=== PATIENT | male | born 1945 | race Caucasian/White ===

== ENCOUNTER 2021-03-03 09:26 | Emergency (ER) | payer OTHER, SELFPAY ==
--- NOTE | 2021-03-03 09:48 | ED_ITS ---
HPI - Extremity Problem General: Chief complaint: Extremity Problem,Nontraumatic Stated complaint: LUMP ON FINGER/L. HAND/SENT FROM [place] Time Seen by Provider: 03/03/21 09:32 History of Present Illness: HPI Narrative: 75-year-old male comes in complaining of a lump on his left third finger developed over the last couple of weeks. He cannot recall any particular trauma. No history of previous surgery or injury to that finger. He has not had any fever sweats or chills no drainage the area is mildly tender. They called and talked to the [place] doctor and he was referred here. MD Complaint: extremity swelling (Left third finger) Onset (ago): week(s) (2) Location: left and upper extremity Radiation: none Relieving factors: nothing Exacerbating factors: nothing Associated symptoms: Deny arthralgias, chest pain, fever(s), myalgias, rash or short of breath Review of Systems Const: Denies: fever(s) Card: Denies: chest pain Resp: Denies: dyspnea, productive cough or non-productive cough GI: Denies: abdominal pain, nausea, vomiting, hematemesis, coffee ground emesis, diarrhea, constipation, bloating, hematochezia or melena : Denies: flank pain, dysuria, urinary frequency or urinary urgency Skin/Breast: Denies: rash Physical Exam Const: COMMON NORMALS: no acute distress GENERAL APPEARANCE: cooperative and comfortable ORIENTATION/CONSCIOUSNESS: Yes awake, Yes oriented to person, Yes oriented to place and Yes oriented to time HENMT: COMMON NORMALS: normocephalic, atraumatic and hearing grossly normal bilaterally HEAD & SCALP: normocephalic and atraumatic Neck/C-Spine: COMMON NORMALS: no JVD Resp: COMMON NORMALS: normal respiratory effort, No retractions, No use of accessory muscles and clear to auscultation bilaterally AUSCULTATION: clear to auscultation bilaterally Cardio: COMMON NORMALS: no JVD, regular rate, regular rhythm and No murmurs present (Cardio) RATE: regular rate RHYTHM: regular rhythm GI: COMMON NORMALS: Soft to palpation and No hepatosplenomegaly present AUSCULTATION: Yes normoactive bowel sounds PALPATION: Yes Soft to palpation, No Tenderness to palpation present (GI), No Guarding due to palpation present (GI) and Yes No hepatosplenomegaly present Extremity: COMMON NORMALS: capillary refill normal, no clubbing, cyanosis or edema, no calf tenderness and no pedal edema NARRATIVE EXTREMITY EXAM: Proximal to the DIP on the left third finger there is a semifluctuant mass that is nontender to palpation. There is no overlying erythema redness or induration. Suspect ganglion cyst based on exam Neuro: SENSORIUM/ORIENTATION: Yes oriented to person, Yes oriented to place and Yes oriented to time Skin: COMMON NORMALS: no rashes or lesions noted GENERAL SKIN EXAM: no rashes or lesions noted Course Vital Signs: Vital signs: Vital Signs Temperature 98.2 F 03/03/21 09:50 Pulse Rate 55 L 03/03/21 09:50 Respiratory Rate 18 03/03/21 10:35 Blood Pressure 117/70 03/03/21 09:50 Pulse Oximetry 98 03/03/21 09:50 MDM - Extremity (Nontraumatic) MDM Narrative: Medical decision making narrative: Reviewed findings the patient recommend he follow-up with Ortho will have case management make arrangements. Discharge Plan Discharge Patient Disposition: Home Clinical Impression: Ganglion cyst of finger of left hand Condition: Stable Discharge Orders: Discharge ED (Routine); Ordered 03/03/21 Ordered By: Zenon Henao Referrals: [facility] [Primary Care Provider] - Patient Instructions: Opioid Safety Activity Restrictions/Additional Instructions: Case management will make arrangements for you to see orthopedics. Coding Level of Care Code ED Warehouse Delivery Driver for Soham Fwjesica Exam Comprehensive
[2021-03-03 09:50] VITALS: BP 117/70; PULSE 55; RESP 18; TEMP 36.8; O2SAT 98; BMI 39.4
[2021-03-03 09:53] VITALS: RESP 18
--- NOTE | 2021-03-03 10:06 | XR_ITS ---
WS: [id number] 3 views of the left fourth finger, 03/03/2021 Clinical Data: lump on 4th finger Comparison: None. Findings: No fractures or dislocations are seen. There is a soft tissue deformity on the dorsal aspect of the m iddle phalanx of the left fourth finger.No bone destruction or erosion is seen. There are no calcific ations associated with this soft tissue mass. XR/XR finger LT min 2V [id number] Impression: Soft tissue mass of the dorsal aspect of middle phalanx of the left fourth fing er.
[2021-03-03 10:35] VITALS: RESP 18
--- NOTE | 2021-03-03 12:03 | DCPLANNER ---
Addendum entered by Colette Alvarenga 03/03/21 12:12: woods manager sent patients information to the Dana with [facility] for the authorization process could be started. Original Note: woods manager had message to schedule a follow up appointment for patient with ortho for a ganglion cyst on left third finger. woods manager called the ortho clinic, spoke with Parisa, gave clinic patients information. woods manager was told that patients information would be printed and reviewed. Clinic will call patient with appointment information.
--- NOTE | 2021-03-15 09:54 | DCPLANNER ---
Addendum entered by Colette Alvarenga 03/30/21 14:46: manager parking spoke with Odalis at [facility], clinic has not been able to reach patient to schedule follow up appointment. Original Note: manager parking called the [facility] clinic to confirm that a follow up appointment had been scheduled for patient. manager parking spoke with Odalis, was told that patient is waiting on the [facility]. manager parking emailed patients information to Dana with [facility] so that the authorization could be started.
== END 2021-03-03 10:36 | disposition home or self-care (01) ==
PROVIDERS: Emergency Provider Family Medicine
DX: M67.442 Ganglion, left hand (principal)
CPT/HCPCS: 73140; 99282

== ENCOUNTER 2024-03-24 10:57 | Inpatient (IN) | payer OTHER, MEDICARE, SELFPAY ==
[2024-03-24] VITALS (34 sets, daily range): BP systolic 101–144; BP diastolic 50–82; PULSE 59–109; RESP 14–41; TEMP 36.4–37.2; O2SAT 91–100
--- NOTE | 2024-03-24 11:05 | XRR_ITS ---
PROCEDURE INFORMATION: Exam: XR Chest Exam date and time: 03/24/2024 11:09 AM Age: 78 years old Clinical indication: Shortness of breath TECHNIQUE: Imaging protocol: Radiologic exam of the chest. Views: 1 view. COMPARISON: CT chest w con* [id number] 07/14/2019 11:19 AM FINDINGS: Lungs: Dense reticular and airspace opacities are seen at the [id number]-left mid and lower lung zones, with possible right basilar and perihilar consolidates. Pleural spaces: Unremarkable. No pleural effusion. No pneumothorax. Heart/Mediastinum: Unremarkable. No cardiomegaly. Bones/joints: No suspicious osseous findings Other findings: Possible small right effusion XR/XR chest 1V portable [id number] IMPRESSION: Findings worrisome for multifocal pneumonia. Possible small right effusion. See above.
--- NOTE | 2024-03-24 11:07 | ED_ITS ---
HPI - SOB/Dyspnea 2 General: Chief Complaint: Shortness of Breath/Dyspnea Stated Complaint: sob Time Seen by Provider: 03/24/24 10:59 History of Present Illness: HPI Narrative: 78-year-old man with history of hyperten deborah, hypothyroidism, hyper lipidemia, who presents the emergency room with shortness of breath by ambulance. He says he has been feeling bad for couple weeks now at least. He says its become much worse over the last few days. He says he feels congestion in his chest like there might be fluid in his chest. No lower extremity swelling. He has some inspiratory chest pain that is diffuse. He is hypoxemic on presentation. EMS reports that when they picked him up he was in the 70s on room air. He has no known lung disease and has not required any oxygen at home. No altered mental status. No focal motor deficits. Review of Systems 2 Narrative: Constitutional symptoms: Negative except as documented in HPI. Skin symptoms: Negative except as documented in HPI. Eye symptoms: Negative except as documented in HPI. ENMT symptoms: Negative except as documented in HPI. Respiratory symptoms: Negative except as documented in HPI. Cardiovascular symptoms: Negative except as documented in HPI. Gastrointestinal symptoms: Negative except as documented in HPI. Genitourinary symptoms: Negative except as documented in HPI. Musculoskeletal symptoms: Negative except as documented in HPI. Neurologic symptoms: Negative except as documented in HPI. Psychiatric symptoms: Negative except as documented in HPI. Endocrine symptoms: Negative except as documented in HPI. FOR[facility]LY [facility] ED 2 PFS: Medical History (Updated 03/24/24 @ 16:05 by Akira Samuel MD) GERD (gastroesophageal reflux disease) Dyslipidemia Supracondylar fracture of left femur Hypertension Smoker Type 2 diabetes mellitus Surgical History (Updated 03/24/24 @ 16:05 by Akira Samuel MD) S/P ORIF (open reduction internal fixation) fracture Hx of tonsillectomy Physical Exam 2 Narrative: EXAM NARRATIVE: General: Alert, no acute distress. Skin: Warm, dry. Head: Normocephalic, atraumatic. Neck: Supple, trachea midline. Eye: Extraocular movements are intact. Ears, nose, mouth and throat: mucosa moist. Cardiovascular: Regular, Normal peripheral perfusion. Respiratory: Coarse lung sounds, no real wheeze, mild increased work of breathing with exertion but he seems more comfortable on oxygen, breath sounds are equal, Symmetrical chest wall expansion. Gastrointestinal: Soft, Nontender, Non distended, Normal bowel sounds. Musculoskeletal: Normal ROM, no deformity. Neurological: Alert and oriented, No focal neurological deficit observed. Psychiatric: Cooperative, appropriate mood & affect. Course 2 Vital Signs: Vital signs: Vital Signs Temperature 98.9 F 03/24/24 11:03 Pulse Rate 77 03/24/24 16:01 Respiratory Rate 18 03/24/24 15:01 Blood Pressure 123/63 03/24/24 16:00 Pulse Oximetry 100 03/24/24 16:01 Oxygen Delivery Me thod BiPAP 03/24/24 16:00 Oxygen Flow Rate 12 03/24/24 15:01 Fraction of Inspir ed Oxygen 40 03/24/24 16:01 MDM - SOB/Dyspnea Medical Decision Making Differential diagnosis for patient with shortness of breath includes but is not limited to and based on the above HPI, review of systems and physical exam: Pneumonia. Bronchitis. Asthma or COPD with acute exacerbation. Acute coronary syndrome / OR. Pulmonary embolism. Anxiety. Congestive heart failure. Viral infections including influenza and Covid-19. Atrial fibrillation. Anxiety. Pleural effusion. Pneumothorax. Workup: Lab work, chest X-ray and EKG ordered to evaluate, rule in and rule out above pathologies Lab Review: Laboratory results were reviewed and interpreted by myself the emergency room physician. EKG: Time 1109 rate 91. Normal sinus rhythm, No ST-T changes, no ectopy, normal ND & QRS intervals, This was reviewed and interpreted by myself the ER physician at 1115 Repeat EKG: Time 1248 rate 71 normal sinus rhythm, No ST-T changes, no ectopy, normal ND & QRS intervals, This was reviewed and interpreted by myself the ER physician at 1250 no significant changes from previous other than some slight slowing of his right Repeat EKG: Time 1535 rate 91 normal sinus rhythm, No ST-T changes, no ectopy, normal ND & QRS intervals, This was reviewed and interpreted by myself the ER physician at 1540 no changes from previous other than rate is back up in the 90s. Chest x-ray: Diffuse infiltrate which is likely a multifocal pneumonia. CT scan was ordered to further evaluate. This was reviewed and interpreted by myself the ER physician. CTA of the chest with PE protocol: Diffuse infiltrate consistent with a bilateral pneumonia. No PE. This was reviewed and interpreted by myself the emergency room physician. I also reviewed the radiology report. Prolonged emergency room stay: There was problem with lab and BUN was not reported until the 3-hour josh which delayed CTA of the chest. CTA of the chest was reported around 1510. At that point I called the hospitalist. I was attempting to get a CT scan done to determine for sure whether this was an infection versus heart failure before I started fluids and antibiotics. However the patient had a episode with desaturation so I went ahead and ordered antibiotics. Initially had some concern for heart failure and so CTA was done which confirmed that he had pneumonia not heart failure and so fluids were given at that time. I ordered fluids at 1545. I reviewed the patient's medical record. Reexamination: Patient is currently stable on a BiPAP he is tolerating it. He has had increased oxygen requirement so I placed him on a BiPAP. No altered mental status. No focal motor deficits. Consultation: I have consulted Dr. Hoff with the hospitalist service who is admitting. Assessment and plan: Pneumonia Hypoxemia Respiratory failure Sepsis -2 L normal saline bolus. Fluid volumes based on ideal body weight. There was some delay on administering fluids as I was concerned that the patient might have heart failure on his x-ray rather than pneumonia. -Broad-spectrum antibiotics were administered. Linezolid and meropenem were given. -Sepsis quality measures. -Lactic acid with a reflex was ordered. -Blood cultures were ordered. -Patient initially was requiring 3 to 4 L and as his day progressed he has had increased oxygen requirements. I placed him on a BiPAP and his sats are now up in the upper 90s. -Also gave a couple of breathing treatments and some Solu-Medrol when patient became more dyspneic. The seem to help some as well -I discussed the patient with the hospitalist on-call who is admitting the patient. - Discussed findings and plan with patient. Answered any questions. - All laboratory values were reviewed and interpreted personally by myself, the ER physician - All imaging was reviewed and interpreted personally by myself, the ER physician. - Evaluation and treatment of this problem were appropriate in the emergency setting -I spent a total of >35 minutes of critical care time managing the patient, independent of any other practitioner. -The time involved in the performance of separately reportable procedures was not counted towards critical care time. Lab Data 05/27/24 12:04 03/24/24 12:04 Labs/Radiology: Radiology Impressions Chest CTA 03/24/24 12:06 IMPRESSION: 1. No pulmonary embolism 2. Dense diffuse bilateral pneumonic infiltrates as above. Associated mild mediastinal adenopathy and pronounced bilateral hilar adenopathy.. Previously seen subpleural 9 mm RLL nodule is unchanged. 3. Chronic findings as above Chest X-Ray 03/24/24 14:37 IMPRESSION: No interval change in cardiopulmonary status. Laboratory Results WBC 12.39 10^3/uL (3.29-11.43) H 03/24/24 12:04 RBC 4.33 10^6/uL (3.85-5.65) 03/24/24 12:04 Hgb 12.00 g/dL (11.27-16.99) 03/24/24 12:04 Hct 36.2 % (37-53) L 03/24/24 12:04 MCV 83.6 fl (82-101) 03/24/24 12:04 MCH 27.7 pg (27-33) 03/24/24 12:04 MCHC 33.1 g/dL (30-55) 03/24/24 12:04 RDW 13.8 % (12.1-15.1) 03/24/24 12:04 Plt Count 319 10^3/cmm (157-399) 03/24/24 12:04 MPV 8.6 fL (7.4-10.4) 03/24/24 12:04 Neut % (Auto) 81.6 % 03/24/24 12:04 Lymph % (Auto) 10.9 % 03/24/24 12:04 Ellis % (Auto) 6.5 % 03/24/24 12:04 Eos % (Auto) 0.2 % 03/24/24 12:04 Baso % (Auto) 0.4 % 03/24/24 12:04 Neut # (Auto) 10.12 10^3/uL (1.8-7.7) H 03/24/24 12:04 Lymph # (Auto) 1.4 10^3/uL (0.8-4.8) 03/24/24 12:04 Ellis # (Auto) 0.8 10^3/uL (0.2-0.9) 03/24/24 12:04 Eos # (Auto) 0.0 10^3/uL (0.0-0.8) 03/24/24 12:04 Baso # (Auto) 0.1 10^3/uL (0.0-0.1) 03/24/24 12:04 Nucleated RBC % (auto) 0 % 03/24/24 12:04 Nucleated RBCs # 0.0 /100WBC 03/24/24 12:04 Specimen Type Arterial 03/24/24 14:53 Sample Site Radial, right 03/24/24 14:53 ABG pH 7.40 (7.35-7.45) 03/24/24 14:53 ABG pCO2 33.7 mmHg (35-45) L 03/24/24 14:53 ABG pO2 134.0 mmHg (80.0-100.0) H 03/24/24 14:53 ABG HCO3 20.8 mmol/L (22-26) L 03/24/24 14:53 ABG O2 Saturation 99.7 03/24/24 14:53 ABG Base Excess -3.4 mmol/L (-2.0-2.0) L 03/24/24 14:53 Ozzie Test Pos 03/24/24 14:53 A-a O2 Gradient Not Reportable 03/24/24 14:53 Hematocrit 34.6 % (42-52) L 03/24/24 14:53 Hgb O2 Saturation 97.5 % (95-100) 03/24/24 14:53 Carboxyhemoglobin 1.8 %THgb (0.4-20.1) 03/24/24 14:53 Methemoglobin 0.4 % (0.4-1.5) 03/24/24 14:53 Total Hemoglobin 11.3 g/dL (14-18) L 03/24/24 14:53 Sodium 135.0 mmol/L (131-143) 03/24/24 14:53 Potassium 3.7 mmol/L (3.5-5.0) 03/24/24 14:53 Glucose 109.0 mg/dL (70-115) 03/24/24 14:53 Ionized Calcium 1.2 mmol/L (1.1-1.4) 03/24/24 14:53 O2 Delivery Device Nrb 03/24/24 14:53 O2 Liters/Min 12.0 % 03/24/24 14:53 Chemistry Laboratory Technician ID Marlin 03/24/24 14:53 Sodium 137 mmol/L (136-145) 03/24/24 12:04 Potassium 4.1 mmol/L (3.5-5.1) 03/24/24 12:04 Chloride 103 mmol/L (98-107) 03/24/24 12:04 Carbon Dioxide 19 mmol/L (22-29) L 03/24/24 12:04 Anion Gap 19.1 (5-19) H 03/24/24 12:04 BUN 17 mg/dL (8-23) 03/24/24 12:04 Creatinine 0.9 mg/dL (0.7-1.2) 03/24/24 12:04 GFR Calculation Not Reportable 03/24/24 12:04 Glucose 120 mg/dL (65-115) H 03/24/24 12:04 Calculated Osmolality 287 mOsm/kg (285-295) 03/24/24 12:04 Lactic Acid 1.3 mmol/L (0.5-2.2) 03/24/24 12:04 Calcium 8.5 mg/dL (8.5-10.5) 03/24/24 12:04 Total Bilirubin 0.2 mg/dL (0.15-1.2) 03/24/24 12:04 AST 5 U/L (0-40) 03/24/24 12:04 ALT < 5 U/L (0-41) 03/24/24 12:04 Alkaline Phosphatase 106 U/L (40-130) 03/24/24 12:04 Troponin T Baseline 48 ng/L (0-15) H 03/24/24 12:04 Troponin T 120 Minute 46.65 ng/L (0-15) H 03/24/24 14:09 Delta Troponin T -1.35 ABS# (0-10) L 03/24/24 14:09 C-Reactive Protein 3.0 mg/L (0.0-4.9) 03/24/24 12:04 NT-Pro-B Natriuret Pep 597 pg/mL (0-450) H 03/24/24 12:04 Total Protein 7.2 g/dL (6.6-8.7) 03/24/24 12:04 Albumin 3.6 g/dL (3.5-5.2) 03/24/24 12:04 Globulin 3.6 g/dL (1.3-4.6) 03/24/24 12:04 All radiology interpretation(s) finalized by discharge Discharge Plan Discharge Patient Disposition: Admitted As Inpatient Clinical Impression: Community acquired pneumonia, Acute hypoxemic respiratory failure, Sepsis Condition: Stable Coding Level of Care Code ED Ammonia Still Operator for Soham Burnett
--- NOTE | 2024-03-24 11:09 | ECG_ITS ---
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 Measurements Intervals [place] Rate: 91 P: 48 WI: 207 QRS: -47 QRSD: 126 T: 83 QT: 395 QTc: 486 Interpretive Statements SINUS RHYTHM LEFT ANTERIOR FASCICULAR BLOCK [QRS AXIS <= -45, QR IN I, RS IN II] NONSPECIFIC ST & T-WAVE ABNORMALITY Compared to ECG 12/03/2017 12:45:44 Left anterior fascicular block now present T-wave abnormality now present Left-axis deviation no longer present Intraventricular conduction delay no longer present Electronically Signed On 03-24-2024 17:29:17 CDT by Donna Fletcher M.D. [id number]
[2024-03-24 11:21] LABS: ABG PCO2 31.1 mmHg (35-45); ABG PH Result 7.44 (7.35-7.45); Alveolar-Arterial Oxygen Gradi 5.5 mmHg (5-10); Arterial Blood Gas Hematocrit 35.7 % (42-52); Base Excess ABG -2.6 mmol/L (-2.0-2.0); Blood Gas Allen Test Pos; Blood Gas Operator Identificat WALCI; Blood Gas Sample Site Radial, left; Blood Gas Sample Type Arterial; Carboxyhemoglobin 2.1 %THgb (0.4-20.1); HCO3 ABG 20.8 mmol/L (22-26); HGB O2 Sat 92.3 % (95-100); Ionized Calcium Level - ABG 1.2 mmol/L (1.1-1.4); Methemoglobin 0.4 % (0.4-1.5); Oxygen Device NC; Oxygen Saturation ABG 94.7; PO2 ABG 67.6 mmHg (80.0-100.0); Potassium Level - ABG 3.7 mmol/L (3.5-5.0); Total Hemoglobin 11.6 g/dL (14-18)
--- NOTE | 2024-03-24 12:06 | CTR_ITS ---
PROCEDURE INFORMATION: Exam: CTA Chest With Contrast Exam date and time: 03/24/2024 2:48 PM Age: 78 years old Clinical indication: Dyspnea and hyperventilation; Additional info: Hypoxemia, tachycardia TECHNIQUE: Imaging protocol: Computed tomographic angiography of the chest with contrast. Exam focused on the arteries. 3D rendering (Not supervised by radiologist): MIP and/or 3D reconstructed images were created by the technologist. Radiation optimization: All CT scans at this facility use at least one of these dose optimization techniques: automated exposure control; mA and/or kV adjustment per patient size (includes targeted exams where dose is matched to clinical indication); or iterative reconstruction. Contrast material: OMNI 350; Contrast volume: 345.79 ml; Contrast route: INTRAVENOUS (IV); COMPARISON: CR (CHEST, ) 03/24/2024 11:09 AM RADIATION DOSE METRICS: Total DLP (mGy-cm): 345.79 FINDINGS: Pulmonary arteries: No pulmonary embolism. Pulmonary artery trunk is upper limits of normal; this can be seen in the setting of pulmonary hypertension. Aorta: Ascending thoracic aorta is upper limits of normal in size measuring 39 mm diameter Lungs: Dense diffuse airspace opacity seen throughout the entire right lung (with some sparing at the right apex) and involving the LLL, and to a lesser extent involving the HANG, with associated air bronchograms. Diffuse bronchiectasis now seen. Previously seen subpleural 9 mm RLL nodule is unchanged. Pleural spaces: Unremarkable. No pneumothorax. No pleural effusion. Heart: Trace pericardial effusion. Mild cardiomegaly Heart RV/LV ratio: RV/LV ratio equals 0.9, within normal limits. No findings of right heart strain. Coronary arteries: Coronary artery atheromatous calcifications Lymph nodes: Innumerable borderline enlarged to mildly enlarged mediastinal nodes. Prominent bilateral hilar low-density adenopathy, measuring maximally 21 mm short axis. Shotty supraclavicular nodes. Bones/joints: No suspicious osseous findings. Severe bilateral sternoclavicular DJD. Prominent thoracic kyphosis and thoracic DISH. Soft tissues: Unremarkable. CT/CT angio chest PE protcl [id number] IMPRESSION: 1. No pulmonary embolism 2. Dense diffuse bilateral pneumonic infiltrates as above. Associated mild mediastinal adenopathy and pronounced bilateral hilar adenopathy.. Previously seen subpleural 9 mm RLL nodule is unchanged. 3. Chronic findings as above
[2024-03-24 12:18] LABS: Basophils # 0.1 10^3/uL (0.0-0.1); Basophils % 0.4 %; Eosinophils % 0.2 %; Hematocrit 36.2 % (37-53); Lymphocytes # 1.4 10^3/uL (0.8-4.8); Lymphocytes % 10.9 %; Mean Corpuscular HGB Conc 33.1 g/dL (30-55); Mean Corpuscular Hemoglobin 27.7 pg (27-33); Mean Corpuscular Volume 83.6 fl (82-101); Mean Platelet Volume 8.6 fL (7.4-10.4); Monocytes # 0.8 10^3/uL (0.2-0.9); Monocytes % 6.5 %; Neutrophils # 10.12 10^3/uL (1.8-7.7); Neutrophils % 81.6 %; Nucleated Red Blood Cells % 0 %; Platelet Count 319 10^3/cmm (157-399); Red Blood Count 4.33 10^6/uL (3.85-5.65); Red Cell Distribution Width 13.8 % (12.1-15.1); White Blood Count 12.39 10^3/uL (3.29-11.43)
[2024-03-24 12:33] LABS: Troponin(5th) Baseline 48 ng/L (0-15)
[2024-03-24 12:35] LABS: Lactic Sepsis W/Reflex 1.3 mmol/L (0.5-2.2)
[2024-03-24 12:47] LABS: Alanine Aminotransferase < 5 U/L (0-41); Aspartate Amino Transferase 5 U/L (0-40); Total Bilirubin 0.2 mg/dL (0.15-1.2)
--- NOTE | 2024-03-24 12:48 | ECG_ITS ---
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 Measurements Intervals [place] Rate: 71 P: 75 MS: 193 QRS: -36 QRSD: 125 T: 56 QT: 427 QTc: 465 Interpretive Statements SINUS RHYTHM WITH OCCASIONAL SUPRAVENTRICULAR PREMATURE COMPLEXES LEFT AXIS DEVIATION [QRS AXIS < -30] MODERATE INTRAVENTRICULAR CONDUCTION DELAY [105+ ms QRS DURATION, 80+ ms Q/S IN V1/V2, NO Q AND 60+ ms R IN I/aVL/V5/V6] Compared to ECG 03/24/2024 11:09:39 Left-axis deviation now present Intraventricular conduction delay now present Left anterior fascicular block no longer present T-wave abnormality no longer present Electronically Signed On 03-24-2024 17:33:31 CDT by Donna Fletcher M.D. [email or web address].[employer]/store/[id number]
--- NOTE | 2024-03-24 13:05 | PC.PHAR ---
[facility] IS [facility]. [facility]. PT HAS PRESENTED A LIST WITH NAMES OF MEDICATIONS AND DOSAGE. HAD TO CALL TO GET STRENGTH OF EACH MEDICATION. PT HAS NOT HAD MEDICATIONS IN 2 DAYS. 03/24/24
[2024-03-24 14:02] LABS: Albumin Level 3.6 g/dL (3.5-5.2); Alkaline Phosphatase 106 U/L (40-130); Anion Gap 19.1 (5-19); Blood Urea Nitrogen 17 mg/dL (8-23); Calcium 8.5 mg/dL (8.5-10.5); Carbon Dioxide 19 mmol/L (22-29); Chloride 103 mmol/L (98-107); Creatinine Clr Calc Pharmacy 76.9809; Globulin 3.6 g/dL (1.3-4.6); Glucose 120 mg/dL (65-115); NT Pro B Type Natriuretic Pept 597 pg/mL (0-450); Osmolality Calculated 287 mOsm/kg (285-295); Potassium 4.1 mmol/L (3.5-5.1); Sodium 137 mmol/L (136-145); Total Protein 7.2 g/dL (6.6-8.7)
[2024-03-24 14:36] LABS: Troponin 5 2HR 46.65 ng/L (0-15)
--- NOTE | 2024-03-24 14:37 | XRR_ITS ---
PROCEDURE INFORMATION: Exam: XR Chest Exam date and time: 03/24/2024 2:51 PM Age: 78 years old Clinical indication: Shortness of breath TECHNIQUE: Imaging protocol: Radiologic exam of the chest. Views: 1 view. COMPARISON: CT angio chest PE protcl [id number] 03/24/2024 2:48 PM FINDINGS: Lungs: Unchanged appearance of dense diffuse bilateral lung opacities. Pleural spaces: Unremarkable. No pleural effusion. No pneumothorax. Heart/Mediastinum: Unremarkable. No cardiomegaly. Bones/joints: No suspicious osseous findings XR/XR chest 1V portable [id number] IMPRESSION: No interval change in cardiopulmonary status.
[2024-03-24 14:39] LABS: Troponin 5 2HR Delta -1.35 ABS# (0-10)
--- NOTE | 2024-03-24 14:39 | ECG_ITS ---
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 Measurements Intervals [place] Rate: 82 P: 64 KS: 194 QRS: -54 QRSD: 125 T: 68 QT: 395 QTc: 461 Interpretive Statements SINUS RHYTHM WITH SINUS ARRHYTHMIA LEFT ANTERIOR FASCICULAR BLOCK [QRS AXIS <= -45, QR IN I, RS IN II] Compared to ECG 03/24/2024 12:48:35 Left anterior fascicular block now present Left-axis deviation no longer present Intraventricular conduction delay no longer present Electronically Signed On 03-24-2024 17:33:41 CDT by Donna Fletcher M.D. [id number]
[2024-03-24] MEDS: methylPREDNISolone sod succ 125 mg/2 mL INJ IVP (14:42)
[2024-03-24] MEDS: iohexol 350 mg/mL 500 mL Btl (per mL) IV (14:50)
--- NOTE | 2024-03-24 14:53 | PC.NURSE ---
UPON ENTERING THE ROOM, PT OXYGEN SATING IN THE 80S ON 4L NASAL CANNULA. PT PLACED ON 15L NONREBREATHER TO ALLOW PT TO RECOVER. PT OXYGEN 100% ON THE NONREBREATHER. PT PLACED BACK ON NASAL CANNULA AT 6L, BUT OXYGEN CONTINUED TO SAT AROUND 85%. PT PLACED BACK ON NONREBREATHER AT 10L AND SATING IN THE UPPER 90S. DR MONTAGUE NOTIFED.
[2024-03-24] MEDS: albuterol 2.5 mg/3 mL Neb INHALATION (14:56)
[2024-03-24] MEDS: ipratropium-albuterol 3 mL Neb INHALATION ×2 (14:56→19:47)
[2024-03-24] MEDS: meropenem 500 MG in sodium chloride 0.9% (plus) 50 ML 100 MG IV (14:59)
[2024-03-24 15:04] LABS: ABG PCO2 33.7 mmHg (35-45); Arterial Blood Gas Hematocrit 34.6 % (42-52); Base Excess ABG -3.4 mmol/L (-2.0-2.0); Blood Gas Allen Test Pos; Blood Gas Operator Identificat WALCI; Blood Gas Sample Site Radial, right; Blood Gas Sample Type Arterial; Carboxyhemoglobin 1.8 %THgb (0.4-20.1); HCO3 ABG 20.8 mmol/L (22-26); HGB O2 Sat 97.5 % (95-100); Ionized Calcium Level - ABG 1.2 mmol/L (1.1-1.4); Methemoglobin 0.4 % (0.4-1.5); Oxygen Device NRB; Oxygen Saturation ABG 99.7; Potassium Level - ABG 3.7 mmol/L (3.5-5.0); Total Hemoglobin 11.3 g/dL (14-18)
[2024-03-24] MEDS: linezolid premix 600 MG/300 ML PREMIX 300 MG IV (15:27)
--- NOTE | 2024-03-24 16:11 | USCV_ITS ---
Remi Palm Age: 78 Gender: M : 1945 Exam Date: 03/24/2024 16:44 Ordering Phys: Akira Samuel MD Technologist: Exam Location: [facility] [place] Indication: resp failure BP: 148 / 78 HR: Rhythm: Sinus Technical Quality: Adequate MEASUREMENTS (Male / Female) Normal Values 2D ECHO LV Diastolic Diameter PLAX 4.3 cm 4.2 - 5.9 / 3.9 - 5.3 cm IVS Diastolic Thickness 1.1 cm 0.6 - 1.0 / 0.6 - 0.9 cm IVS Systolic Thickness 1.2 cm LVPW Diastolic Thickness 1.3 cm 0.6 - 1.0 / 0.6 - 0.9 cm LVPW Systolic Thickness 2.0 cm LVOT Diameter 2.0 cm LV Ejection Fraction 2D Teich 38.9 % LV Ejection Fraction MOD 2C 66.4 % LV Ejection Fraction 2C AL 68.1 % LA Diameter 3.7 cm RA Systolic Volume 4C AL 35.0 ml RA Systolic Volume 4C MOD 36.3 ml Aorta at Sinotubular Diameter 2.5 cm IVC Diameter 1.8 cm M-MODE LA Ao Ratio MM 1.2 AV Cusp Separation MM 2.2 cm DOPPLER AV Peak Velocity 103.7 cm/s LVOT Peak Velocity 124.0 cm/s AV Area Cont Eq vti 5.0 cm squared AV Area Cont Eq pk 3.8 cm squared MV Peak Velocity 139.0 cm/s MV Area PHT 5.6 cm squared Mitral E to A Ratio 0.8 TV Peak Velocity 373.0 cm/s TR Peak Velocity 399.0 cm/s TR Peak Gradient 63.7 mmHg TV Peak E Velocity 127.0 cm/s Right Atrial Pressure 3.0 mmHg Pulmonary Artery Systolic Pressu 66.7 mmHg PV Peak Velocity 95.0 cm/s FINDINGS Left Ventricle Left ventricle is normal size. LV systolic function is normal with EF of 55 to 60%. No regional wall motion abnormalities are seen. Grade 1 diastolic dysfunction Right Ventricle Normal in size and function Right Atrium Normal in size Left Atrium Normal in size Mitral Valve Structurally normal mitral valve. Trace mitral regurgitation. Aortic Valve Structurally normal aortic valve. No significant stenosis. Mild to moderate aortic regurgitation. Tricuspid Valve Mild to moderate tricuspid regurgitation. RVSP is more than 60 mmHg. This is consistent with severe tricuspid regurgitation. Pulmonic Valve Trace pulmonic regurgitation. Pericardium Normal Aorta Normal in size IVC Appears to be normal CONCLUSIONS LV systolic function is normal with EF of 55-60% Grade 1 diastolic dysfunction Trace mitral regurgitation Mild to moderate aortic regurgitation Mild to moderate tricuspid regurgitation Severe tricuspid regurgitation Trace pulmonic regurgitation No comparison studies are available. Isidro Platt MD (Electronically Signed) Final Date: 25 Mar 2024 17:04 S
--- NOTE | 2024-03-24 16:13 | P.HP_ITS ---
Providers/Chief Complaint 2 Primary Care Provider: [facility] Chief Complaint: sob History of Present Illness Remi Palm is a 78 year old male with past medical history of hypertension, hyperlipidemia, hypothyroidism who presents to the ER today because of difficulty in breathing which has been progressively getting worse over the last 3 weeks. Patient with cough and expectoration increasing over last 2 weeks. Also associated with runny nose and PND. Denies any sick contacts or recent travels. Decreased appetite for the last 2 days. In the ER on presentation was saturating in the low 80s on 4 L and was not able to maintain oxygenation on 12 L of nonrebreather hence placed on BiPAP. Currently off BiPAP patient is having respiratory distress with saturations falling down to low 80s. Review of Systems 2 General: Reports: 10 or more systems reviewed and unremarkable except in HPI and below Const: Denies: fever(s), chills, body aches, change in appetite, change in weight, malaise, night sweats, diaphoresis, change in sleep pattern, daytime sleepiness or snoring Eyes: Denies: change in vision, blurry vision, photophobia, eye discomfort or eye discharge ENMT: Denies: throat pain, enlarged tonsils, hoarseness, mouth pain, oral sores, dry mouth, tinnitus, nasal congestion or post nasal drip Card: Denies: chest pain, palpitations, irregular heart rhythm, edema, swelling of feet/ankles, lightheadedness, syncope, pre-syncope, dyspnea on exertion, orthopnea, leg pain with exertion or acrocyanosis Resp: Denies: dyspnea, productive cough, non-productive cough, wheezing, stridor, pain on inspiration, change in phlegm color, hemoptysis or chest congestion GI: Denies: abdominal pain, nausea, vomiting, hematemesis, coffee ground emesis, dysphagia, heartburn, diarrhea, constipation, bloating, GI cramping, change in bowel habits, pain on defecation, hematochezia or melena : Denies: flank pain, difficulty urinating, dysuria, urinary frequency, urinary urgency, urinary hesitancy, urinary dribbling, difficulty starting urination, change in urine stream, nocturia or hematuria Musc: Denies: neck pain, back pain, extremity pain, joint pain, joint swelling, joint redness, joint stiffness or limited range of motion Neuro: Denies: headache(s), numbness in extremities, weakness in extremities, sensory changes, lack of coordination, difficulty walking, frequent falls, dizziness, vertigo, confusion, Slurred speech present, difficulty communicating thoughts or seizure-like activity Psych: Denies: anxiety, depression, mood swings, panic attacks, hopelessness or irritability Endo: Denies: polyuria, polydipsia, tired all the time, cold intolerance, excessive sweating, flushing or heat intolerance Eliot/Lymph: Denies: easy bruising or easy bleeding All/Imm: Denies: tongue swelling, facial swelling or acute wheezing Medications/Allergies Home Medications Medication Instructions Recorded Confirmed Last Taken Type amitriptyline 10 mg tablet 20 mg PO BEDTIME 03/24/24 03/24/24 03/22/24 History amlodipine 10 mg tablet 10 mg PO DAILY 03/24/24 03/24/24 03/22/24 History aspirin 81 mg tablet,delayed 81 mg PO DAILY 03/24/24 03/24/24 03/22/24 History release bupropion HCl 200 mg tablet,12 hr 200 mg PO BID 03/24/24 03/24/24 03/22/24 History sustained-release citalopram 40 mg tablet 20 mg PO DAILY 03/24/24 03/24/24 03/22/24 History gabapentin 300 mg capsule 300 mg PO TID 03/24/24 03/24/24 03/22/24 History hydrocodone 5 mg-acetaminophen 325 1 tab PO BID PRN Pain (Scale Score 03/24/24 03/24/24 Unknown History mg tablet 1-3) ibuprofen 800 mg tablet 800 mg PO TID 03/24/24 03/24/24 03/22/24 History levothyroxine 200 mcg tablet 200 mcg PO QAM 03/24/24 03/24/24 03/22/24 History losartan 25 mg tablet 12.5 mg PO DAILY 03/24/24 03/24/24 03/22/24 History methocarbamol 750 mg tablet 750 mg PO TID 03/24/24 03/24/24 03/22/24 History omeprazole 20 mg tablet,delayed 20 mg PO BID 03/24/24 03/24/24 03/22/24 History release pravastatin 40 mg tablet 40 mg PO QPM 03/24/24 03/24/24 03/22/24 History pyridoxine (vitamin B6) 25 mg 25 mg PO DAILY 03/24/24 03/24/24 03/22/24 History tablet (Vitamin B-6) tamsulosin 0.4 mg capsule 0.4 mg PO DAILY 03/24/24 03/24/24 03/22/24 History Allergies Allergy/AdvReac Type Severity Reaction Status Date / Time doxycycline Allergy ALGY-Hives Verified 03/03/21 09:50 Penicillins Allergy ALGY-Hives Verified 03/03/21 09:50 Sulfa (Sulfonamide Allergy ALGY-Hives Verified 03/03/21 09:50 Antibiotics) PFSH Acute 2 PFSH: Medical History (Updated 03/24/24 @ 16:05 by Akira Samuel MD) GERD (gastroesophageal reflux disease) Dyslipidemia Supracondylar fracture of left femur Hypertension Smoker Type 2 diabetes mellitus Surgical History (Updated 03/24/24 @ 16:05 by Akira Samuel MD) S/P ORIF (open reduction internal fixation) fracture Hx of tonsillectomy Vitals/I&O/Wt Last Vital Signs Temp 98.9 F 03/24/24 11:03 Pulse 77 03/24/24 16:01 Resp 18 03/24/24 15:01 BP 123/63 03/24/24 16:00 Pulse Ox 100 03/24/24 16:01 O2 Del Method BiPAP 03/24/24 16:00 O2 Flow Rate 12 03/24/24 15:01 FiO2 40 03/24/24 16:01 03/24/24 03/24/24 03/24/24 06:59 14:59 22:59 Intake Total 50 / 50 Balance 50 / 50 Weight last 48 hrs Weight 88.451 kg Physical Exam 2 Narrative: General: No acute distress, AO x3, dehydrated, BiPAP HEENT: PERRLA, pupils bilaterally equal and reactive Chest: Bilateral normal Cerrobend sounds all over lung almaguer, bilateral crackles with occasional rhonchi both lung almaguer and midline lower zone CVS: S1-S2 regular, no murmurs, tachycardia, no gallops, no rubs Abdomen: Soft, nontender, no organomegaly, bowel sounds present Neuro: No focal deficits, no facial deformity, AO x3, power 5/5 in all limbs Quick SOFA Score: Respiratory Rate: 38 Blood Pressure: 123/63 [place] Coma Scale: 15 qSOFA Score: 1 If qSOFA score 2 or greater, continue: Blood Pressure Mean: 83 Bilirubin (mg/dl): 0.2 Platelets (x10?/ml): 319 Creatinine (mg/dl): 0.9 Evaluation: Current stage of sepsis: sepsis Sepsis stage criteria used: [facility] Sep-1 and Sepsis-3 Crystalloid fluids: 30 mL/kg crystalloid fluids ordered and initiated within 3 hours Blood cultures ordered: Yes Possible source: pulmonary Focused Exam: Vital signs: Temp Pulse Resp BP Pulse Ox O2 Del Method O2 Flow Rate 03/24/24 16:01 77 100 03/24/24 16:00 65 123/63 99 BiPAP 40 03/24/24 15:30 81 129/66 98 BiPAP 03/24/24 15:23 80 98 03/24/24 15:01 96 Non-Rebreather 12 03/24/24 15:01 80 18 100 Non-Rebreather 12 03/24/24 13:00 67 112/56 91 Nasal Cannula 4 03/24/24 12:00 80 111/50 93 Nasal Cannula 4 03/24/24 11:03 98.9 F 95 18 137/80 93 FiO2 03/24/24 16:01 40 03/24/24 16:00 03/24/24 15:30 03/24/24 15:23 40 03/24/24 15:01 03/24/24 15:01 03/24/24 13:00 03/24/24 12:00 03/24/24 11:03 Respiratory exam: Yes crackles, rhonchi and respiratory distress Date exam was performed: 03/24/24 Time exam was performed: 18:17 2 Sepsis Screen No Definite Risk 03/24/24 16:00 Respiratory Rate 38 breaths/min H (12 - 18) 03/24/24 17:35 Blood Pressure 123/63 mmHg 03/24/24 16:00 [place] Coma Scale Score 15 03/24/24 17:26 Quick SOFA Score 1 03/24/24 17:26 SOFA Score: 2 [place] Coma Scale Score 15 03/24/24 17:26 Blood Pressure Mean 83 mmHg 03/24/24 16:00 Total Bilirubin 0.2 mg/dL (0.15-1.2) 03/24/24 12:04 Platelet Count 319 10^3/cmm (157-399) 03/24/24 12:04 Creatinine 0.9 mg/dL (0.7-1.2) 03/24/24 12:04 SOFA Score 3 03/24/24 17:23 Data 03/24/24 12:04 03/24/24 12:04 Micro: Microbiology 03/24/24 12:08 Blood Culture - Preliminary Blood SPECIMEN COLLECTED 03/24/24 12:04 Blood Culture - Preliminary Blood SPECIMEN COLLECTED A&P Assessment and plan (1) Acute hypoxemic respiratory failure: Most likely in setting of bilateral pneumonia. Appreciate CTA done in the ER. No pulm embolism. Oxygen supplementation keeping saturation over 90%. Remain on BiPAP for now. NPO. Pulmicort twice daily, DuoNebs every 6 hour. Solu-Medrol 40 mg every 6 hourly for now. (2) Community acquired pneumonia: Check sputum culture, MRSA swab, respiratory viral panel, urine Legionella, bacterial antigen. As patient is in respiratory failure for now we will start on broad-spectrum antibiotics with IV vancomycin and meropenem. Patient is allergic to penicillin. If MRSA swab is negative will discontinue vancomycin. Azithromycin for atypical coverage. (3) Sepsis: SIRS: Tachycardic, leukocytosis Source: Pneumonia End organ damage: Acute respiratory failure Lactic acid within normal limits Patient did receive full 30 mL/kg BW. Start on normal saline 75 cc/h for that. Monitor blood pressures. Keep mean artery pressure 65 mmHg. (4) Type 2 diabetes mellitus: Check A1c. Start on insulin sliding scale low-dose protocol. (5) Hypertension: Goal blood pressure less than 140/90 mmHg. Takes losartan 12.5 mg daily at home. For now we will hold off. Restart as for goal blood pressures. Plan Continue chronic home medications. CODE STATUS: Discussed in detail with the patient. Full code N.p.o. for now. Protonix OPD prophylaxis Heparin 5000 every 12 hourly for DVT prophylaxis Admit to ICU. Attestations 2 Medical Necessity Statement*: Admission for more than 2 midnights for management of acute hypoxic respiratory failure in setting of bilateral pneumonia as patient is BiPAP dependent Diagnoses Acute hypoxemic respiratory failure J96.01 Community acquired pneumonia J18.9 Sepsis A41.9 Type 2 diabetes mellitus E11.9 Hypertension I10
[2024-03-24] MEDS: sodium chloride 0.9% 1,000 ML 999 ML IV ×2 (16:33)
[2024-03-24 16:42] LABS: Procalcitonin 0.13 ng/mL (0-0.5); Thyroid Stimulating Hormone 2.17 uIU/mL (0.27-4.20)
[2024-03-24 17:00] LABS: Iron 18 ug/dL (59-158); Percent Saturation 8.4 % (20-50); Total Iron Binding Capacity 213 mcg/dl; Unsaturated Iron Binding 195 ug/dL (112-347)
[2024-03-24] MEDS: atorvastatin 40 mg Tablet 20 MG PO (18:05)
[2024-03-24] MEDS: buPROPion SR (12 HR) 100 mg Tablet 200 MG PO (18:06)
[2024-03-24] MEDS: pantoprazole 40 mg SDV IVP (18:06)
[2024-03-24] MEDS: sodium chloride 0.9% 1,000 ML 75 ML IV (18:06)
[2024-03-24] MEDS: heparin 5,000 unit/mL INJ 1 mL 5000 UNIT SUBCUT (18:06)
[2024-03-24] MEDS: vancomycin 1,000 MG in sodium chloride 0.9% 250 ML 250 MG IV (18:07)
[2024-03-24 18:31] LABS: Vitamin B12 268 pg/mL (232-1245)
[2024-03-24] MEDS: budesonide 0.5 mg/2 mL Neb INHALATION (19:47)
[2024-03-24 19:55] LABS: Add Urine Culture? Yes; Add Urine Microscopic? YES; Bacteria Urine TRACE /hpf; Bilirubin Urine Neg (Negative); Blood Urine 2+ (Negative); Glucose Urine UA Trace (Normal); Ketones Urine 1+ (Negative); Leukocyte Esterase Urine 2+ (Negative); Mucus Urine TRACE /hpf; Nitrate Urine Negative (Negative); Protein Urine Trace (Negative); Squamous Epithelial Cell Urine 0-4 /hpf (0-5); Urine Appearance Cloudy (CLEAR); Urine Color Yellow (Yellow); Urobilinogen Urine Neg (Negative); WBC Urine 25-40 /hpf (0-5); pH Urine 6.5 (5-7)
[2024-03-24 20:02] LABS: Troponin 5 6HR 43.21 ng/L (0-15); Troponin 5 6HR Delta -4.79 ng/L (0-12)
[2024-03-24] MEDS: methylPREDNISolone sod succ 40 mg/mL INJ IVP (20:09)
[2024-03-24] MEDS: gabapentin 300 mg Capsule PO (20:09)
[2024-03-24 21:20] LABS: Adenovirus Not Detected (NOT DETECT); Chlamydia Pneumoniae Not Detected (NOT DETECT); Coronavirus 229E,HKU1,NL63,OC4 Not Detected (NOT DETECT); Human Metapneumovirus Not Detected (NOT DETECT); Human Rhinovirus/Enterovirus Not Detected (NOT DETECT); Influenza A Not Detected (NOT DETECT); Influenza A H1 Not Detected (NOT DETECT); Influenza A H1-2009 Not Detected (NOT DETECT); Influenza A H3 Not Detected (NOT DETECT); Influenza B Not Detected (NOT DETECT); Mycoplasma Pneumoniae Not Detected (NOT DETECT); Parainfluenza Virus Type 1 Not Detected (NOT DETECT); Parainfluenza Virus Type 2 Not Detected (NOT DETECT); Parainfluenza Virus Type 3 Not Detected (NOT DETECT); Parainfluenza Virus Type 4 Not Detected (NOT DETECT); Respiratory Syncytial Virus A Not Detected (NOT DETECT); Respiratory Syncytial Virus B Not Detected (NOT DETECT); SARS-COV-2 Not Detected (NOT DETECT)
[2024-03-24 21:27] LABS: Glucose Point of Care 187 mg/dL (70-110)
[2024-03-24] MEDS: meropenem 1,000 MG in sodium chloride 0.9% (plus) 50 ML 100 MG IV (21:36)
[2024-03-24] MEDS: insulin lispro 100 unit/1 mL SUBCUT (21:40)
[2024-03-25] VITALS (69 sets, daily range): BP systolic 93–137; BP diastolic 42–83; PULSE 58–94; RESP 4–51; TEMP 36.3–37.1; O2SAT 87–99
[2024-03-25] MEDS: ipratropium-albuterol 3 mL Neb INHALATION ×4 (02:43→20:12)
[2024-03-25] MEDS: methylPREDNISolone sod succ 40 mg/mL INJ IVP ×3 (03:05→17:33)
[2024-03-25 04:04] LABS: Basophils % 0.3 %; Hematocrit 35.3 % (37-53); Lymphocytes # 0.7 10^3/uL (0.8-4.8); Lymphocytes % 10.2 %; Mean Corpuscular HGB Conc 32.9 g/dL (30-55); Mean Corpuscular Hemoglobin 27.8 pg (27-33); Mean Corpuscular Volume 84.7 fl (82-101); Monocytes # 0.1 10^3/uL (0.2-0.9); Monocytes % 0.9 %; Neutrophils # 6.22 10^3/uL (1.8-7.7); Neutrophils % 88.2 %; Nucleated Red Blood Cells % 0 %; Platelet Count 301 10^3/cmm (157-399); Red Blood Count 4.17 10^6/uL (3.85-5.65); Red Cell Distribution Width 13.7 % (12.1-15.1); White Blood Count 7.05 10^3/uL (3.29-11.43)
[2024-03-25] MEDS: vancomycin 1,000 MG in sodium chloride 0.9% 250 ML 250 MG IV ×2 (04:19→17:18)
[2024-03-25 04:23] LABS: Estmated Average Glucose 120; Hemoglobin A1C 5.8 % (4.0-6.0)
[2024-03-25 04:27] LABS: Alanine Aminotransferase 17 U/L (0-41); Albumin Level 3.3 g/dL (3.5-5.2); Alkaline Phosphatase 91 U/L (40-130); Anion Gap 16.9 (5-19); Aspartate Amino Transferase 21 U/L (0-40); Blood Urea Nitrogen 17 mg/dL (8-23); Calcium 8.4 mg/dL (8.5-10.5); Carbon Dioxide 20 mmol/L (22-29); Chloride 103 mmol/L (98-107); Creatinine Clr Calc Pharmacy 83.6268; Globulin 4.3 g/dL (1.3-4.6); Glucose 138 mg/dL (65-115); Magnesium 1.8 mg/dL (1.7-2.3); Osmolality Calculated 286 mOsm/kg (285-295); Phosphorus 3.2 mg/dL (2.5-4.5); Potassium 3.9 mmol/L (3.5-5.1); Sodium 136 mmol/L (136-145); Total Bilirubin 0.4 mg/dL (0.15-1.2); Total Protein 7.6 g/dL (6.6-8.7)
[2024-03-25 04:30] LABS: Cholesterol 108 mg/dL (0-200); HDL Cholesterol 40 mg/dL (60-100); LDL Cholesterol Calculated 56 mg/dL (50-129); Procalcitonin 0.13 ng/mL (0-0.5); Triglycerides 59 mg/dL (0-150)
[2024-03-25 04:39] LABS: Folate Level 4.7 ng/mL (4.5-32.2)
[2024-03-25] MEDS: meropenem 1,000 MG in sodium chloride 0.9% (plus) 50 ML 100 MG IV ×3 (05:31→21:12)
[2024-03-25] MEDS: levothyroxine 200 mcg Tablet PO (05:32)
[2024-03-25] MEDS: sodium chloride 0.9% 1,000 ML 75 ML IV (05:35)
[2024-03-25] MEDS: heparin 5,000 unit/mL INJ 1 mL 5000 UNIT SUBCUT ×2 (05:36→17:18)
[2024-03-25] MEDS: budesonide 0.5 mg/2 mL Neb INHALATION ×2 (07:33→20:12)
[2024-03-25 08:32] LABS: Glucose Point of Care 157 mg/dL (70-110)
[2024-03-25] MEDS: buPROPion SR (12 HR) 100 mg Tablet 200 MG PO ×2 (08:43→17:19)
[2024-03-25] MEDS: citalopram 20 mg Tablet PO (08:43)
[2024-03-25] MEDS: amlodipine 10 mg Tablet PO (08:43)
[2024-03-25] MEDS: aspirin 81 mg EC Tablet PO (08:43)
[2024-03-25] MEDS: tamsulosin 0.4 mg Capsule 0.400000000000000022 MG PO (08:43)
[2024-03-25] MEDS: gabapentin 300 mg Capsule PO ×3 (08:43→20:11)
[2024-03-25] MEDS: insulin lispro 100 unit/1 mL SUBCUT ×3 (08:44→21:12)
[2024-03-25 12:50] LABS: Glucose Point of Care 131 mg/dL (70-110)
--- NOTE | 2024-03-25 14:32 | PC.NURSE ---
Report given to Tosha TSAI. All vital signs stable upon transfer. All questions and concerns addressed in hand off report
--- NOTE | 2024-03-25 14:36 | PM.PN ---
Subjective Subjective: No acute events overnight. Today morning patient seen sitting up in chair on 3 L of oxygen supplementation saturating more than 95%. Patient states he is feeling a lot better. Denies any nausea, ting, headache. Has remained hemodynamically stable and afebrile. Document urine output of around 1300 cc. Vitals/I&O/Wt Last Vital Signs Temp 98.6 F 03/25/24 12:15 Pulse 82 03/25/24 13:50 Resp 16 03/25/24 13:41 BP 119/59 03/25/24 13:30 Pulse Ox 98 03/25/24 13:41 O2 Del Method Nasal Cannula 03/25/24 13:41 O2 Flow Rate 4 03/25/24 13:41 FiO2 35 03/25/24 07:33 03/24/24 03/25/24 03/25/24 22:59 06:59 14:59 Intake Total 2770 / 2770 861.25 / 3631.25 900 / 900 Output Total 800 / 800 500 / 1300 Balance 1969 / 1969 361.25 / 2331.25 900 / 900 Weight last 48 hrs Weight 82.327 kg Weight 81.647 kg Weight 88.451 kg Physical Exam Narrative: General: No acute distress, AO x3, on nasal canula HEENT: PERRLA, pupils bilaterally equal and reactive Chest: Bilateral normal vesicular breath sounds all over lung almaguer, bilateral crackles with occasional rhonchi both lung almaguer and midline lower zone CVS: S1-S2 regular, no murmurs, tachycardia, no gallops, no rubs Abdomen: Soft, nontender, no organomegaly, bowel sounds present Neuro: No focal deficits, no facial deformity, AO x3, power 5/5 in all limbs Resp: EFFORT & INSPECTION: Yes respiratory distress AUSCULTATION: crackles and rhonchi Urinary Catheter Management: Obrien: Cath Placed During This Visit: yes Reason for Continuing Indwelling Catheter: Accurate Measurement of Urinary Output in Critically Ill Patients Urinary Catheter Date of Insertion: 03/24/24 Urinary Catheter Time of Insertion: 05:45 Data 03/25/24 03:03 03/25/24 03:03 Micro: Microbiology 03/24/24 12:08 Blood Culture - Preliminary Blood NEGATIVE TO DATE 03/24/24 12:04 Blood Culture - Preliminary Blood NEGATIVE TO DATE 03/24/24 19:20 Bacterial Antigens - Final Urine Kidney 03/24/24 19:20 Legionella Urinary Antigen - Final Unknown Source A&P Assessment and plan (1) Acute hypoxemic respiratory failure: Most likely in setting of bilateral pneumonia. Appreciate CTA negative for pulmonary embolism Oxygen supplementation keeping saturation over 90%. Wean BiPAP accordingly. Aggressive pulmonary toilet with I-S and Acapella. Pulmicort twice daily, DuoNebs every 6 hour. Wean Solu-Medrol 40 mg twice daily. (2) Community acquired pneumonia: Sputum culture pending, MRSA swab pending, Respiratory viral panel, urine Legionella, bacterial antigen negative. For now continue with IV vancomycin and meropenem. Patient is allergic to penicillin. If MRSA swab is negative will discontinue vancomycin. Azithromycin for atypical coverage. (3) Sepsis: Resolving. Present on admission. SIRS: Tachycardic, leukocytosis Source: Pneumonia End organ damage: Acute respiratory failure Lactic acid within normal limits Patient did receive full 30 mL/kg BW. Start on normal saline 75 cc/h for that. Monitor blood pressures. Keep mean artery pressure 65 mmHg. (4) Type 2 diabetes mellitus: Diabetes rule out. A1c 5.8. Insulin sliding scale as patient is on high-dose steroids. (5) Hypertension: Goal blood pressure less than 140/90 mmHg. Takes losartan 12.5 mg, amlodipine 10 mg daily at home. For now we will continue to hold off on losartan. Continue with home dose of amlodipine. Uptitrate as per goal blood pressures. Echocardiogram done. Results awaited. Plan Continue chronic home medications including levothyroxine, Celexa, atorvastatin, baby aspirin. CODE STATUS: Discussed in detail with the patient. Full code Started on clear liquid diet. If tolerating well will transition to regular diet by night. Protonix OPD prophylaxis Heparin 5000 every 12 hourly for DVT prophylaxis Physical therapy. [facility]. Attestations Medical Necessity Statement*: Requires further hospitalization management of respiratory failure in setting of bilateral community-acquired pneumonia Diagnoses Acute hypoxemic respiratory failure J96.01 Community acquired pneumonia J18.9 Sepsis A41.9 Type 2 diabetes mellitus E11.9 Hypertension I10
[2024-03-25] MEDS: azithromycin 250 mg Tablet 500 MG PO (16:00)
[2024-03-25 16:41] LABS: Glucose Point of Care 191 mg/dL (70-110)
[2024-03-25] MEDS: atorvastatin 40 mg Tablet 20 MG PO (17:19)
[2024-03-25] MEDS: pantoprazole 40 mg SDV IVP (17:33)
[2024-03-25 20:39] LABS: Glucose Point of Care 158 mg/dL (70-110)
[2024-03-25] MEDS: FUROsemide 10 mg/mL SDV 2mL 20 MG IVP (21:41)
[2024-03-26] VITALS (15 sets, daily range): BP systolic 107–117; BP diastolic 47–60; PULSE 60–91; RESP 16–30; TEMP 36.4–36.9; O2SAT 90–94
[2024-03-26] MEDS: ipratropium-albuterol 3 mL Neb INHALATION ×4 (03:01→20:54)
[2024-03-26 04:22] LABS: Basophils % 0.1 %; Hematocrit 32.1 % (37-53); Lymphocytes % 7.1 %; Mean Corpuscular Hemoglobin 27.6 pg (27-33); Mean Corpuscular Volume 83.6 fl (82-101); Mean Platelet Volume 8.6 fL (7.4-10.4); Monocytes # 0.3 10^3/uL (0.2-0.9); Monocytes % 2.3 %; Neutrophils # 13.27 10^3/uL (1.8-7.7); Nucleated Red Blood Cells % 0 %; Platelet Count 321 10^3/cmm (157-399); Red Blood Count 3.84 10^6/uL (3.85-5.65); Red Cell Distribution Width 13.7 % (12.1-15.1); White Blood Count 14.73 10^3/uL (3.29-11.43)
[2024-03-26 04:47] LABS: Alanine Aminotransferase 38 U/L (0-41); Albumin Level 2.9 g/dL (3.5-5.2); Alkaline Phosphatase 82 U/L (40-130); Anion Gap 14.1 (5-19); Aspartate Amino Transferase 52 U/L (0-40); Blood Urea Nitrogen 26 mg/dL (8-23); Calcium 8.6 mg/dL (8.5-10.5); Carbon Dioxide 21 mmol/L (22-29); Chloride 106 mmol/L (98-107); Creatinine Clr Calc Pharmacy 74.5994; Globulin 3.5 g/dL (1.3-4.6); Glucose 150 mg/dL (65-115); Osmolality Calculated 292 mOsm/kg (285-295); Potassium 4.1 mmol/L (3.5-5.1); Sodium 137 mmol/L (136-145); Total Bilirubin 0.3 mg/dL (0.15-1.2); Total Protein 6.4 g/dL (6.6-8.7); Vancomycin Trough 13.7 ug/mL (10-15)
[2024-03-26] MEDS: vancomycin 1,000 MG in sodium chloride 0.9% 250 ML 250 MG IV (05:31)
[2024-03-26] MEDS: meropenem 1,000 MG in sodium chloride 0.9% (plus) 50 ML 100 MG IV ×3 (05:31→21:22)
[2024-03-26] MEDS: levothyroxine 200 mcg Tablet PO (05:31)
[2024-03-26] MEDS: heparin 5,000 unit/mL INJ 1 mL 5000 UNIT SUBCUT ×2 (05:31→17:10)
[2024-03-26 07:05] LABS: Glucose Point of Care 146 mg/dL (70-110)
[2024-03-26] MEDS: budesonide 0.5 mg/2 mL Neb INHALATION ×2 (07:25→20:54)
--- NOTE | 2024-03-26 08:00 | XR_ITS ---
WS: [email or web address] Exam: XR chest 1V portable [id number] Date/Time of Exam: 03/26/2024 7:44 AM Reason For Exam: pna Comparison 03/24/2024. Infiltrates in the mid and lower lung zones noted bilaterally. Infiltrates on the RIGHT show some imp rovement but are unchanged on the LEFT. The lungs are fully inflated. No pleural effusions. Cardiac e nlargement unchanged. The mediastinum is normal in contour. Bony structures are intact. XR/XR chest 1V portable [id number] IMPRESSION: 1. Bilateral pulmonary infiltrates. Infiltrates on the RIGHT show some improvem ent but the chest is otherwise unchanged.
[2024-03-26] MEDS: citalopram 20 mg Tablet PO (08:12)
[2024-03-26] MEDS: methylPREDNISolone sod succ 40 mg/mL INJ IVP ×2 (08:12→17:10)
[2024-03-26] MEDS: gabapentin 300 mg Capsule PO ×3 (08:12→21:22)
[2024-03-26] MEDS: azithromycin 250 mg Tablet 500 MG PO (08:12)
[2024-03-26] MEDS: amlodipine 10 mg Tablet PO (08:13)
[2024-03-26] MEDS: buPROPion SR (12 HR) 100 mg Tablet 200 MG PO ×2 (08:13→17:13)
[2024-03-26] MEDS: tamsulosin 0.4 mg Capsule 0.400000000000000022 MG PO (08:13)
[2024-03-26] MEDS: insulin lispro 100 unit/1 mL SUBCUT ×4 (08:13→21:22)
[2024-03-26] MEDS: aspirin 81 mg EC Tablet PO (08:13)
--- NOTE | 2024-03-26 11:11 | XR_ITS ---
WS: [email or web address] Exam: XR femur LT min 2V* [id number] Date/Time of Exam: 03/26/2024 11:11 AM Reason For Exam: H/o fracture Compared to C-arm images dated 11/22/2017. There is a healed fracture of the lower femoral metadiaphysis with plate and screw fixation. No sign of hardware failure. No acute fracture is identified. XR/XR femur LT min 2V* [id number] IMPRESSION: 1. Healed fracture of the lower humerus with plate and screw fixation. No acute fracture or hardware complication noted.
--- NOTE | 2024-03-26 11:11 | XR_ITS ---
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 No acute fracture seen. There is effusion in the suprapatellar bursa . There are likely loose joint bodies. Spurring of the posterior patella. XR/XR knee RT 3V* [id number] IMPRESSION: 1. 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 2. No fracture.
[2024-03-26 12:02] LABS: Glucose Point of Care 195 mg/dL (70-110)
[2024-03-26 12:38] LABS: Methicillin-Resist S.aureu PCR NOT DETECTED (NOT DETECTED)
--- NOTE | 2024-03-26 13:13 | P.PN_ITS ---
Subjective 2 Subjective: No acute events overnight. Patient denies any nausea vomiting, headache. Desaturating on minimal ambulation down to mid 80s. Otherwise saturating 90 to 92% on 4 L of oxygen supplementation. Has remained hemodynamically stable. States he is feeling better. Vitals/I&O/Wt Last Vital Signs Temp 98.1 F 03/26/24 08:00 Pulse 60 03/26/24 08:00 Resp 16 03/26/24 08:00 BP 117/51 03/26/24 08:00 Pulse Ox 91 03/26/24 08:00 O2 Del Method Nasal Cannula 03/26/24 08:00 O2 Flow Rate 4 03/25/24 20:00 FiO2 35 03/26/24 07:29 03/25/24 03/26/24 03/26/24 22:59 06:59 14:59 Intake Total 1901.25 / 2801.25 540 / 3341.25 360 / 360 Output Total 1150 / 1150 1400 / 2550 Balance 751.25 / 1651.25 -860 / 791.25 360 / 360 Weight last 48 hrs Weight 81.647 kg Weight 82.327 kg Weight 81.647 kg Physical Exam 2 Narrative: General: No acute distress, AO x3, on nasal canula HEENT: PERRLA, pupils bilaterally equal and reactive Chest: Bilateral normal vesicular breath sounds all over lung almaguer, bilateral crackles with occasional rhonchi both lung almaguer and midline lower zone CVS: S1-S2 regular, no murmurs, tachycardia, no gallops, no rubs Abdomen: Soft, nontender, no organomegaly, bowel sounds present Neuro: No focal deficits, no facial deformity, AO x3, power 5/5 in all limbs Resp: EFFORT & INSPECTION: Yes respiratory distress AUSCULTATION: crackles and rhonchi Urinary Catheter Management: Obrien: Cath Placed During This Visit: yes Reason for Continuing Indwelling Catheter: Other Urinary Catheter Date of Insertion: 03/24/24 Urinary Catheter Time of Insertion: 05:45 Data 03/26/24 04:15 03/26/24 04:15 Micro: Microbiology 03/24/24 19:20 Urine Culture - Preliminary Urine,Clean Catch 03/24/24 12:08 Blood Culture - Preliminary Blood NEGATIVE TO DATE 03/24/24 12:04 Blood Culture - Preliminary Blood NEGATIVE TO DATE A&P Assessment and plan (1) Acute hypoxemic respiratory failure: Most likely in setting of bilateral pneumonia along with baseline severe pulmonary hypertension as per echocardiogram. Appreciate CTA negative for pulmonary embolism Oxygen supplementation keeping saturation over 90%. Patient between nasal cannula and BiPAP as needed. Out of bed to chair. Aggressive pulmonary toilet with I-S and Acapella. Pulmicort twice daily, DuoNebs every 6 hour. For now continue with Solu-Medrol 40 mg twice daily. Received 20 mg of IV Lasix yesterday. BUN slightly trending up today. Hold off any further IV fluids or Lasix today. (2) Community acquired pneumonia: Sputum culture pending, MRSA swab pending, Respiratory viral panel, urine Legionella, bacterial antigen negative. Continue with meropenem. Patient is allergic to penicillin. MRSA swab negative. Discontinue vancomycin. Continue azithromycin to finish a 3-day course. (3) Sepsis: Resolving. Present on admission. SIRS: Tachycardic, leukocytosis Source: Pneumonia End organ damage: Acute respiratory failure Lactic acid within normal limits Patient did receive full 30 mL/kg BW. Start on normal saline 75 cc/h for that. Monitor blood pressures. Keep mean artery pressure 65 mmHg. (4) Type 2 diabetes mellitus: Diabetes rule out. A1c 5.8. Insulin sliding scale as patient is on high-dose steroids. (5) Hypertension: Goal blood pressure less than 140/90 mmHg. Takes losartan 12.5 mg, amlodipine 10 mg daily at home. For now we will continue to hold off on losartan. Continue with home dose of amlodipine. Uptitrate as per goal blood pressures. Echocardiogram shows EF 55 to 60%, grade 1 diastolic dysfunction, moderate TR, RVSP of 60 mmHg with severe pulmonary hypertension, mild to moderate AI. (6) Severe pulmonary hypertension: Plan Continue chronic home medications including levothyroxine, Celexa, atorvastatin, baby aspirin. CODE STATUS: Discussed in detail with the patient. Full code Started on clear liquid diet. If tolerating well will transition to regular diet by night. Protonix OPD prophylaxis Heparin 5000 every 12 hourly for DVT prophylaxis Physical therapy. Out of bed to chair. Patient states he is usually bedbound as prescribed by an orthopedic surgeon on 7 years ago after femur fracture ORIF. He states he usually transitions from bed to chair and tries to be nonweightbearing. X-ray femur left leg, x-ray right knee. Encourage patient to be out of bed to chair and ambulate as with physical therapy. Patient is agreeable. Attestations 2 Medical Necessity Statement*: Requires further hospitalization for management of hypoxic respiratory failure in setting of bilateral pneumonia, severe pulmonary hypertension Diagnoses Acute hypoxemic respiratory failure J96.01 Community acquired pneumonia J18.9 Sepsis A41.9 Type 2 diabetes mellitus E11.9 Hypertension I10 Severe pulmonary hypertension I27.20
[2024-03-26] MEDS: pantoprazole 40 mg SDV IVP (17:10)
[2024-03-26] MEDS: atorvastatin 40 mg Tablet 20 MG PO (17:10)
[2024-03-26 17:15] LABS: Glucose Point of Care 192 mg/dL (70-110)
[2024-03-26 20:59] LABS: Glucose Point of Care 189 mg/dL (70-110)
[2024-03-27] VITALS (15 sets, daily range): BP systolic 112–125; BP diastolic 46–67; PULSE 64–95; RESP 16–22; TEMP 36.4–36.9; O2SAT 88–93
[2024-03-27] MEDS: ipratropium-albuterol 3 mL Neb INHALATION ×4 (01:48→20:30)
[2024-03-27] MEDS: meropenem 1,000 MG in sodium chloride 0.9% (plus) 50 ML 100 MG IV ×3 (05:29→21:59)
[2024-03-27] MEDS: heparin 5,000 unit/mL INJ 1 mL 5000 UNIT SUBCUT ×2 (05:29→17:23)
[2024-03-27] MEDS: levothyroxine 200 mcg Tablet PO (05:29)
[2024-03-27 05:46] LABS: Basophils % 0.1 %; Hematocrit 31.7 % (37-53); Lymphocytes # 0.9 10^3/uL (0.8-4.8); Lymphocytes % 7.6 %; Mean Corpuscular HGB Conc 33.4 g/dL (30-55); Mean Corpuscular Hemoglobin 27.5 pg (27-33); Mean Corpuscular Volume 82.3 fl (82-101); Mean Platelet Volume 8.9 fL (7.4-10.4); Monocytes # 0.4 10^3/uL (0.2-0.9); Monocytes % 2.8 %; Neutrophils % 88.9 %; Nucleated Red Blood Cells % 0 %; Platelet Count 334 10^3/cmm (157-399); Red Blood Count 3.85 10^6/uL (3.85-5.65); Red Cell Distribution Width 13.6 % (12.1-15.1); White Blood Count 12.38 10^3/uL (3.29-11.43)
[2024-03-27 06:09] LABS: Alanine Aminotransferase 49 U/L (0-41); Albumin Level 2.9 g/dL (3.5-5.2); Alkaline Phosphatase 81 U/L (40-130); Anion Gap 12.2 (5-19); Aspartate Amino Transferase 47 U/L (0-40); Blood Urea Nitrogen 32 mg/dL (8-23); Calcium 8.6 mg/dL (8.5-10.5); Carbon Dioxide 22 mmol/L (22-29); Chloride 104 mmol/L (98-107); Creatinine Clr Calc Pharmacy 75.8011; Globulin 3.4 g/dL (1.3-4.6); Glucose 162 mg/dL (65-115); Osmolality Calculated 288 mOsm/kg (285-295); Potassium 4.2 mmol/L (3.5-5.1); Sodium 134 mmol/L (136-145); Total Bilirubin 0.3 mg/dL (0.15-1.2); Total Protein 6.3 g/dL (6.6-8.7)
[2024-03-27 06:33] LABS: Glucose Point of Care 152 mg/dL (70-110)
[2024-03-27] MEDS: buPROPion SR (12 HR) 100 mg Tablet 200 MG PO ×2 (08:38→17:23)
[2024-03-27] MEDS: amlodipine 10 mg Tablet PO (08:39)
[2024-03-27] MEDS: aspirin 81 mg EC Tablet PO (08:39)
[2024-03-27] MEDS: citalopram 20 mg Tablet PO (08:39)
[2024-03-27] MEDS: tamsulosin 0.4 mg Capsule 0.400000000000000022 MG PO (08:39)
[2024-03-27] MEDS: methylPREDNISolone sod succ 40 mg/mL INJ IVP (08:39)
[2024-03-27] MEDS: gabapentin 300 mg Capsule PO ×3 (08:39→20:43)
[2024-03-27] MEDS: insulin lispro 100 unit/1 mL SUBCUT ×4 (08:40→21:59)
[2024-03-27] MEDS: azithromycin 250 mg Tablet 500 MG PO (08:48)
[2024-03-27] MEDS: budesonide 0.5 mg/2 mL Neb INHALATION ×2 (08:51→20:30)
[2024-03-27 11:18] LABS: Glucose Point of Care 156 mg/dL (70-110)
[2024-03-27] MEDS: FUROsemide 20 mg Tablet PO (12:25)
--- NOTE | 2024-03-27 14:14 | P.PN_ITS ---
Subjective 2 Subjective: No acute events overnight. Patient denies any nausea, vomiting, headache. Has remained on 4 to 5 days oxygen supplementation. Denies any nausea, ting, headache. States he is feeling better. Vitals/I&O/Wt Last Vital Signs Temp 97.8 F 03/27/24 12:29 Pulse 92 03/27/24 13:00 Resp 20 H 03/27/24 13:00 BP 125/46 03/27/24 12:29 Pulse Ox 88 L 03/27/24 13:00 O2 Del Method Nasal Cannula 03/27/24 13:00 O2 Flow Rate 4 03/27/24 13:00 FiO2 35 03/27/24 01:51 03/26/24 03/27/24 03/27/24 22:59 06:59 14:59 Intake Total 530 / 1420 290 / 1710 1360 / 1360 Output Total 300 / 825 200 / 1025 800 / 800 Balance 230 / 595 90 / 685 560 / 560 Weight last 48 hrs Weight 85.417 kg Weight 85.417 kg Weight 81.647 kg Physical Exam 2 Narrative: General: No acute distress, AO x3, on nasal canula HEENT: PERRLA, pupils bilaterally equal and reactive Chest: Bilateral normal vesicular breath sounds all over lung almaguer, bilateral crackles with occasional rhonchi both lung almaguer and midline lower zone CVS: S1-S2 regular, no murmurs, tachycardia, no gallops, no rubs Abdomen: Soft, nontender, no organomegaly, bowel sounds present Neuro: No focal deficits, no facial deformity, AO x3, power 5/5 in all limbs Resp: EFFORT & INSPECTION: Yes respiratory distress AUSCULTATION: crackles and rhonchi Urinary Catheter Management: Obrien: Cath Placed During This Visit: yes Reason for Continuing Indwelling Catheter: Accurate Measurement of Urinary Output in Critically Ill Patients Urinary Catheter Date of Insertion: 03/24/24 Urinary Catheter Time of Insertion: 05:45 Data 03/27/24 05:25 03/27/24 05:25 Micro: Microbiology 03/24/24 19:20 Urine Culture - Final Urine,Clean Catch A&P Assessment and plan (1) Acute hypoxemic respiratory failure: Most likely in setting of bilateral pneumonia along with baseline severe pulmonary hypertension as per echocardiogram. Appreciate CTA negative for pulmonary embolism Oxygen supplementation keeping saturation over 90%. Patient between nasal cannula and BiPAP as needed. Out of bed to chair. Aggressive pulmonary toilet with I-S and Acapella. Pulmicort twice daily, DuoNebs every 6 hour. For now continue with Solu-Medrol 40 mg twice daily. Received 20 mg of IV Lasix yesterday. BUN slightly trending up today. Hold off any further IV fluids or Lasix today. (2) Community acquired pneumonia: Sputum culture pending, MRSA swab pending, Respiratory viral panel, urine Legionella, bacterial antigen negative. Continue with meropenem. Patient is allergic to penicillin. MRSA swab negative. Discontinue vancomycin. Continue azithromycin to finish a 3-day course. (3) Sepsis: Resolving. Present on admission. SIRS: Tachycardic, leukocytosis Source: Pneumonia End organ damage: Acute respiratory failure Lactic acid within normal limits Patient did receive full 30 mL/kg BW. Start on normal saline 75 cc/h for that. Monitor blood pressures. Keep mean artery pressure 65 mmHg. (4) Type 2 diabetes mellitus: Diabetes rule out. A1c 5.8. Insulin sliding scale as patient is on high-dose steroids. (5) Hypertension: Goal blood pressure less than 140/90 mmHg. Takes losartan 12.5 mg, amlodipine 10 mg daily at home. For now we will continue to hold off on losartan. Continue with home dose of amlodipine. Uptitrate as per goal blood pressures. Echocardiogram shows EF 55 to 60%, grade 1 diastolic dysfunction, moderate TR, RVSP of 60 mmHg with severe pulmonary hypertension, mild to moderate AI. (6) Severe pulmonary hypertension: Plan Continue chronic home medications including levothyroxine, Celexa, atorvastatin, baby aspirin. CODE STATUS: Discussed in detail with the patient. Full code Started on clear liquid diet. If tolerating well will transition to regular diet by night. Protonix OPD prophylaxis Heparin 5000 every 12 hourly for DVT prophylaxis Physical therapy. Out of bed to chair. Patient states he is usually bedbound as prescribed by an orthopedic surgeon on 7 years ago after femur fracture ORIF. He states he usually transitions from bed to chair and tries to be nonweightbearing. X-ray femur left leg, x-ray right knee. Encourage patient to be out of bed to chair and ambulate as with physical therapy. Patient is agreeable. Plan for the day: Sputum culture still awaited. Continue with Pulmicort twice daily, DuoNeb every 6 hour. Wean Solu-Medrol to 20 mg twice daily. Continue with IV meropenem to finish a 7-day course. Last dose on 03/31. Continue with oral azithromycin to finish a course of antibiotics till 03/28. Repeat Lasix 20 mg one-time. Strict input charting. If needed will repeat Lasix in the next 24 hours. Oxygen supplementation keeping saturation over 88%. Patient still having episodes of desaturation on minimal ambulation. Continue with aggressive pulmonary toilet with I-S and Acapella. Out of bed to chair. Patient is agreeable. Patient states he has not walked for last 7 years. He is agreeable for physical therapy for now. He is agreeable to at least sit in the chair for as long as possible. Appreciate left femur and right knee x-rays. Attestations 2 Medical Necessity Statement*: Requires further hospitalization for management of respiratory failure in setting of bilateral pneumonia Diagnoses Acute hypoxemic respiratory failure J96.01 Community acquired pneumonia J18.9 Sepsis A41.9 Type 2 diabetes mellitus E11.9 Hypertension I10 Severe pulmonary hypertension I27.20
[2024-03-27 16:50] LABS: Glucose Point of Care 167 mg/dL (70-110)
[2024-03-27] MEDS: pantoprazole 40 mg SDV IVP (17:23)
[2024-03-27] MEDS: atorvastatin 40 mg Tablet 20 MG PO (17:24)
[2024-03-27] MEDS: methylPREDNISolone sod succ 40 mg/mL INJ 20 MG IVP (17:24)
[2024-03-27 20:57] LABS: Glucose Point of Care 246 mg/dL (70-110)
[2024-03-28] VITALS (16 sets, daily range): BP systolic 110–121; BP diastolic 47–71; PULSE 64–85; RESP 14–20; TEMP 36.4–37.2; O2SAT 89–96
[2024-03-28] MEDS: ipratropium-albuterol 3 mL Neb INHALATION ×4 (02:15→20:50)
[2024-03-28] MEDS: meropenem 1,000 MG in sodium chloride 0.9% (plus) 50 ML 100 MG IV ×3 (05:25→23:03)
[2024-03-28] MEDS: heparin 5,000 unit/mL INJ 1 mL 5000 UNIT SUBCUT ×2 (05:26→17:31)
[2024-03-28] MEDS: levothyroxine 200 mcg Tablet PO (05:26)
[2024-03-28 05:39] LABS: Basophils % 0.1 %; Hematocrit 36.1 % (37-53); Lymphocytes # 1.6 10^3/uL (0.8-4.8); Lymphocytes % 12.7 %; Mean Corpuscular HGB Conc 31.9 g/dL (30-55); Mean Platelet Volume 8.9 fL (7.4-10.4); Monocytes # 0.8 10^3/uL (0.2-0.9); Monocytes % 5.9 %; Neutrophils # 10.45 10^3/uL (1.8-7.7); Neutrophils % 80.7 %; Nucleated Red Blood Cells % 0 %; Platelet Count 305 10^3/cmm (157-399); Red Cell Distribution Width 13.6 % (12.1-15.1); White Blood Count 12.95 10^3/uL (3.29-11.43)
[2024-03-28 06:01] LABS: Alanine Aminotransferase 57 U/L (0-41); Albumin Level 2.8 g/dL (3.5-5.2); Alkaline Phosphatase 85 U/L (40-130); Anion Gap 13.3 (5-19); Aspartate Amino Transferase 48 U/L (0-40); Blood Urea Nitrogen 27 mg/dL (8-23); Calcium 8.6 mg/dL (8.5-10.5); Carbon Dioxide 24 mmol/L (22-29); Chloride 102 mmol/L (98-107); Creatinine Clr Calc Pharmacy 76.1693; Globulin 2.9 g/dL (1.3-4.6); Glucose 110 mg/dL (65-115); Osmolality Calculated 286 mOsm/kg (285-295); Potassium 4.3 mmol/L (3.5-5.1); Sodium 135 mmol/L (136-145); Total Bilirubin 0.4 mg/dL (0.15-1.2); Total Protein 5.7 g/dL (6.6-8.7)
[2024-03-28 06:10] LABS: Glucose Point of Care 117 mg/dL (70-110)
[2024-03-28] MEDS: budesonide 0.5 mg/2 mL Neb INHALATION ×2 (08:49→20:49)
--- NOTE | 2024-03-28 09:27 | PC.SOCIAL ---
IMM Update Pg. 2 of IMM updated and reviewed with patient, who verbalized understanding. Copy provided.
[2024-03-28] MEDS: methylPREDNISolone sod succ 40 mg/mL INJ 20 MG IVP ×2 (09:31→17:30)
[2024-03-28] MEDS: gabapentin 300 mg Capsule PO ×3 (09:31→20:41)
[2024-03-28] MEDS: azithromycin 250 mg Tablet 500 MG PO (09:31)
[2024-03-28] MEDS: buPROPion SR (12 HR) 100 mg Tablet 200 MG PO ×2 (09:31→17:31)
[2024-03-28] MEDS: aspirin 81 mg EC Tablet PO (09:31)
[2024-03-28] MEDS: tamsulosin 0.4 mg Capsule 0.400000000000000022 MG PO (09:32)
[2024-03-28] MEDS: citalopram 20 mg Tablet PO (09:32)
[2024-03-28] MEDS: amlodipine 10 mg Tablet PO (09:32)
--- NOTE | 2024-03-28 09:38 | PC.RESP ---
nursing called rt to let know pt had been coughing and desatted down into the 70's on 6L nc. pt was 83-84% when rt arrived. placed pt on oxymask at this time on 10L. spo2 increased to 88-89%. will continue to monitor pt and wean o2 as tolerated. pt is in no distress at this time
--- NOTE | 2024-03-28 10:26 | XR_ITS ---
WS: [id number] Exam: XR chest 1V portable [id number] Date/Time of Exam: 03/28/2024 10:45 AM Reason For Exam: Hypoxia Compared to the last exam 03/26/2024. Bilateral pulmonary infiltrates are unchanged. Mild cardiac enlargement unchanged. The lungs are full y inflated. No pleural effusions. The mediastinum is normal in contour. Bony structures are intact. XR/XR chest 1V portable [id number] IMPRESSION: 1. Bilateral pulmonary infiltrates showing no change.
[2024-03-28 10:55] LABS: NT Pro B Type Natriuretic Pept 1546 pg/mL (0-450)
[2024-03-28 11:21] LABS: Glucose Point of Care 132 mg/dL (70-110)
--- NOTE | 2024-03-28 14:31 | P.PN_ITS ---
Subjective 2 Subjective: No events overnight. Patient has remained hemodynamically stable and afebrile. Today morning patient had a coughing spell after which she desaturated down to 70s and he was put on 2 6 L of nasal cannula. Later he was transition over to high flow nasal cannula to decrease work of breathing. Otherwise patient states he is feeling better. Denies any nausea, vomiting, headache. Vitals/I&O/Wt Last Vital Signs Temp 97.6 F 03/28/24 12:00 Pulse 68 03/28/24 14:03 Resp 18 03/28/24 13:56 BP 118/60 03/28/24 12:00 Pulse Ox 96 03/28/24 14:03 O2 Del Method High Flow Nasal Cannula 03/28/24 13:56 O2 Flow Rate 9 03/28/24 14:03 FiO2 35 03/27/24 01:51 03/27/24 03/28/24 03/28/24 22:59 06:59 14:59 Intake Total 580 / 1940 770 / 2710 360 / 360 Output Total 1650 / 2450 2400 / 4850 1550 / 1550 Balance -1070 / -510 -1630 / -2140 -1190 / -1190 Weight last 48 hrs Weight 86.364 kg Weight 86.364 kg Weight 85.417 kg Weight 85.417 kg Physical Exam 2 Narrative: General: No acute distress, AO x3, on nasal canula HEENT: PERRLA, pupils bilaterally equal and reactive Chest: Bilateral normal vesicular breath sounds all over lung almaguer, bilateral crackles with occasional rhonchi both lung almaguer and midline lower zone CVS: S1-S2 regular, no murmurs, tachycardia, no gallops, no rubs Abdomen: Soft, nontender, no organomegaly, bowel sounds present Neuro: No focal deficits, no facial deformity, AO x3, power 5/5 in all limbs Resp: EFFORT & INSPECTION: Yes respiratory distress AUSCULTATION: crackles and rhonchi Urinary Catheter Management: Obrien: Cath Placed During This Visit: yes Reason for Continuing Indwelling Catheter: Other Urinary Catheter Date of Insertion: 03/24/24 Urinary Catheter Time of Insertion: 05:45 Data 03/28/24 05:10 03/28/24 05:10 Micro: Microbiology 03/24/24 19:20 Urine Culture - Final Urine,Clean Catch A&P Assessment and plan (1) Acute hypoxemic respiratory failure: Most likely in setting of bilateral pneumonia along with baseline severe pulmonary hypertension as per echocardiogram. Appreciate CTA negative for pulmonary embolism Oxygen supplementation keeping saturation over 90%. Switch over to high flow nasal cannula decreased to work of breathing. BiPAP nightly. Out of bed to chair. Aggressive pulmonary toilet with I-S and Acapella. Will plan to add chest vest twice daily. Pulmicort twice daily, DuoNebs every 6 hour. Solu-Medrol to be continued at 20 mg IV twice daily. Echocardiogram showing moderate to severe pulmonary hypertension. EF normal. Received oral Lasix yesterday. Around 5 L of urine output overall. Hold off on any further Lasix for now. Repeat chest x-ray, proBNP. Will plan for low-dose Lasix later in the day if urine output tapers down. Because of robust urine output we will plan to repeat BMP in afternoon. Continue with Obrien catheterization. (2) Community acquired pneumonia: Sputum culture pending, MRSA swab negative. Respiratory viral panel, urine Legionella, bacterial antigen negative. Continue with meropenem to finish a 7-day course on 03/31. Last day of azithromycin on 03/28. MRSA negative so vancomycin discontinued. (3) Sepsis: Resolving. Present on admission. SIRS: Tachycardic, leukocytosis Source: Pneumonia End organ damage: Acute respiratory failure Lactic acid within normal limits Patient did receive full 30 mL/kg BW. Start on normal saline 75 cc/h for that. Monitor blood pressures. Keep mean artery pressure 65 mmHg. (4) Type 2 diabetes mellitus: Diabetes rule out. A1c 5.8. Insulin sliding scale as patient is on high-dose steroids. (5) Hypertension: Goal blood pressure less than 140/90 mmHg. Takes losartan 12.5 mg, amlodipine 10 mg daily at home. For now we will continue to hold off on losartan. Continue with home dose of amlodipine. Uptitrate as per goal blood pressures. Echocardiogram shows EF 55 to 60%, grade 1 diastolic dysfunction, moderate TR, RVSP of 60 mmHg with severe pulmonary hypertension, mild to moderate AI. (6) Severe pulmonary hypertension: (7) Physical deconditioning: Plan Continue chronic home medications including levothyroxine, Celexa, atorvastatin, baby aspirin. CODE STATUS: Discussed in detail with the patient. Full code Started on clear liquid diet. If tolerating well will transition to regular diet by night. Protonix OPD prophylaxis Heparin 5000 every 12 hourly for DVT prophylaxis Physical therapy. Out of bed to chair. Patient states he is usually bedbound as prescribed by an orthopedic surgeon on 7 years ago after femur fracture ORIF. He states he usually transitions from bed to chair and tries to be nonweightbearing. X-ray femur left leg, x-ray right knee. Encourage patient to be out of bed to chair and ambulate as with physical therapy. Patient is agreeable. Discharge plan: Plan to discharge home with home health with nursing for possible pulmonary rehab. If patient does not improve within next 48 hours or continues to have episodes of desaturation patient might need transition to LTAC as patient would require extensive pulmonary and physical rehabilitation while monitoring his oxygen saturations. Attestations 2 Medical Necessity Statement*: Requires further hospitalization for management of hypoxic respiratory failure in setting of bilateral pneumonia, physical deconditioning, severe pulmonary hypertension Diagnoses Acute hypoxemic respiratory failure J96.01 Community acquired pneumonia J18.9 Sepsis A41.9 Type 2 diabetes mellitus E11.9 Hypertension I10 Severe pulmonary hypertension I27.20 Physical deconditioning R53.81
[2024-03-28 15:49] LABS: Anion Gap 14.4 (5-19); Blood Urea Nitrogen 28 mg/dL (8-23); Calcium 8.6 mg/dL (8.5-10.5); Carbon Dioxide 23 mmol/L (22-29); Chloride 97 mmol/L (98-107); Creatinine Clr Calc Pharmacy 76.1693; Glucose 192 mg/dL (65-115); Lactate Dehydrogenase 202 U/L (135-225); Osmolality Calculated 281 mOsm/kg (285-295); Potassium 4.4 mmol/L (3.5-5.1); Sodium 130 mmol/L (136-145)
[2024-03-28 15:51] LABS: D Dimer 3.66 ug/mLFEU (0-0.59)
[2024-03-28] MEDS: fluconazole 100 mg Tablet PO (16:00)
[2024-03-28 17:20] LABS: Glucose Point of Care 160 mg/dL (70-110)
[2024-03-28] MEDS: pantoprazole 40 mg SDV IVP (17:30)
[2024-03-28] MEDS: nystatin 100,000 unit/mL UDC 5 mL 100000 UNIT PO ×2 (17:30→20:39)
[2024-03-28] MEDS: insulin lispro 100 unit/1 mL SUBCUT ×2 (17:31→20:56)
[2024-03-28] MEDS: atorvastatin 40 mg Tablet 20 MG PO (17:31)
[2024-03-28 20:54] LABS: Glucose Point of Care 204 mg/dL (70-110)
[2024-03-29] VITALS (16 sets, daily range): BP systolic 114–119; BP diastolic 48–63; PULSE 5–77; RESP 16–30; TEMP 36.4–37.1; O2SAT 89–95
[2024-03-29] MEDS: ipratropium-albuterol 3 mL Neb INHALATION ×4 (01:29→20:36)
[2024-03-29] MEDS: heparin 5,000 unit/mL INJ 1 mL 5000 UNIT SUBCUT ×2 (05:29→17:10)
[2024-03-29] MEDS: levothyroxine 200 mcg Tablet PO (05:29)
[2024-03-29] MEDS: meropenem 1,000 MG in sodium chloride 0.9% (plus) 50 ML 100 MG IV ×3 (05:29→21:17)
[2024-03-29 06:25] LABS: Glucose Point of Care 153 mg/dL (70-110)
[2024-03-29 06:58] LABS: Basophils % 0.1 %; Lymphocytes # 1.2 10^3/uL (0.8-4.8); Lymphocytes % 10.8 %; Mean Corpuscular HGB Conc 33.3 g/dL (30-55); Mean Corpuscular Hemoglobin 27.5 pg (27-33); Mean Corpuscular Volume 82.4 fl (82-101); Mean Platelet Volume 9.2 fL (7.4-10.4); Monocytes # 0.5 10^3/uL (0.2-0.9); Neutrophils # 9.46 10^3/uL (1.8-7.7); Neutrophils % 84.7 %; Nucleated Red Blood Cells % 0 %; Platelet Count 350 10^3/cmm (157-399); Red Blood Count 4.37 10^6/uL (3.85-5.65); Red Cell Distribution Width 13.3 % (12.1-15.1); White Blood Count 11.18 10^3/uL (3.29-11.43)
[2024-03-29 07:04] LABS: Alanine Aminotransferase 63 U/L (0-41); Alkaline Phosphatase 97 U/L (40-130); Anion Gap 13.4 (5-19); Aspartate Amino Transferase 43 U/L (0-40); Blood Urea Nitrogen 28 mg/dL (8-23); Calcium 8.4 mg/dL (8.5-10.5); Carbon Dioxide 26 mmol/L (22-29); Chloride 99 mmol/L (98-107); Creatinine Clr Calc Pharmacy 85.0159; Globulin 3.6 g/dL (1.3-4.6); Glucose 144 mg/dL (65-115); Osmolality Calculated 286 mOsm/kg (285-295); Potassium 4.4 mmol/L (3.5-5.1); Sodium 134 mmol/L (136-145); Total Bilirubin 0.4 mg/dL (0.15-1.2); Total Protein 6.6 g/dL (6.6-8.7)
[2024-03-29] MEDS: insulin lispro 100 unit/1 mL SUBCUT ×4 (08:04→21:28)
[2024-03-29] MEDS: nystatin 100,000 unit/mL UDC 5 mL 100000 UNIT PO ×4 (08:04→21:17)
[2024-03-29] MEDS: methylPREDNISolone sod succ 40 mg/mL INJ 20 MG IVP ×2 (08:04→17:10)
[2024-03-29] MEDS: citalopram 20 mg Tablet PO (08:04)
[2024-03-29] MEDS: gabapentin 300 mg Capsule PO ×3 (08:04→21:17)
[2024-03-29] MEDS: fluconazole 100 mg Tablet PO (08:04)
[2024-03-29] MEDS: buPROPion SR (12 HR) 100 mg Tablet 200 MG PO ×2 (08:04→17:10)
[2024-03-29] MEDS: tamsulosin 0.4 mg Capsule 0.400000000000000022 MG PO (08:04)
[2024-03-29] MEDS: aspirin 81 mg EC Tablet PO (08:04)
[2024-03-29] MEDS: amlodipine 10 mg Tablet PO (08:04)
[2024-03-29] MEDS: budesonide 0.5 mg/2 mL Neb INHALATION ×2 (08:15→20:36)
[2024-03-29] MEDS: acetylcysteine 200 mg/mL SDV 4 mL 100 MG INHALATION ×3 (08:17→20:36)
[2024-03-29 10:59] LABS: Glucose Point of Care 179 mg/dL (70-110)
--- NOTE | 2024-03-29 13:40 | P.PN_ITS ---
Subjective 2 Subjective: No events overnight. Patient has remained hemodynamically stable and afebrile. Today morning seen sitting up in the recliner. Having his food. He states he is feeling better. He is on 6 L of high flow nasal cannula saturating more than 92%. He was turned down to 5 L. Vitals/I&O/Wt Last Vital Signs Temp 98.7 F 03/29/24 11:37 Pulse 77 03/29/24 13:02 Resp 18 03/29/24 13:02 BP 114/58 03/29/24 11:37 Pulse Ox 93 03/29/24 13:02 O2 Del Method High Flow Nasal Cannula 03/29/24 13:02 O2 Flow Rate 5 03/29/24 13:02 FiO2 35 03/29/24 04:21 03/28/24 03/29/24 03/29/24 22:59 06:59 14:59 Intake Total 410 / 770 100 / 870 240 / 240 Output Total 600 / 2150 825 / 2975 Balance -190 / -1380 -725 / -2105 240 / 240 Weight last 48 hrs Weight 84.822 kg Weight 86.364 kg Weight 86.364 kg Physical Exam 2 Narrative: General: No acute distress, AO x3, on nasal canula HEENT: PERRLA, pupils bilaterally equal and reactive Chest: Bilateral normal vesicular breath sounds all over lung almaguer, bilateral crackles with occasional rhonchi both lung almaguer and midline lower zone CVS: S1-S2 regular, no murmurs, tachycardia, no gallops, no rubs Abdomen: Soft, nontender, no organomegaly, bowel sounds present Neuro: No focal deficits, no facial deformity, AO x3, power 5/5 in all limbs Resp: EFFORT & INSPECTION: Yes respiratory distress AUSCULTATION: crackles and rhonchi Urinary Catheter Management: Obrien: Cath Placed During This Visit: yes Reason for Continuing Indwelling Catheter: Other Urinary Catheter Date of Insertion: 03/24/24 Urinary Catheter Time of Insertion: 05:45 Data 03/29/24 05:50 03/29/24 05:50 Micro: Microbiology 03/24/24 12:08 Blood Culture - Final Blood NO GROWTH AFTER 5 DAYS 03/24/24 12:04 Blood Culture - Final Blood NO GROWTH AFTER 5 DAYS 03/27/24 13:20 Sputum Culture - Preliminary Sputum - Expectorated Sputum Yeast species A&P Assessment and plan (1) Acute hypoxemic respiratory failure: Most likely in setting of bilateral pneumonia along with baseline severe pulmonary hypertension as per echocardiogram. Appreciate CTA negative for pulmonary embolism Oxygen supplementation keeping saturation over 90%. Switch over to high flow nasal cannula decreased to work of breathing. BiPAP nightly. Out of bed to chair. Aggressive pulmonary toilet with I-S and Acapella. Will plan to add chest vest twice daily. Pulmicort twice daily, DuoNebs every 6 hour. Continue Solu-Medrol 20 mg twice daily for 1 more day. Will transition to oral prednisone in a.m. for taper. Patient continues to have good urine output. Hold off on further diuresis for now. Repeat BMP in afternoon. Sputum culture growing yeast. Continue with oral fluconazole to finish a 7-day course. Given slow improvement further workup including beta D glucan. LDH normal. Will continue to follow. Continue with aggressive pulmonary toilet. Continue with I-S and Acapella along with chest vest. Out of bed to chair. (2) Community acquired pneumonia: Sputum culture pending, MRSA swab negative. Respiratory viral panel, urine Legionella, bacterial antigen negative. Continue with meropenem to finish a 7-day course on 03/31. Last day of azithromycin on 03/28. MRSA negative so vancomycin discontinued. (3) Sepsis: Resolving. Present on admission. SIRS: Tachycardic, leukocytosis Source: Pneumonia End organ damage: Acute respiratory failure Lactic acid within normal limits Patient did receive full 30 mL/kg BW. Monitor blood pressures. Keep mean artery pressure 65 mmHg. (4) Type 2 diabetes mellitus: Diabetes rule out. A1c 5.8. Insulin sliding scale as patient is on high-dose steroids. (5) Hypertension: Goal blood pressure less than 140/90 mmHg. Takes losartan 12.5 mg, amlodipine 10 mg daily at home. For now we will continue to hold off on losartan. Continue with home dose of amlodipine. Uptitrate as per goal blood pressures. Echocardiogram shows EF 55 to 60%, grade 1 diastolic dysfunction, moderate TR, RVSP of 60 mmHg with severe pulmonary hypertension, mild to moderate AI. (6) Severe pulmonary hypertension: (7) Physical deconditioning: Plan Continue chronic home medications including levothyroxine, Celexa, atorvastatin, baby aspirin. CODE STATUS: Discussed in detail with the patient. Full code Started on clear liquid diet. If tolerating well will transition to regular diet by night. Protonix OPD prophylaxis Heparin 5000 every 12 hourly for DVT prophylaxis Physical therapy. Out of bed to chair. Patient states he is usually bedbound as prescribed by an orthopedic surgeon on 7 years ago after femur fracture ORIF. He states he usually transitions from bed to chair and tries to be nonweightbearing. X-ray femur left leg, x-ray right knee. Encourage patient to be out of bed to chair and ambulate as with physical therapy. Patient is agreeable. Discharge plan: Plan to discharge home with home health with nursing for possible pulmonary rehab. If patient does not improve within next 48 hours or continues to have episodes of desaturation patient might need transition to LTAC as patient would require extensive pulmonary and physical rehabilitation while monitoring his oxygen saturations. Attestations 2 Medical Necessity Statement*: Requires further hospitalization for management of hypoxic respiratory failure in setting of community-acquired bilateral pneumonia, severe pulmonary hypertension and physical deconditioning as patient remains on high oxygen requirements Diagnoses Acute hypoxemic respiratory failure J96.01 Community acquired pneumonia J18.9 Sepsis A41.9 Type 2 diabetes mellitus E11.9 Hypertension I10 Severe pulmonary hypertension I27.20 Physical deconditioning R53.81
[2024-03-29 16:52] LABS: Glucose Point of Care 179 mg/dL (70-110)
[2024-03-29] MEDS: pantoprazole 40 mg SDV IVP (17:10)
[2024-03-29] MEDS: atorvastatin 40 mg Tablet 20 MG PO (17:10)
[2024-03-29 21:19] LABS: Glucose Point of Care 200 mg/dL (70-110)
[2024-03-30] VITALS (15 sets, daily range): BP systolic 112–131; BP diastolic 50–77; PULSE 57–74; RESP 16–27; TEMP 36.4–37; O2SAT 87–93
[2024-03-30] MEDS: ipratropium-albuterol 3 mL Neb INHALATION ×4 (03:20→20:26)
[2024-03-30] MEDS: acetylcysteine 200 mg/mL SDV 4 mL 100 MG INHALATION ×2 (03:20→13:58)
[2024-03-30] MEDS: heparin 5,000 unit/mL INJ 1 mL 5000 UNIT SUBCUT ×2 (04:49→16:58)
[2024-03-30] MEDS: meropenem 1,000 MG in sodium chloride 0.9% (plus) 50 ML 100 MG IV ×3 (04:49→21:49)
[2024-03-30] MEDS: levothyroxine 200 mcg Tablet PO (04:49)
[2024-03-30 06:24] LABS: Glucose Point of Care 151 mg/dL (70-110)
[2024-03-30 06:42] LABS: Basophils % 0.1 %; Hematocrit 37.5 % (37-53); Lymphocytes # 1.4 10^3/uL (0.8-4.8); Lymphocytes % 10.9 %; Mean Corpuscular HGB Conc 33.3 g/dL (30-55); Mean Corpuscular Hemoglobin 27.3 pg (27-33); Mean Corpuscular Volume 81.9 fl (82-101); Mean Platelet Volume 8.9 fL (7.4-10.4); Monocytes # 0.7 10^3/uL (0.2-0.9); Monocytes % 5.3 %; Neutrophils # 10.76 10^3/uL (1.8-7.7); Neutrophils % 83.2 %; Nucleated Red Blood Cells % 0 %; Platelet Count 373 10^3/cmm (157-399); Red Blood Count 4.58 10^6/uL (3.85-5.65); Red Cell Distribution Width 13.3 % (12.1-15.1); White Blood Count 12.92 10^3/uL (3.29-11.43)
[2024-03-30 06:57] LABS: Alanine Aminotransferase 67 U/L (0-41); Albumin Level 2.9 g/dL (3.5-5.2); Alkaline Phosphatase 100 U/L (40-130); Anion Gap 13.8 (5-19); Aspartate Amino Transferase 42 U/L (0-40); Blood Urea Nitrogen 28 mg/dL (8-23); Calcium 8.7 mg/dL (8.5-10.5); Carbon Dioxide 26 mmol/L (22-29); Chloride 99 mmol/L (98-107); Creatinine Clr Calc Pharmacy 84.8173; Globulin 3.6 g/dL (1.3-4.6); Glucose 144 mg/dL (65-115); Osmolality Calculated 286 mOsm/kg (285-295); Potassium 4.8 mmol/L (3.5-5.1); Sodium 134 mmol/L (136-145); Total Bilirubin 0.4 mg/dL (0.15-1.2); Total Protein 6.5 g/dL (6.6-8.7)
[2024-03-30] MEDS: insulin lispro 100 unit/1 mL SUBCUT ×4 (08:02→21:47)
[2024-03-30] MEDS: gabapentin 300 mg Capsule PO ×3 (08:02→21:47)
[2024-03-30] MEDS: buPROPion SR (12 HR) 100 mg Tablet 200 MG PO ×2 (08:02→16:58)
[2024-03-30] MEDS: tamsulosin 0.4 mg Capsule 0.400000000000000022 MG PO (08:02)
[2024-03-30] MEDS: fluconazole 100 mg Tablet PO (08:02)
[2024-03-30] MEDS: amlodipine 10 mg Tablet PO (08:02)
[2024-03-30] MEDS: citalopram 20 mg Tablet PO (08:03)
[2024-03-30] MEDS: aspirin 81 mg EC Tablet PO (08:03)
[2024-03-30] MEDS: nystatin 100,000 unit/mL UDC 5 mL 100000 UNIT PO ×4 (08:08→21:47)
[2024-03-30] MEDS: methylPREDNISolone sod succ 40 mg/mL INJ 20 MG IVP ×2 (09:10→17:36)
[2024-03-30] MEDS: budesonide 0.5 mg/2 mL Neb INHALATION ×2 (09:14→20:26)
--- NOTE | 2024-03-30 10:31 | PC.NURSE ---
While pt was working with physical therapy and transferred from bed to chair, he had to be put back on bipap as he de-sat into the low 80's. Pt satting at 83% on bipap and began sweating. Pt put back on nasal cannula and turned O2 up to 15L. Pt asked to focus on breathing and RT was called. Pt safely transferred back to bed. Dr. Hathaway notified and this nurse as well as RT was asked to observe pt as this tends to happen upon exertion. Pt currently satting at 90% on 7L.
[2024-03-30 11:11] LABS: Glucose Point of Care 142 mg/dL (70-110)
--- NOTE | 2024-03-30 12:37 | P.PN_ITS ---
Subjective 2 Subjective: No acute events overnight. Patient has remained hemodynamically stable and afebrile. Was on 4 L of oxygen supplementation. Today morning desaturated after minimal ambulation and trying to get out of bed to bedside commode and required at least 15 to 20 minutes and a higher oxygen supplementation to recover. On examination he is on 6 L high flow nasal cannula saturating 92. Turned down to 4 L during examination. Patient otherwise denies any new complaints. Does complain of shortness of breath on minimal ambulation. Patient at baseline has been bedbound for last 7 years. Vitals/I&O/Wt Last Vital Signs Temp 97.9 F 03/30/24 11:14 Pulse 64 03/30/24 11:14 Resp 18 03/30/24 11:14 BP 121/57 03/30/24 11:14 Pulse Ox 92 03/30/24 11:14 O2 Del Method Nasal Cannula 03/30/24 11:14 O2 Flow Rate 4 03/30/24 09:14 FiO2 35 03/30/24 00:00 03/29/24 03/30/24 03/30/24 22:59 06:59 14:59 Intake Total 340 / 580 50 / 630 480 / 480 Output Total 1425 / 1425 Balance 340 / 580 -1375 / -795 480 / 480 Weight last 48 hrs Weight 84.368 kg Weight 84.822 kg Physical Exam 2 Narrative: General: No acute distress, AO x3, on nasal canula HEENT: PERRLA, pupils bilaterally equal and reactive Chest: Bilateral normal vesicular breath sounds all over lung almaguer, bilateral crackles with occasional rhonchi both lung almaguer and midline lower zone CVS: S1-S2 regular, no murmurs, tachycardia, no gallops, no rubs Abdomen: Soft, nontender, no organomegaly, bowel sounds present Neuro: No focal deficits, no facial deformity, AO x3, power 5/5 in all limbs Resp: EFFORT & INSPECTION: Yes respiratory distress AUSCULTATION: crackles and rhonchi Urinary Catheter Management: Obrien: Cath Placed During This Visit: yes Reason for Continuing Indwelling Catheter: Other Urinary Catheter Date of Insertion: 03/24/24 Urinary Catheter Time of Insertion: 05:45 Data 03/30/24 06:27 03/30/24 06:27 Micro: Microbiology 03/24/24 12:08 Blood Culture - Final Blood NO GROWTH AFTER 5 DAYS 03/24/24 12:04 Blood Culture - Final Blood NO GROWTH AFTER 5 DAYS A&P Assessment and plan (1) Acute hypoxemic respiratory failure: Most likely in setting of bilateral pneumonia along with baseline severe pulmonary hypertension as per echocardiogram. Appreciate CTA negative for pulmonary embolism Oxygen supplementation keeping saturation over 90%. Switch over to high flow nasal cannula decreased to work of breathing. BiPAP nightly. Out of bed to chair. Aggressive pulmonary toilet with I-S and Acapella. Will plan to add chest vest twice daily. Pulmicort twice daily, DuoNebs every 6 hour. Continue Solu-Medrol 20 mg twice daily for 1 more day. Will transition to oral prednisone in a.m. for taper. Patient continues to have good urine output. Hold off on further diuresis for now. Repeat BMP in afternoon. Sputum culture growing yeast. Continue with oral fluconazole to finish a 7-day course. Given slow improvement further workup including beta D glucan. LDH normal. Will continue to follow. Continue with aggressive pulmonary toilet. Continue with I-S and Acapella along with chest vest. Out of bed to chair. (2) Community acquired pneumonia: Sputum culture pending, MRSA swab negative. Respiratory viral panel, urine Legionella, bacterial antigen negative. Continue with meropenem to finish a 7-day course on 03/31. Last day of azithromycin on 03/28. MRSA negative so vancomycin discontinued. (3) Sepsis: Resolving. Present on admission. SIRS: Tachycardic, leukocytosis Source: Pneumonia End organ damage: Acute respiratory failure Lactic acid within normal limits Patient did receive full 30 mL/kg BW. Monitor blood pressures. Keep mean artery pressure 65 mmHg. (4) Type 2 diabetes mellitus: Diabetes rule out. A1c 5.8. Insulin sliding scale as patient is on high-dose steroids. (5) Hypertension: Goal blood pressure less than 140/90 mmHg. Takes losartan 12.5 mg, amlodipine 10 mg daily at home. For now we will continue to hold off on losartan. Continue with home dose of amlodipine. Uptitrate as per goal blood pressures. Echocardiogram shows EF 55 to 60%, grade 1 diastolic dysfunction, moderate TR, RVSP of 60 mmHg with severe pulmonary hypertension, mild to moderate AI. (6) Severe pulmonary hypertension: (7) Physical deconditioning: Plan Continue chronic home medications including levothyroxine, Celexa, atorvastatin, baby aspirin. CODE STATUS: Discussed in detail with the patient. Full code Started on clear liquid diet. If tolerating well will transition to regular diet by night. Protonix OPD prophylaxis Heparin 5000 every 12 hourly for DVT prophylaxis Physical therapy. Out of bed to chair. Patient states he is usually bedbound as prescribed by an orthopedic surgeon on 7 years ago after femur fracture ORIF. He states he usually transitions from bed to chair and tries to be nonweightbearing. X-ray femur left leg, x-ray right knee. Encourage patient to be out of bed to chair and ambulate as with physical therapy. Patient is agreeable. Plan for today: Continue with IV antibiotics to finish a 7-day course. Last day on 03/31. Appreciate sputum culture results. Continue with fluconazole to finish a 7-day course as well. Continues to have good urine output. Echocardiogram showed severe pulmonary hypertension. Patient net 750 cc negative. Given severe pulmonary hypertension, labile respiratory status will give 20 mg of oral Lasix more. Start on fluid restriction of less than 1500 cc. Blood pressure stable. Continue with current antihypertensive. Continue with aggressive pulmonary toilet with chest vest. Out of bed to bed. Counseled patient detail about continuous extensive workup with incentive spirometry to improve lung functions. Patient verbalized understanding. Discussed in detail with patient's RN at bedside to continue to encourage patient for ambulation and to maximize his time in the chair as much as possible. Discharge plan: Plan to discharge home with home health with nursing for possible pulmonary rehab. If patient does not improve within next 48 hours or continues to have episodes of desaturation patient might need transition to LTAC as patient would require extensive pulmonary and physical rehabilitation while monitoring his oxygen saturations. Attestations 2 Medical Necessity Statement*: Requires further hospitalization for management of hypoxic respiratory failure in setting of physical deconditioning in a patient who was admitted with bilateral community-acquired pneumonia, severe pulmonary hypertension as patient remains on high oxygen supplementation with frequent episodes of decompensation with minimal ambulation Diagnoses Acute hypoxemic respiratory failure J96.01 Community acquired pneumonia J18.9 Sepsis A41.9 Type 2 diabetes mellitus E11.9 Hypertension I10 Severe pulmonary hypertension I27.20 Physical deconditioning R53.81
[2024-03-30] MEDS: FUROsemide 20 mg Tablet PO (13:49)
[2024-03-30 16:32] LABS: Glucose Point of Care 221 mg/dL (70-110)
[2024-03-30] MEDS: atorvastatin 40 mg Tablet 20 MG PO (16:58)
[2024-03-30] MEDS: lanolin oint 7 gm 1 APPLIC TOPICAL (16:58)
[2024-03-30] MEDS: pantoprazole 40 mg SDV IVP (17:36)
[2024-03-30 20:23] LABS: Glucose Point of Care 181 mg/dL (70-110)
[2024-03-31] VITALS (14 sets, daily range): BP systolic 118–135; BP diastolic 42–70; PULSE 57–70; RESP 16–32; TEMP 36.4–37; O2SAT 89–96
[2024-03-31] MEDS: ipratropium-albuterol 3 mL Neb INHALATION ×4 (02:38→21:33)
[2024-03-31] MEDS: acetylcysteine 200 mg/mL SDV 4 mL 100 MG INHALATION ×3 (02:38→21:33)
[2024-03-31 03:30] LABS: Basophils % 0.1 %; Hematocrit 37.3 % (37-53); Lymphocytes # 1.1 10^3/uL (0.8-4.8); Lymphocytes % 7.3 %; Mean Corpuscular Hemoglobin 27.2 pg (27-33); Mean Corpuscular Volume 82.3 fl (82-101); Mean Platelet Volume 9.2 fL (7.4-10.4); Monocytes # 0.5 10^3/uL (0.2-0.9); Monocytes % 3.1 %; Neutrophils # 13.12 10^3/uL (1.8-7.7); Nucleated Red Blood Cells % 0 %; Platelet Count 407 10^3/cmm (157-399); Red Blood Count 4.53 10^6/uL (3.85-5.65); Red Cell Distribution Width 13.3 % (12.1-15.1); White Blood Count 14.75 10^3/uL (3.29-11.43)
[2024-03-31 03:50] LABS: Alanine Aminotransferase 69 U/L (0-41); Albumin Level 2.9 g/dL (3.5-5.2); Alkaline Phosphatase 104 U/L (40-130); Blood Urea Nitrogen 32 mg/dL (8-23); Calcium 8.3 mg/dL (8.5-10.5); Carbon Dioxide 27 mmol/L (22-29); Chloride 98 mmol/L (98-107); Creatinine Clr Calc Pharmacy 84.8173; Globulin 3.7 g/dL (1.3-4.6); Glucose 138 mg/dL (65-115); Osmolality Calculated 283 mOsm/kg (285-295); Sodium 132 mmol/L (136-145); Total Bilirubin 0.3 mg/dL (0.15-1.2); Total Protein 6.6 g/dL (6.6-8.7)
[2024-03-31 03:57] LABS: Anion Gap 11.9 (5-19); Aspartate Amino Transferase 42 U/L (0-40); Potassium 4.9 mmol/L (3.5-5.1)
[2024-03-31] MEDS: heparin 5,000 unit/mL INJ 1 mL 5000 UNIT SUBCUT ×2 (05:52→17:37)
[2024-03-31] MEDS: meropenem 1,000 MG in sodium chloride 0.9% (plus) 50 ML 100 MG IV ×2 (05:52→14:22)
[2024-03-31] MEDS: levothyroxine 200 mcg Tablet PO (05:53)
[2024-03-31 06:32] LABS: Glucose Point of Care 169 mg/dL (70-110)
[2024-03-31] MEDS: nystatin 100,000 unit/mL UDC 5 mL 100000 UNIT PO ×4 (08:05→20:31)
[2024-03-31] MEDS: insulin lispro 100 unit/1 mL SUBCUT ×4 (08:05→20:47)
[2024-03-31] MEDS: fluconazole 100 mg Tablet PO (08:06)
[2024-03-31] MEDS: citalopram 20 mg Tablet PO (08:06)
[2024-03-31] MEDS: aspirin 81 mg EC Tablet PO (08:06)
[2024-03-31] MEDS: amlodipine 10 mg Tablet PO (08:06)
[2024-03-31] MEDS: gabapentin 300 mg Capsule PO ×3 (08:06→20:32)
[2024-03-31] MEDS: methylPREDNISolone sod succ 40 mg/mL INJ 20 MG IVP ×2 (08:06→17:36)
[2024-03-31] MEDS: tamsulosin 0.4 mg Capsule 0.400000000000000022 MG PO (08:06)
[2024-03-31] MEDS: buPROPion SR (12 HR) 100 mg Tablet 200 MG PO ×2 (08:10→17:37)
[2024-03-31] MEDS: budesonide 0.5 mg/2 mL Neb INHALATION ×2 (09:31→21:33)
[2024-03-31 12:01] LABS: Glucose Point of Care 196 mg/dL (70-110)
--- NOTE | 2024-03-31 12:41 | P.PN_ITS ---
Subjective 2 Subjective: seen today pt desaturates upon exertion Patient has been bedbound for the last 7 years. He had an ORIF done and was nonweightbearing thereafter. He says he does not want to move and would like to stay bedbound. Patient is severely deconditioned. Vitals/I&O/Wt Last Vital Signs Temp 97.6 F 03/31/24 07:42 Pulse 68 03/31/24 09:33 Resp 18 03/31/24 09:33 BP 118/70 03/31/24 07:42 Pulse Ox 94 03/31/24 09:33 O2 Del Method High Flow Nasal Cannula 03/31/24 09:33 O2 Flow Rate 4 03/31/24 09:33 FiO2 35 03/31/24 04:00 03/30/24 03/31/24 03/31/24 22:59 06:59 14:59 Intake Total 600 / 1610 600 / 2210 240 / 240 Output Total 600 / 1300 Balance 0 / 310 600 / 910 240 / 240 Weight last 48 hrs Weight 83.007 kg Weight 84.368 kg Physical Exam 2 Narrative: General: No acute distress, AO x3, on nasal canula HEENT: PERRLA, pupils bilaterally equal and reactive Chest: Bilateral normal vesicular breath sounds all over lung almaguer, mild bilateral crackles and rhonchi however mostly clear. CVS: S1-S2 regular, no murmurs, tachycardia, no gallops, no rubs Abdomen: Soft, nontender, no organomegaly, bowel sounds present Neuro: Able to move all 4 extremities. Urinary Catheter Management: Obrien: Cath Placed During This Visit: yes Reason for Continuing Indwelling Catheter: Other Urinary Catheter Date of Insertion: 03/24/24 Urinary Catheter Time of Insertion: 05:45 Data 03/31/24 02:24 03/31/24 02:24 Micro: Microbiology 03/27/24 13:20 Sputum Culture - Final Sputum - Expectorated Sputum Em albicans A&P Assessment and plan (1) Acute hypoxemic respiratory failure: Most likely in setting of bilateral pneumonia along with baseline severe pulmonary hypertension as per echocardiogram. Appreciate CTA negative for pulmonary embolism Oxygen supplementation keeping saturation over 90%. Switch over to high flow nasal cannula decreased to work of breathing. BiPAP nightly. Out of bed to chair. Aggressive pulmonary toilet with I-S and Acapella. Will plan to add chest vest twice daily. Pulmicort twice daily, DuoNebs every 6 hour. Continue Solu-Medrol 20 mg twice daily for 1 more day. Will transition to oral prednisone in a.m. for taper. Patient continues to have good urine output. Hold off on further diuresis for now. Repeat BMP in afternoon. Sputum culture growing yeast. Continue with oral fluconazole to finish a 7-day course. Given slow improvement further workup including beta D glucan. LDH normal. Will continue to follow. Continue with aggressive pulmonary toilet. Continue with I-S and Acapella along with chest vest. Out of bed to chair. (2) Community acquired pneumonia: Sputum culture pending, MRSA swab negative. Respiratory viral panel, urine Legionella, bacterial antigen negative. Continue with meropenem to finish a 7-day course on 03/31. Last day of azithromycin on 03/28. MRSA negative so vancomycin discontinued. (3) Sepsis: Resolving. Present on admission. SIRS: Tachycardic, leukocytosis Source: Pneumonia End organ damage: Acute respiratory failure Lactic acid within normal limits Patient did receive full 30 mL/kg BW. Monitor blood pressures. Keep mean artery pressure 65 mmHg. (4) Type 2 diabetes mellitus: Diabetes rule out. A1c 5.8. Insulin sliding scale as patient is on high-dose steroids. (5) Hypertension: Goal blood pressure less than 140/90 mmHg. Takes losartan 12.5 mg, amlodipine 10 mg daily at home. For now we will continue to hold off on losartan. Continue with home dose of amlodipine. Uptitrate as per goal blood pressures. Echocardiogram shows EF 55 to 60%, grade 1 diastolic dysfunction, moderate TR, RVSP of 60 mmHg with severe pulmonary hypertension, mild to moderate AI. (6) Severe pulmonary hypertension: (7) Physical deconditioning: Plan Continue chronic home medications including levothyroxine, Celexa, atorvastatin, baby aspirin. CODE STATUS: Discussed in detail with the patient. Full code Started on clear liquid diet. If tolerating well will transition to regular diet by night. Protonix OPD prophylaxis Heparin 5000 every 12 hourly for DVT prophylaxis Physical therapy. Out of bed to chair. Patient states he is usually bedbound as prescribed by an orthopedic surgeon on 7 years ago after femur fracture ORIF. He states he usually transitions from bed to chair and tries to be nonweightbearing. X-ray femur left leg, x-ray right knee. Encourage patient to be out of bed to chair and ambulate as with physical therapy. Patient is agreeable. Plan for today: Continue with IV antibiotics to finish a 7-day course. Last day on 03/31. Appreciate sputum culture results. Continue with fluconazole to finish a 7-day course as well. Continues to have good urine output. Echocardiogram showed severe pulmonary hypertension. Order lasix 20 mg iv x 1 today Start on fluid restriction of less than 1500 cc. Blood pressure stable. Continue with current antihypertensive. Continue with aggressive pulmonary toilet with chest vest. Out of bed to bed. Counseled patient detail about continuous extensive workup with incentive spirometry to improve lung functions. Patient verbalized understanding. Discussed in detail with patient's RN at bedside to continue to encourage patient for ambulation and to maximize his time in the chair as much as possible. May try oxypendant. work with PT for transfers pt is chronically bed bound. he states he normally does not ambulate. He would like to go home. Discharge plan: Plan to discharge home with home health with nursing for possible pulmonary rehab. If patient does not improve within next 48 hours or continues to have episodes of desaturation patient might need transition to LTAC as patient would require extensive pulmonary and physical rehabilitation while monitoring his oxygen saturations. Attestations 2 Medical Necessity Statement*: Requires further hospitalization for management of hypoxic respiratory failure in setting of physical deconditioning in a patient who was admitted with bilateral community-acquired pneumonia, severe pulmonary hypertension as patient remains on high oxygen supplementation with frequent episodes of decompensation with minimal ambulation Diagnoses Acute hypoxemic respiratory failure J96.01 Community acquired pneumonia J18.9 Sepsis A41.9 Type 2 diabetes mellitus E11.9 Hypertension I10 Severe pulmonary hypertension I27.20 Physical deconditioning R53.81
--- NOTE | 2024-03-31 15:29 | PC.SOCIAL ---
IMM Updated Updated pt on IMM. No questions voiced. Provided pt a copy. Initialed, dated, & timed copy in chart.
[2024-03-31 16:36] LABS: Glucose Point of Care 240 mg/dL (70-110)
[2024-03-31] MEDS: pantoprazole 40 mg SDV IVP (17:36)
[2024-03-31] MEDS: atorvastatin 40 mg Tablet 20 MG PO (17:37)
[2024-03-31 20:38] LABS: Glucose Point of Care 202 mg/dL (70-110)
[2024-04-01] VITALS (14 sets, daily range): BP systolic 116–132; BP diastolic 60–68; PULSE 57–72; RESP 16–29; TEMP 36.5–37; O2SAT 3–96
[2024-04-01] MEDS: ipratropium-albuterol 3 mL Neb INHALATION ×4 (02:46→19:57)
[2024-04-01] MEDS: acetylcysteine 200 mg/mL SDV 4 mL 100 MG INHALATION ×4 (02:46→19:57)
[2024-04-01] MEDS: heparin 5,000 unit/mL INJ 1 mL 5000 UNIT SUBCUT ×2 (05:30→17:33)
[2024-04-01] MEDS: levothyroxine 200 mcg Tablet PO (05:30)
[2024-04-01 06:38] LABS: Glucose Point of Care 160 mg/dL (70-110)
[2024-04-01] MEDS: budesonide 0.5 mg/2 mL Neb INHALATION ×2 (07:28→19:58)
[2024-04-01] MEDS: insulin lispro 100 unit/1 mL SUBCUT ×4 (08:49→20:51)
[2024-04-01] MEDS: buPROPion SR (12 HR) 100 mg Tablet 200 MG PO ×2 (08:49→17:33)
[2024-04-01] MEDS: nystatin 100,000 unit/mL UDC 5 mL 100000 UNIT PO ×4 (08:49→20:51)
[2024-04-01] MEDS: citalopram 20 mg Tablet PO (08:50)
[2024-04-01] MEDS: fluconazole 100 mg Tablet PO (08:50)
[2024-04-01] MEDS: tamsulosin 0.4 mg Capsule 0.400000000000000022 MG PO (08:50)
[2024-04-01] MEDS: aspirin 81 mg EC Tablet PO (08:50)
[2024-04-01] MEDS: methylPREDNISolone sod succ 40 mg/mL INJ 20 MG IVP ×2 (08:50→17:32)
[2024-04-01] MEDS: amlodipine 10 mg Tablet PO (08:50)
[2024-04-01] MEDS: gabapentin 300 mg Capsule PO ×3 (08:50→20:51)
[2024-04-01] MEDS: lactulose oral liq 20 gm/30 mL UDC 10 GM PO (08:56)
[2024-04-01 11:15] LABS: Glucose Point of Care 145 mg/dL (70-110)
--- NOTE | 2024-04-01 13:43 | P.PN_ITS ---
Subjective 2 Subjective: seen this morning labs pending today pt states his goal is to be able to transfer from bed to chair to wheelchair and back Vitals/I&O/Wt Last Vital Signs Temp 98.0 F 04/01/24 08:00 Pulse 68 04/01/24 11:59 Resp 18 04/01/24 11:59 BP 125/60 04/01/24 11:59 Pulse Ox 90 04/01/24 11:59 O2 Del Method Nasal Cannula 04/01/24 11:59 O2 Flow Rate 4 04/01/24 07:29 FiO2 35 03/31/24 21:37 03/31/24 04/01/24 04/01/24 22:59 06:59 14:59 Intake Total 410 / 650 360 / 1010 360 / 360 Output Total 500 / 1900 2000 / 3900 800 / 800 Balance -90 / -1250 -1640 / -2890 -440 / -440 Weight last 48 hrs Weight 83.007 kg Weight 83.007 kg Physical Exam 2 Narrative: General: No acute distress, AO x3, on nasal canula HEENT: PERRLA, pupils bilaterally equal and reactive Chest: Bilateral normal vesicular breath sounds all over lung almaguer, mild bilateral crackles and rhonchi however mostly clear. CVS: S1-S2 regular, no murmurs, tachycardia, no gallops, no rubs Abdomen: Soft, nontender, no organomegaly, bowel sounds present Neuro: Able to move all 4 extremities. Urinary Catheter Management: Obrien: Cath Placed During This Visit: yes Reason for Continuing Indwelling Catheter: Other Urinary Catheter Date of Insertion: 03/24/24 Urinary Catheter Time of Insertion: 05:45 Data 03/31/24 02:24 03/31/24 02:24 A&P Assessment and plan (1) Acute hypoxemic respiratory failure: Most likely in setting of bilateral pneumonia along with baseline severe pulmonary hypertension as per echocardiogram. Appreciate CTA negative for pulmonary embolism Oxygen supplementation keeping saturation over 90%. Switch over to high flow nasal cannula decreased to work of breathing. BiPAP nightly. Out of bed to chair. Aggressive pulmonary toilet with I-S and Acapella. Will plan to add chest vest twice daily. Pulmicort twice daily, DuoNebs every 6 hour. Continue Solu-Medrol 20 mg twice daily for 1 more day. Will transition to oral prednisone in a.m. for taper. Patient continues to have good urine output. Hold off on further diuresis for now. Repeat BMP in afternoon. Sputum culture growing yeast. Continue with oral fluconazole to finish a 7-day course. Given slow improvement further workup including beta D glucan. LDH normal. Will continue to follow. Continue with aggressive pulmonary toilet. Continue with I-S and Acapella along with chest vest. Out of bed to chair. (2) Community acquired pneumonia: Sputum culture pending, MRSA swab negative. Respiratory viral panel, urine Legionella, bacterial antigen negative. Continue with meropenem to finish a 7-day course on 03/31. Last day of azithromycin on 03/28. MRSA negative so vancomycin discontinued. (3) Sepsis: Resolving. Present on admission. SIRS: Tachycardic, leukocytosis Source: Pneumonia End organ damage: Acute respiratory failure Lactic acid within normal limits Patient did receive full 30 mL/kg BW. Monitor blood pressures. Keep mean artery pressure 65 mmHg. (4) Type 2 diabetes mellitus: Diabetes rule out. A1c 5.8. Insulin sliding scale as patient is on high-dose steroids. (5) Hypertension: Goal blood pressure less than 140/90 mmHg. Takes losartan 12.5 mg, amlodipine 10 mg daily at home. For now we will continue to hold off on losartan. Continue with home dose of amlodipine. Uptitrate as per goal blood pressures. Echocardiogram shows EF 55 to 60%, grade 1 diastolic dysfunction, moderate TR, RVSP of 60 mmHg with severe pulmonary hypertension, mild to moderate AI. (6) Severe pulmonary hypertension: (7) Physical deconditioning: Plan Continue chronic home medications including levothyroxine, Celexa, atorvastatin, baby aspirin. CODE STATUS: Discussed in detail with the patient. Full code Started on clear liquid diet. If tolerating well will transition to regular diet by night. Protonix OPD prophylaxis Heparin 5000 every 12 hourly for DVT prophylaxis Physical therapy. Out of bed to chair. Patient states he is usually bedbound as prescribed by an orthopedic surgeon on 7 years ago after femur fracture ORIF. He states he usually transitions from bed to chair and tries to be nonweightbearing. X-ray femur left leg, x-ray right knee. Encourage patient to be out of bed to chair and ambulate as with physical therapy. Patient is agreeable. Plan for today: Antibiotics completed. Continue with fluconazole to finish a 7-day course as well. Continues to have good urine output. Echocardiogram showed severe pulmonary hypertension. Order lasix 20 mg iv x 1 today Continue fluid restriction of less than 1500 cc. Blood pressure stable. Continue with current antihypertensive. Continue with aggressive pulmonary toilet with chest vest. Out of bed to bed. Counseled patient detail about continuous extensive workup with incentive spirometry to improve lung functions. Patient verbalized understanding. May try oxypendant. work with PT for transfers pt is chronically bed bound. he states he normally does not ambulate. He would like to go home. Discharge plan: Home o2 eval today, plan to possibly go home in am check labs in AM Attestations 2 Medical Necessity Statement*: Requires further hospitalization for management of hypoxic respiratory failure in setting of physical deconditioning in a patient who was admitted with bilateral community-acquired pneumonia, severe pulmonary hypertension as patient remains on high oxygen supplementation with frequent episodes of decompensation with minimal ambulation Diagnoses Acute hypoxemic respiratory failure J96.01 Community acquired pneumonia J18.9 Sepsis A41.9 Type 2 diabetes mellitus E11.9 Hypertension I10 Severe pulmonary hypertension I27.20 Physical deconditioning R53.81
[2024-04-01 17:05] LABS: Glucose Point of Care 167 mg/dL (70-110)
[2024-04-01] MEDS: pantoprazole 40 mg SDV IVP (17:32)
[2024-04-01] MEDS: atorvastatin 40 mg Tablet 20 MG PO (17:33)
[2024-04-01 20:43] LABS: Glucose Point of Care 236 mg/dL (70-110)
[2024-04-02] VITALS (27 sets, daily range): BP systolic 104–136; BP diastolic 50–76; PULSE 58–70; RESP 10–26; TEMP 36.3–36.8; O2SAT 73–99
[2024-04-02 05:13] LABS: Basophils % 0.1 %; Hematocrit 38.4 % (37-53); Lymphocytes # 1.2 10^3/uL (0.8-4.8); Lymphocytes % 7.6 %; Mean Corpuscular HGB Conc 33.6 g/dL (30-55); Mean Corpuscular Hemoglobin 27.4 pg (27-33); Mean Corpuscular Volume 81.7 fl (82-101); Monocytes # 0.7 10^3/uL (0.2-0.9); Monocytes % 4.2 %; Neutrophils # 14.24 10^3/uL (1.8-7.7); Neutrophils % 87.4 %; Nucleated Red Blood Cells % 0 %; Platelet Count 432 10^3/cmm (157-399); Red Cell Distribution Width 13.2 % (12.1-15.1); White Blood Count 16.28 10^3/uL (3.29-11.43)
[2024-04-02 05:35] LABS: Anion Gap 14.9 (5-19); Blood Urea Nitrogen 33 mg/dL (8-23); Calcium 8.7 mg/dL (8.5-10.5); Carbon Dioxide 25 mmol/L (22-29); Chloride 96 mmol/L (98-107); Creatinine Clr Calc Pharmacy 83.4654; Glucose 140 mg/dL (65-115); Magnesium 2.5 mg/dL (1.7-2.3); Osmolality Calculated 282 mOsm/kg (285-295); Potassium 4.9 mmol/L (3.5-5.1); Sodium 131 mmol/L (136-145)
[2024-04-02] MEDS: heparin 5,000 unit/mL INJ 1 mL 5000 UNIT SUBCUT ×2 (05:41→17:13)
[2024-04-02] MEDS: levothyroxine 200 mcg Tablet PO (05:41)
[2024-04-02 06:35] LABS: Glucose Point of Care 152 mg/dL (70-110)
[2024-04-02] MEDS: acetylcysteine 200 mg/mL SDV 4 mL 100 MG INHALATION (08:22)
[2024-04-02] MEDS: ipratropium-albuterol 3 mL Neb INHALATION ×2 (08:22→20:25)
[2024-04-02] MEDS: budesonide 0.5 mg/2 mL Neb INHALATION ×2 (08:22→20:19)
--- NOTE | 2024-04-02 08:35 | CT_ITS ---
WS: [id number] CT CHEST, ABDOMEN AND PELVIS WITHOUT CONTRAST HISTORY: leukocystosis, hypoxia TECHNIQUE: Contiguous 5 mm axial imaging performed through the chest, abdomen and pelvis without IV c ontrast, oral contrast has not been provided. Coronal and sagittal reformats chest. Coronal and sagit oh reformats through the abdomen and pelvis. All CT scans at [facility] use at least one of these dose optimization techniques: automated exposure control; mA and/or kV adjustment per patient s ize (includes targeted exams where dose is matched to clinical indication); or iterative reconstructi on. CONTRAST: Omnipaque 350; 100 mL IV. DLP: 945.19 mGy.cm COMPARISON: 03/24/2024, 01/13/[address]: Diffuse dense airspace disease noted bilaterally. Sparing at the apices. Very similar distr ibution without improvement as compared to 03/24/2024. Dense fibrotic changes with honeycombing and br onchiectasis at the lung bases. There is now moderate amount of pneumomediastinum. The pneumomediasti num dissects into the RIGHT neck. No pneumothorax. Heart is enlarged. Dilated pulmonary artery. Mild atherosclerosis aorta. Abdomen CT: Small hiatal hernia. Liver and spleen are negative. Motion artifact due to breathing. Abn ormal gallbladder. This may be due to a motion artifact but I suspect there are stones or mass in the gallbladder body. This is likely a stone as a stone was described on a prior CT from 01/13/2019. Nega tive pancreas. No adrenal mass. No renal obstruction. Mild atherosclerosis aorta. Stomach is distended with fluid. No small bowel obstruction. Constipation. Sigmoid diverticulosis wit hout acute diverticulitis. Appendix is identified and normal without acute appendicitis. There is an appendicolith present. No adenopathy or free fluid. Pelvic CT: No free fluid. No adenopathy. Obrien catheter is present. Mild degenerative joint disease involving the hips. Increase in thoracic kyphosis. Osteopenia. CT/[place] [id number] IMPRESSION: 1. Advanced dense consolidations throughout both lungs. Consolidations are sup erimposed on additional opacifications consistent with UIP. It is difficult to identify the extent of acute on chronic disease. Very similar to 03/24/2024. Sig nificant progression and predominantly new honeycombing and bronchiectasis as c ompared to 2019. 2. New moderate pneumomediastinum since 03/24/2024. Pneumomediastinum dissects into the RIGHT neck. 3. Cholelithiasis. No evidence for acute cholecystitis. 4. No appendicitis. 5. No GI tract obstruction. 6. No free fluid or free air.
[2024-04-02] MEDS: insulin lispro 100 unit/1 mL SUBCUT ×4 (08:39→20:25)
[2024-04-02] MEDS: aspirin 81 mg EC Tablet PO (08:39)
[2024-04-02] MEDS: gabapentin 300 mg Capsule PO ×3 (08:39→20:12)
[2024-04-02] MEDS: tamsulosin 0.4 mg Capsule 0.400000000000000022 MG PO (08:39)
[2024-04-02] MEDS: buPROPion SR (12 HR) 100 mg Tablet 200 MG PO ×2 (08:39→17:14)
[2024-04-02] MEDS: citalopram 20 mg Tablet PO (08:39)
[2024-04-02] MEDS: amlodipine 10 mg Tablet PO (08:39)
[2024-04-02] MEDS: fluconazole 100 mg Tablet PO (08:39)
[2024-04-02] MEDS: nystatin 100,000 unit/mL UDC 5 mL 100000 UNIT PO ×4 (08:40→20:12)
[2024-04-02] MEDS: methylPREDNISolone sod succ 40 mg/mL INJ 20 MG IVP (08:40)
[2024-04-02 11:14] LABS: Glucose Point of Care 203 mg/dL (70-110)
--- NOTE | 2024-04-02 12:07 | P.PN_ITS ---
Subjective 2 Subjective: seen today wbc trending up check ct chest today patient told PT to take him off their list as he is not interested in going through any kind of therapy he says he does not want to move out of bed Vitals/I&O/Wt Last Vital Signs Temp 98.2 F 04/02/24 11:21 Pulse 70 04/02/24 11:21 Resp 18 04/02/24 11:21 BP 126/60 04/02/24 11:21 Pulse Ox 93 04/02/24 11:21 O2 Del Method Nasal Cannula 04/02/24 11:21 O2 Flow Rate 5 04/02/24 08:23 FiO2 35 04/01/24 20:01 04/01/24 04/02/24 04/02/24 22:59 06:59 14:59 Intake Total 360 / 720 240 / 240 Output Total 1150 / 1950 1450 / 3400 800 / 800 Balance -790 / -1230 -1450 / -2680 -560 / -560 Weight last 48 hrs Weight 81.278 kg Weight 83.007 kg Physical Exam 2 Narrative: General: No acute distress, AO x3, on nasal canula HEENT: PERRLA, pupils bilaterally equal and reactive Chest: Bilateral normal vesicular breath sounds all over lung almaguer, crackles improved. CVS: S1-S2 regular, no murmurs, tachycardia, no gallops, no rubs Abdomen: Soft, nontender, no organomegaly, bowel sounds present Neuro: Able to move all 4 extremities. Urinary Catheter Management: Obrien: Cath Placed During This Visit: yes Reason for Continuing Indwelling Catheter: Other Urinary Catheter Date of Insertion: 03/24/24 Urinary Catheter Time of Insertion: 05:45 Data 04/02/24 04:35 04/02/24 04:35 A&P Assessment and plan (1) Acute hypoxemic respiratory failure: Most likely in setting of bilateral pneumonia along with baseline severe pulmonary hypertension as per echocardiogram. Appreciate CTA negative for pulmonary embolism Oxygen supplementation keeping saturation over 90%. Switch over to high flow nasal cannula decreased to work of breathing. BiPAP nightly. Out of bed to chair. Aggressive pulmonary toilet with I-S and Acapella. Will plan to add chest vest twice daily. Pulmicort twice daily, DuoNebs every 6 hour. Continue Solu-Medrol 20 mg twice daily for 1 more day. Will transition to oral prednisone in a.m. for taper. Patient continues to have good urine output. Hold off on further diuresis for now. Repeat BMP in afternoon. Sputum culture growing yeast. Continue with oral fluconazole to finish a 7-day course. Given slow improvement further workup including beta D glucan. LDH normal. Will continue to follow. Continue with aggressive pulmonary toilet. Continue with I-S and Acapella along with chest vest. Out of bed to chair. (2) Community acquired pneumonia: Sputum culture pending, MRSA swab negative. Respiratory viral panel, urine Legionella, bacterial antigen negative. Continue with meropenem to finish a 7-day course on 03/31. Last day of azithromycin on 03/28. MRSA negative so vancomycin discontinued. (3) Sepsis: Resolving. Present on admission. SIRS: Tachycardic, leukocytosis Source: Pneumonia End organ damage: Acute respiratory failure Lactic acid within normal limits Patient did receive full 30 mL/kg BW. Monitor blood pressures. Keep mean artery pressure 65 mmHg. (4) Type 2 diabetes mellitus: Diabetes rule out. A1c 5.8. Insulin sliding scale as patient is on high-dose steroids. (5) Hypertension: Goal blood pressure less than 140/90 mmHg. Takes losartan 12.5 mg, amlodipine 10 mg daily at home. For now we will continue to hold off on losartan. Continue with home dose of amlodipine. Uptitrate as per goal blood pressures. Echocardiogram shows EF 55 to 60%, grade 1 diastolic dysfunction, moderate TR, RVSP of 60 mmHg with severe pulmonary hypertension, mild to moderate AI. (6) Severe pulmonary hypertension: (7) Physical deconditioning: Plan Continue chronic home medications including levothyroxine, Celexa, atorvastatin, baby aspirin. CODE STATUS: Discussed in detail with the patient. Full code Started on clear liquid diet. If tolerating well will transition to regular diet by night. Protonix OPD prophylaxis Heparin 5000 every 12 hourly for DVT prophylaxis Physical therapy. Out of bed to chair. Patient states he is usually bedbound as prescribed by an orthopedic surgeon on 7 years ago after femur fracture ORIF. He states he usually transitions from bed to chair and tries to be nonweightbearing. X-ray femur left leg, x-ray right knee. Encourage patient to be out of bed to chair and ambulate as with physical therapy. Patient is agreeable. Plan for today: Antibiotics completed. Continue with fluconazole to finish a 7-day course as well. Continues to have good urine output. Echocardiogram showed severe pulmonary hypertension. Order lasix 20 mg iv x 1 today Continue fluid restriction of less than 1500 cc. Blood pressure stable. Continue with current antihypertensive. Continue with aggressive pulmonary toilet with chest vest. Counseled patient detail about continuous extensive workup with incentive spirometry to improve lung functions. Patient verbalized understanding. May try oxypendant. work with PT for transfers pt is chronically bed bound. he states he normally does not ambulate. He would like to go home. Discharge plan: Home o2 eval today, plan to possibly go home in am check labs in AM ct chest abd pelvis today Attestations 2 Medical Necessity Statement*: Requires further hospitalization for management of hypoxic respiratory failure in setting of physical deconditioning in a patient who was admitted with bilateral community-acquired pneumonia, severe pulmonary hypertension as patient remains on high oxygen supplementation with frequent episodes of decompensation with minimal ambulation Diagnoses Acute hypoxemic respiratory failure J96.01 Community acquired pneumonia J18.9 Sepsis A41.9 Type 2 diabetes mellitus E11.9 Hypertension I10 Severe pulmonary hypertension I27.20 Physical deconditioning R53.81
[2024-04-02] MEDS: FUROsemide 10 mg/mL SDV 2mL 20 MG IVP (13:14)
--- NOTE | 2024-04-02 13:59 | CTR_ITS ---
PROCEDURE INFORMATION: Exam: CT Chest Without Contrast; Diagnostic Exam date and time: 04/02/2024 4:08 PM Age: 78 years old Clinical indication: Screening exam; Other screening; Additional info: Oral gastrograffin to be given, look for esophageal rupture TECHNIQUE: Imaging protocol: Diagnostic computed tomography of the chest without contrast. Radiation optimization: All CT scans at this facility use at least one of these dose optimization techniques: automated exposure control; mA and/or kV adjustment per patient size (includes targeted exams where dose is matched to clinical indication); or iterative reconstruction. COMPARISON: [place] [id number] 04/02/2024 12:56 PM RADIATION DOSE METRICS: Total DLP (mGy-cm): 542.6 FINDINGS: Lungs: Severe emphysematous changes are again identified. Extensive end-stage honeycomb fibrosis, bronchiectasis and diffuse airspace opacity in the lungs is unchanged. There are scattered calcified pulmonary granulomata. Pleural spaces: Unremarkable. No pneumothorax. No pleural effusion. Heart: Unremarkable. No cardiomegaly. No pericardial effusion. Coronary arteries: There is moderate atherosclerotic calcification of the coronary arteries. Esophagus: No esophageal rupture. Gastrografin contrast is identified in the esophagus and stomach without leak into the mediastinum. Mediastinal space: Pneumomediastinum is again identified mostly in the retrosternal anterior mediastinum. Lymph nodes: Unremarkable. No enlarged lymph nodes. Vasculature: Unremarkable. No aortic aneurysm. Diaphragm: A small hiatal hernia is present. Gallbladder and bile ducts: There is a solitary large gallstone. There is no wall thickening or pericholecystic fluid to suggest cholecystitis. Intestine: There is moderately excessive colonic stool content. Bones/joints: Unremarkable. No acute fracture. Soft tissues: There is subcutaneous emphysema in the lower neck. Other findings: . CT/CT chest wo con [id number] IMPRESSION: 1. No esophageal rupture. Gastrografin contrast is identified in the esophagus and stomach without leak into the mediastinum. 2. Pneumomediastinum is unchanged mostly in the retrosternal anterior mediastinum. 3. Severe emphysematous changes. Extensive end-stage honeycomb fibrosis, bronchiectasis and diffuse airspace opacity in the lungs is unchanged. This diffuse airspace density, which may represent pneumonia, pulmonary edema, or inflammatory pneumonitis such as ARDS. COMMENTS: The presence of pulmonary emphysema on CT is an independent risk factor for lung cancer. In the absence of a history or active diagnosis of lung cancer, it is recommended that this patient with emphysema be evaluated for enrollment in a low dose CT lung cancer screening program.
[2024-04-02] MEDS: methylPREDNISolone sod succ 40 mg/mL INJ IVP (14:53)
--- NOTE | 2024-04-02 15:05 | PC.SOCIAL ---
IMM Updated Updated pt on IMM. No questions voiced. Provided pt a copy. Initialed, dated, & timed copy in chart.
--- NOTE | 2024-04-02 15:12 | PC.RESP ---
rt contacted dr. romero for clarification on resp. orders placed. dr. romero confirmed that she wanted pt placed on regular hfnc and not a heated hfnc.
[2024-04-02] MEDS: iohexol 350 mg/mL 500 mL Btl (per mL) PO (16:12)
[2024-04-02 16:22] LABS: Procalcitonin 0.08 ng/mL (0-0.5)
[2024-04-02 17:08] LABS: D Dimer 2.63 ug/mLFEU (0-0.59)
[2024-04-02 17:09] LABS: Glucose Point of Care 175 mg/dL (70-110)
[2024-04-02] MEDS: atorvastatin 40 mg Tablet 20 MG PO (17:13)
[2024-04-02] MEDS: pantoprazole 40 mg SDV IVP (17:13)
[2024-04-02 17:44] LABS: Lactate Dehydrogenase 170 U/L (135-225)
--- NOTE | 2024-04-02 18:11 | P.CONIM_ITS ---
Providers/Reason For Consult 2 Consulting Physician/Specialty*: Estevan Howard MD/pulmonary critical care Reason for Consult*: Pneumomediastinum and patient with acute on chronic interstitial lung disease Requesting Physician: Rebeka Billingsley MD Attending Physician: Rebeka Billingsley MD Primary Care Provider: [facility] History of Present Illness History of Present Illness Remi Palm is a 78 year old male with past medical history of hypertension, hyperlipidemia, hypothyroidism came to emergency room 03/24/2024 for progressive worsening of breath, productive cough over last 2-3 weeks. Also associated with runny nose and PND. Denies any sick contacts or recent travels. Decreased appetite for the last 2 days. In the ER on presentation was saturating in the low 80s on 4 L and was not able to maintain oxygenation on 12 L of nonrebreather hence placed on BiPAP. CTA ruled out pulmonary embolism but showed dense diffuse bilateral pulmonary infiltrates. Patient also noted to have diffuse bronchiectasis and underlying interstitial lung disease with honeycombing and UIP pattern. He was admitted for acute hypoxemic respiratory failure likely secondary to pneumonia. Patient was requiring high FiO2's. He was placed on BiPAP. He was started on broad-spectrum antibiotics IV vancomycin, meropenem, azithromycin and Solu-Medrol 40 every 6 hours. Legionella urine antigen, bacterial urine antigens were all negative. Sputum cultures grew Em albicans.-Added fluconazole Echocardiogram showed normal LVEF 55 to 60%. Grade 1 diastolic dysfunction. Mild to moderate AR, mild to moderate TR, severe TR. Pulmonary artery systolic pressure 66 Over the hospital course-patient continues to require 4 to 5 L supplemental oxygen however desaturated on minimal ambulation. He completed 5 days of azithromycin, 7-day course of meropenem, MRSA negative so vancomycin discontinued His steroids were tapered down to 20 Mg daily Received Lasix and had good urine output. Patient is chronically bedbound and severely deconditioned and plan was to transfer him to LTAC placement; however patient wanted to go home. Hospitalist taking care of the patient-noticed that patient has been desaturating significantly even with mild activity and hence repeated CT chest which revealed new moderate pneumomediastinum dissecting into right neck. Also noted advanced dense consolidations throughout both lungs throughout both lungs. Consolidation superimposed on additional opacifications consistent with UIP. 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 and has significant food dust exposure without protection Also complaining of bilateral hand joint stiffness and admitted having degenerative arthritis Patient reported that he never followed up with any high school principal and is not aware of any underlying interstitial lung disease Review of Systems 2 General: Reports: 10 or more systems reviewed and unremarkable except in HPI and below Medications/Allergies Home Medications Medication Instructions Recorded Confirmed Last Taken Type amitriptyline 10 mg tablet 20 mg PO BEDTIME 03/24/24 03/24/24 03/22/24 History amlodipine 10 mg tablet 10 mg PO DAILY 03/24/24 03/24/24 03/22/24 History aspirin 81 mg tablet,delayed 81 mg PO DAILY 03/24/24 03/24/24 03/22/24 History release bupropion HCl 200 mg tablet,12 hr 200 mg PO BID 03/24/24 03/24/24 03/22/24 History sustained-release citalopram 40 mg tablet 20 mg PO DAILY 03/24/24 03/24/24 03/22/24 History gabapentin 300 mg capsule 300 mg PO TID 03/24/24 03/24/24 03/22/24 History hydrocodone 5 mg-acetaminophen 325 1 tab PO BID PRN Pain (Scale Score 03/24/24 03/24/24 Unknown History mg tablet 1-3) ibuprofen 800 mg tablet 800 mg PO TID 03/24/24 03/24/24 03/22/24 History levothyroxine 200 mcg tablet 200 mcg PO QAM 03/24/24 03/24/24 03/22/24 History losartan 25 mg tablet 12.5 mg PO DAILY 03/24/24 03/24/24 03/22/24 History methocarbamol 750 mg tablet 750 mg PO TID 03/24/24 03/24/24 03/22/24 History omeprazole 20 mg tablet,delayed 20 mg PO BID 03/24/24 03/24/24 03/22/24 History release pravastatin 40 mg tablet 40 mg PO QPM 03/24/24 03/24/24 03/22/24 History pyridoxine (vitamin B6) 25 mg 25 mg PO DAILY 03/24/24 03/24/24 03/22/24 History tablet (Vitamin B-6) tamsulosin 0.4 mg capsule 0.4 mg PO DAILY 03/24/24 03/24/24 03/22/24 History Allergies Allergy/AdvReac Type Severity Reaction Status Date / Time doxycycline Allergy ALGY-Hives Verified 03/03/21 09:50 Penicillins Allergy ALGY-Hives Verified 03/03/21 09:50 Sulfa (Sulfonamide Allergy ALGY-Hives Verified 03/03/21 09:50 Antibiotics) Current Medications Generic Name Dose Route Start Last Admin Trade Name Freq PRN Reason Stop Dose Admin Acetylcysteine 100 mg 03/28/24 20:00 04/02/24 14:40 Acetylcysteine 200 Mg/Ml Sdv 4 Ml INHALATION Not Given Q6H.RESP THEE Albuterol/Ipratropium 3 ml 03/24/24 16:15 04/02/24 14:40 Ipratropium-Albuterol 3 Ml Neb INHALATION Not Given Q6H.RESP THEE Amlodipine Besylate 10 mg 03/25/24 09:00 04/02/24 08:39 Amlodipine 10 Mg Tablet PO 10 mg DAILY THEE Administration Aspirin 81 mg 03/25/24 09:00 04/02/24 08:39 Aspirin 81 Mg Ec Tablet PO 81 mg DAILY THEE Administration Atorvastatin Calcium 20 mg 03/24/24 18:00 04/02/24 17:13 Atorvastatin 40 Mg Tablet PO 20 mg QPM THEE Administration Budesonide 0.5 mg 03/24/24 20:00 04/02/24 08:22 Budesonide 0.5 Mg/2 Ml Neb INHALATION 0.5 mg BID.RESPIRATORY THEE Administration Bupropion HCl 200 mg 03/24/24 18:00 04/02/24 17:14 Bupropion Sr (12 Hr) 100 Mg Tablet PO 200 mg BID THEE Administration Citalopram Hydrobromide 20 mg 03/25/24 09:00 04/02/24 08:39 Citalopram 20 Mg Tablet PO 20 mg DAILY THEE Administration Fluconazole 100 mg 03/28/24 15:15 04/02/24 08:39 Fluconazole 100 Mg Tablet PO 04/04/24 15:14 100 mg DAILY THEE Administration Gabapentin 300 mg 03/28/24 15:15 04/02/24 14:54 Gabapentin 300 Mg Capsule PO 300 mg TID THEE Administration Heparin Sodium (Porcine) 5,000 unit 03/24/24 17:25 04/02/24 17:13 Heparin 5,000 Unit/Ml Inj 1 Ml SUBCUT 5,000 unit Q12H THEE Administration Insulin Human Lispro 0 unit 03/24/24 21:00 04/02/24 17:14 Insulin Lispro 100 Unit/1 Ml SUBCUT 2 unit WM&BEDTIME THEE Administration Protocol Lactulose 10 gm 03/24/24 17:25 04/01/24 08:56 Lactulose Oral Liq 20 Gm/30 Ml Udc PO 10 gm DAILY PRN Administration Constipation (see protocol) Protocol Lanolin 1 applic 03/30/24 16:15 03/30/24 16:58 Lanolin Oint 7 Gm TOPICAL 1 applic PRN PRN Administration DRYNESS Levothyroxine Sodium 200 mcg 03/25/24 06:00 04/02/24 05:41 Levothyroxine 200 Mcg Tablet PO 200 mcg QAM THEE Administration Methylprednisolone Sodium Succinate 40 mg 04/02/24 14:00 04/02/24 14:53 Methylprednisolone Sod Succ 40 Mg/Ml Inj IVP 40 mg DAILY THEE Administration Nystatin 100,000 unit 03/28/24 17:00 04/02/24 17:13 Nystatin 100,000 Unit/Ml Udc 5 Ml PO 100,000 unit QID THEE Administration Pantoprazole Sodium 40 mg 03/24/24 17:25 04/02/24 17:13 Pantoprazole 40 Mg Sdv IVP 40 mg Q24H THEE Administration Tamsulosin HCl 0.4 mg 03/25/24 09:00 04/02/24 08:39 Tamsulosin 0.4 Mg Capsule PO 0.4 mg DAILY THEE Administration PFSH Acute 2 PFSH: Medical History Severe pulmonary hypertension GERD (gastroesophageal reflux disease) Dyslipidemia Supracondylar fracture of left femur Hypertension Smoker Type 2 diabetes mellitus Surgical History S/P ORIF (open reduction internal fixation) fracture Hx of tonsillectomy Vitals/I&O/Wt Last Vital Signs Temp 97.9 F 04/02/24 16:30 Pulse 65 04/02/24 17:15 Resp 13 04/02/24 17:15 BP 131/60 04/02/24 17:15 Pulse Ox 93 04/02/24 17:15 O2 Del Method Nasal Cannula 04/02/24 11:21 O2 Flow Rate 5 04/02/24 08:23 FiO2 35 04/01/24 20:01 04/02/24 04/02/24 04/02/24 06:59 14:59 22:59 Intake Total 480 / 480 70 / 550 Output Total 1450 / 3400 800 / 800 1100 / 1900 Balance -1450 / -2680 -320 / -320 -1030 / -1350 Weight last 48 hrs Weight 179 lb 3 oz Weight 183 lb Physical Exam 2 Narrative: General: alert, NAD HEENT: conj clear, EOMI, PERRL, mmm, Neck: supple, no meningismus, no subcutaneous crepitus noted Heme: no cervical LAP Respiratory: Inspection: No visible deformity of the chest wall Palpation: Trachea is mildly deviated to the right, bilateral symmetric expansion, no subcutaneous crepitus noted Percussion: Bilateral tympanic percussion note both anterior and posteriorly Auscultation: Bilateral mild diffuse crepitations Cardiovascular: rrr, nl s1s2, no mrg Abdomen: soft, nt, nd, no r/g, bs+ Extremities: pulses +, no edema, no c/c : no CVA tenderness Skin: intact, no rash MSK: no back or neck pain Neurologic: grossly intact Urinary Catheter Management: Obrien: Cath Placed During This Visit: yes Reason for Continuing Indwelling Catheter: Accurate Measurement of Urinary Output in Critically Ill Patients Urinary Catheter Date of Insertion: 03/24/24 Urinary Catheter Time of Insertion: 05:45 Data 04/02/24 04:35 04/02/24 04:35 Other Labs: Radiology Impressions Chest CTA 03/24/24 12:06 IMPRESSION: 1. No pulmonary embolism 2. Dense diffuse bilateral pneumonic infiltrates as above. Associated mild mediastinal adenopathy and pronounced bilateral hilar adenopathy.. Previously seen subpleural 9 mm RLL nodule is unchanged. 3. Chronic findings as above Femur X-Ray 03/26/24 11:11 IMPRESSION: 1. Healed fracture of the lower humerus with plate and screw fixation. No acute fracture or hardware complication noted. Knee X-Ray 03/26/24 11:11 IMPRESSION: 1. 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 2. No fracture. Chest X-Ray 03/28/24 10:26 IMPRESSION: 1. Bilateral pulmonary infiltrates showing no change. Chest/Abdomen/Pelvis CT 04/02/24 08:35 IMPRESSION: 1. Advanced dense consolidations throughout both lungs. Consolidations are superimposed on additional opacifications consistent with UIP. It is difficult to identify the extent of acute on chronic disease. Very similar to 03/24/2024. Significant progression and predominantly new honeycombing and bronchiectasis as compared to 2019. 2. New moderate pneumomediastinum since 03/24/2024. Pneumomediastinum dissects into the RIGHT neck. 3. Cholelithiasis. No evidence for acute cholecystitis. 4. No appendicitis. 5. No GI tract obstruction. 6. No free fluid or free air. Chest CT 04/02/24 13:59 IMPRESSION: 1. No esophageal rupture. Gastrografin contrast is identified in the esophagus and stomach without leak into the mediastinum. 2. Pneumomediastinum is unchanged mostly in the retrosternal anterior mediastinum. 3. Severe emphysematous changes. Extensive end-stage honeycomb fibrosis, bronchiectasis and diffuse airspace opacity in the lungs is unchanged. This diffuse airspace density, which may represent pneumonia, pulmonary edema, or inflammatory pneumonitis such as ARDS. COMMENTS: The presence of pulmonary emphysema on CT is an independent risk factor for lung cancer. In the absence of a history or active diagnosis of lung cancer, it is recommended that this patient with emphysema be evaluated for enrollment in a low dose CT lung cancer screening program. Laboratory Results WBC 16.28 10^3/uL (3.29-11.43) H 04/02/24 04:35 RBC 4.70 10^6/uL (3.85-5.65) 04/02/24 04:35 Hgb 12.90 g/dL (11.27-16.99) 04/02/24 04:35 Hct 38.4 % (37-53) 04/02/24 04:35 MCV 81.7 fl (82-101) L 04/02/24 04:35 MCH 27.4 pg (27-33) 04/02/24 04:35 MCHC 33.6 g/dL (30-55) 04/02/24 04:35 RDW 13.2 % (12.1-15.1) 04/02/24 04:35 Plt Count 432 10^3/cmm (157-399) H 04/02/24 04:35 MPV 9.0 fL (7.4-10.4) 04/02/24 04:35 Neut % (Auto) 87.4 % 04/02/24 04:35 Lymph % (Auto) 7.6 % 04/02/24 04:35 Faulkner % (Auto) 4.2 % 04/02/24 04:35 Eos % (Auto) 0.0 % 04/02/24 04:35 Baso % (Auto) 0.1 % 04/02/24 04:35 Neut # (Auto) 14.24 10^3/uL (1.8-7.7) H 04/02/24 04:35 Lymph # (Auto) 1.2 10^3/uL (0.8-4.8) 04/02/24 04:35 Faulkner # (Auto) 0.7 10^3/uL (0.2-0.9) 04/02/24 04:35 Eos # (Auto) 0.0 10^3/uL (0.0-0.8) 04/02/24 04:35 Baso # (Auto) 0.0 10^3/uL (0.0-0.1) 04/02/24 04:35 Nucleated RBC % (auto) 0 % 04/02/24 04:35 Nucleated RBCs # 0.0 /100WBC 04/02/24 04:35 D-Dimer 2.63 ug/mLFEU (0-0.59) H 04/02/24 15:42 Specimen Type Arterial 03/24/24 14:53 Sample Site Radial, right 03/24/24 14:53 ABG pH 7.40 (7.35-7.45) 03/24/24 14:53 ABG pCO2 33.7 mmHg (35-45) L 03/24/24 14:53 ABG pO2 134.0 mmHg (80.0-100.0) H 03/24/24 14:53 ABG HCO3 20.8 mmol/L (22-26) L 03/24/24 14:53 ABG O2 Saturation 99.7 03/24/24 14:53 ABG Base Excess -3.4 mmol/L (-2.0-2.0) L 03/24/24 14:53 Ozzie Test Pos 03/24/24 14:53 A-a O2 Gradient Not Reportable 03/24/24 14:53 Hematocrit 34.6 % (42-52) L 03/24/24 14:53 Hgb O2 Saturation 97.5 % (95-100) 03/24/24 14:53 Carboxyhemoglobin 1.8 %THgb (0.4-20.1) 03/24/24 14:53 Methemoglobin 0.4 % (0.4-1.5) 03/24/24 14:53 Total Hemoglobin 11.3 g/dL (14-18) L 03/24/24 14:53 Sodium 135.0 mmol/L (131-143) 03/24/24 14:53 Potassium 3.7 mmol/L (3.5-5.0) 03/24/24 14:53 Glucose 109.0 mg/dL (70-115) 03/24/24 14:53 Ionized Calcium 1.2 mmol/L (1.1-1.4) 03/24/24 14:53 O2 Delivery Device Nrb 03/24/24 14:53 O2 Liters/Min 12.0 % 03/24/24 14:53 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 [employer] 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 ID [place] 03/24/24 14:53 Sodium 131 mmol/L (136-145) L 04/02/24 04:35 Potassium 4.9 mmol/L (3.5-5.1) 04/02/24 04:35 Chloride 96 mmol/L (98-107) L 04/02/24 04:35 Carbon Dioxide 25 mmol/L (22-29) 04/02/24 04:35 Anion Gap 14.9 (5-19) 04/02/24 04:35 BUN 33 mg/dL (8-23) H 04/02/24 04:35 Creatinine 0.8 mg/dL (0.7-1.2) 04/02/24 04:35 GFR Calculation Not Reportable 04/02/24 04:35 Glucose 140 mg/dL (65-115) H 04/02/24 04:35 POC Glucose 175 mg/dL (70-110) H 04/02/24 17:05 Estimat Average Glucose 120 03/25/24 03:03 Hemoglobin A1c 5.8 % (4.0-6.0) 03/25/24 03:03 Calculated Osmolality 282 mOsm/kg (285-295) L 04/02/24 04:35 Lactic Acid 1.3 mmol/L (0.5-2.2) 03/24/24 12:04 Calcium 8.7 mg/dL (8.5-10.5) 04/02/24 04:35 Phosphorus 3.2 mg/dL (2.5-4.5) 03/25/24 03:03 Magnesium 2.5 mg/dL (1.7-2.3) H 04/02/24 04:35 Iron 18 ug/dL (59-158) L 03/24/24 14:09 TIBC 213 mcg/dl 03/24/24 14:09 % Saturation 8.4 % (20-50) L 03/24/24 14:09 Unsat Iron Binding 195 ug/dL (112-347) 03/24/24 14:09 Total Bilirubin 0.3 mg/dL (0.15-1.2) 03/31/24 02:24 AST 42 U/L (0-40) H 03/31/24 02:24 ALT 69 U/L (0-41) H 03/31/24 02:24 Alkaline Phosphatase 104 U/L (40-130) 03/31/24 02:24 Lactate Dehydrogenase 170 U/L (135-225) 04/02/24 15:42 Troponin T Baseline 48 ng/L (0-15) H 03/24/24 12:04 Troponin T 120 Minute 46.65 ng/L (0-15) H 03/24/24 14:09 Delta Troponin T -1.35 ABS# (0-10) L 03/24/24 14:09 Troponin T Hi Sens 6Hr 43.21 ng/L (0-15) H 03/24/24 19:00 Troponin T Hi Sens 6Hr Delta -4.79 ng/L (0-12) L 03/24/24 19:00 C-Reactive Protein 3.0 mg/L (0.0-4.9) 03/24/24 12:04 NT-Pro-B Natriuret Pep 1546 pg/mL (0-450) H 03/28/24 05:10 Total Protein 6.6 g/dL (6.6-8.7) 03/31/24 02:24 Albumin 2.9 g/dL (3.5-5.2) L 03/31/24 02:24 Globulin 3.7 g/dL (1.3-4.6) 03/31/24 02:24 Triglycerides 59 mg/dL (0-150) 03/25/24 03:03 Cholesterol 108 mg/dL (0-200) 03/25/24 03:03 LDL Cholesterol, Calc 56 mg/dL (50-129) 03/25/24 03:03 HDL Cholesterol 40 mg/dL (60-100) L 03/25/24 03:03 LDL/HDL Ratio 1.40 RATIO (0.00-3.22) 03/25/24 03:03 Cholesterol/HDL Ratio 2.70 mg/dL (1.0-5.00) 03/25/24 03:03 Vitamin B12 268 pg/mL (232-1245) 03/24/24 14:09 Folate 4.7 ng/mL (4.5-32.2) 03/25/24 03:03 Procalcitonin 0.08 ng/mL (0-0.5) 04/02/24 15:42 TSH 2.17 uIU/mL (0.27-4.20) 03/24/24 14:09 Urine Color Yellow (Yellow) 03/24/24 19:20 Urine Appearance Cloudy (CLEAR) A 03/24/24 19:20 Urine pH 6.5 (5-7) 03/24/24 19:20 Ur Specific Willet 1.010 (1.005-1.030) 03/24/24 19:20 Urine Protein Trace (Negative) 03/24/24 19:20 Urine Glucose (UA) Trace (Normal) H 03/24/24 19:20 Urine Ketones 1+ (Negative) H 03/24/24 19:20 Urine Blood 2+ (Negative) H 03/24/24 19:20 Urine Nitrate Negative (Negative) 03/24/24 19:20 Urine Bilirubin Neg (Negative) 03/24/24 19:20 Urine Urobilinogen Neg mg/dL (Negative) 03/24/24 19:20 Ur Leukocyte Esterase 2+ (Negative) H 03/24/24 19:20 Urine RBC 5-10 /hpf (0-2) H 03/24/24 19:20 Urine WBC 25-40 /hpf (0-5) H 03/24/24 19:20 Ur Squamous Epith Cells 0-4 /hpf (0-5) H 03/24/24 19:20 Amorphous Sediment Not Reportable 03/24/24 19:20 Urine Bacteria Trace /hpf (NONE) 03/24/24 19:20 Urine Mucus Trace /hpf 03/24/24 19:20 Vancomycin Trough 13.7 ug/mL (10-15) 03/26/24 04:15 Adenovirus (PCR) Not detected (NOT DETECT) 03/24/24 16:45 C. pneumoniae DNA (PCR) Not detected (NOT DETECT) 03/24/24 16:45 Coronavirus 229E (PCR) Not detected (NOT DETECT) 03/24/24 16:45 Human Metapneumovir PCR Not detected (NOT DETECT) 03/24/24 16:45 Influenza A (H1) PCR Not detected (NOT DETECT) 03/24/24 16:45 Influ A (H1/09) PCR Not detected (NOT DETECT) 03/24/24 16:45 Influenza A (H3) PCR Not detected (NOT DETECT) 03/24/24 16:45 Influenza Type A (PCR) Not detected (NOT DETECT) 03/24/24 16:45 Influenza Type B (PCR) Not detected (NOT DETECT) 03/24/24 16:45 M. pneumoniae (PCR) Not detected (NOT DETECT) 03/24/24 16:45 Parainfluenza 1 (PCR) Not detected (NOT DETECT) 03/24/24 16:45 Parainfluenza 2 (PCR) Not detected (NOT DETECT) 03/24/24 16:45 Parainfluenza 3 (PCR) Not detected (NOT DETECT) 03/24/24 16:45 Parainfluenza 4 (PCR) Not detected (NOT DETECT) 03/24/24 16:45 RSV Type A (PCR) Not detected (NOT DETECT) 03/24/24 16:45 RSV Type B (PCR) Not detected (NOT DETECT) 03/24/24 16:45 Entero/Rhino (PCR) Not detected (NOT DETECT) 03/24/24 16:45 SARS-CoV-2 (PCR) Not detected (NOT DETECT) 03/24/24 16:45 MRSA (PCR) Not detected (NOT DETECTED) 03/24/24 19:20 A&P Assessment and plan (1) Acute hypoxemic respiratory failure: This patient with underlying degenerative arthritis, pulmonary fibrosis with subpleural honeycombing worsening compared to 2019; admitted for hypoxic respiratory failure with superimposed groundglass opacities suspicious for pneumonia. He is currently adequately treated for bacterial pneumonia with the meropenem as well as azithromycin. Sputum cultures, bacterial antigens, Legionella antigen were negative. Today CT chest revealed persistent bilateral diffuse infiltrates-he does not have any risk factors for immunosuppression; his LDH is normal, beta D glucan is pending; recommended to send PCP PCR although less likely Upon review of 2019 CT chest-there is minimal subpleural honeycombing in the right lung base-comparatively CT scans during this admission have diffuse interstitial pattern definitely appears to be worsening however with superimposing groundglass opacities and consolidations it is difficult to interpret the extent of progression. Given his occupation [employer] throughout his life-it appears wood dust exposure is a significant risk factor. However he is also complaining of history of degenerative arthritis, bilateral hand joint stiffness-I am going to send for CTD panel to rule out underlying inflammatory diseases contributing to interstitial lung disease Patient may need PFTs as outpatient to check for the amount of restriction Patient reported he has been bedbound for more than 5 years which could contribute to his severe deconditioning. He needs aggressive physical therapy and pulmonary toileting. Overall given his high FiO2 requirement and diffuse infiltrates-will cover with Bactrim until PCP PCR results are available Most plausible etiology looks like acute exacerbation of interstitial lung disease; recommended to continue Solu-Medrol 40 Mg daily for at least 4 to 6 weeks (2) Acquired pneumomediastinum: CT chest today showed moderate pneumomediastinum with no evidence of pneumothorax Gastrografin study did not show any esophageal/gastric leak On physical examination-there is no subcutaneous crepitus over chest wall or right side of the neck Continue oxygen supplementation and monitor with serial chest x-rays (3) Severe pulmonary hypertension: Echocardiogram showed PASP > 65 with normal EF; there is severe TR; normal RV size and systolic function.; Appears this is secondary to group 3-interstitial lung disease Patient may have chronic hypoxia-however he reported of not being on oxygen Currently he is net -7 L since admission; can give Lasix 20 Mg daily with potassium supplementation as needed; supplemental oxygen to keep saturations greater than 89% (4) Pulmonary interstitial fibrosis: As discussed above we will obtain CTD panel to rule out underlying inflammatory disease (5) Wood-dust pneumonitis: (6) Stiffness of joints of both hands: (7) Physical deconditioning: Consult Attestations 2 Medical Necessity Statement: Close ICU monitoring for hypoxic respiratory failure and pneumomediastinum Time Spent in Patient Care: Greater than 35 minutes (>than 50% of time spent in counselling and/or direct pt care on unit) . Critical Care Time: This patient has a high probability of clinically significant, sudden or life threatening deterioration of the patient's (pulmonary, cardiac, renal) systems required my full, direct attention, the highest level of physician preparedness for urgent intervention and personal management. I managed/supervised life or organ supporting interventions that required frequent physician assessment. I devoted my full attention in the ICU to the direct care of this patient for the period of time indicated above. Time I spent with family or surrogate(s) is included only if the patient was incapable of providing necessary information or participating in decision making. This time includes the following services provided: Telemetry review Mechanical Ventilation Hemodynamic interpretation, assessment and management Review and interpretation of CXR Review and interpretation of lab values Review and interpretation of microbiologic data and culture results Review of medications and administration Review and interpretation of Nutrition requirements and management Discussion of management with other consultants and services Clinical update to family members [x] Data and vital sign review and interpretation [x] Patient assessment, examination and intervention [x] Documentation [x] Medication orders and management Time spent for teaching as well as performing procedures are billed separately and is not included in this note Coding Level of Care Code Acute Code for [facility] Fwd Diagnoses Acute hypoxemic respiratory failure J96.01 Acquired pneumomediastinum J98.2 Severe pulmonary hypertension I27.20 Pulmonary interstitial fibrosis J84.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 Time Spent (min) 63
[2024-04-02] MEDS: SULFAMETHOXAZOLE TRIMETH IV (20:12)
[2024-04-02] MEDS: DEXTROSE 5% IV (20:12)
[2024-04-03] VITALS (31 sets, daily range): BP systolic 106–134; BP diastolic 48–69; PULSE 56–80; RESP 10–27; TEMP 36.1–36.9; O2SAT 89–99
[2024-04-03] MEDS: ipratropium-albuterol 3 mL Neb INHALATION ×4 (01:46→19:34)
[2024-04-03] MEDS: SULFAMETHOXAZOLE TRIMETH IV ×2 (03:33→15:59)
[2024-04-03] MEDS: DEXTROSE 5% IV ×2 (03:33→15:59)
[2024-04-03 03:40] LABS: Basophils % 0.1 %; Hematocrit 43.6 % (37-53); Lymphocytes # 0.7 10^3/uL (0.8-4.8); Lymphocytes % 7.7 %; Mean Corpuscular HGB Conc 33.7 g/dL (30-55); Mean Corpuscular Hemoglobin 27.4 pg (27-33); Mean Corpuscular Volume 81.2 fl (82-101); Monocytes # 0.3 10^3/uL (0.2-0.9); Monocytes % 2.7 %; Neutrophils # 8.32 10^3/uL (1.8-7.7); Neutrophils % 88.8 %; Nucleated Red Blood Cells % 0 %; Platelet Count 452 10^3/cmm (157-399); Red Blood Count 5.37 10^6/uL (3.85-5.65); Red Cell Distribution Width 13.2 % (12.1-15.1); White Blood Count 9.37 10^3/uL (3.29-11.43)
[2024-04-03 03:51] LABS: Erythrocyte Sedimentation Rate 28 mm/hr (0-10)
[2024-04-03 03:56] LABS: Anion Gap 16.9 (5-19); Blood Urea Nitrogen 37 mg/dL (8-23); C Reactive Protein 23.8 mg/L (0.0-4.9); Calcium 9.5 mg/dL (8.5-10.5); Carbon Dioxide 26 mmol/L (22-29); Chloride 91 mmol/L (98-107); Creatinine Clr Calc Pharmacy 74.1914; Glucose 167 mg/dL (65-115); Magnesium 2.4 mg/dL (1.7-2.3); Osmolality Calculated 280 mOsm/kg (285-295); Potassium 4.9 mmol/L (3.5-5.1); Sodium 129 mmol/L (136-145)
[2024-04-03] MEDS: heparin 5,000 unit/mL INJ 1 mL 5000 UNIT SUBCUT ×2 (05:59→17:36)
[2024-04-03] MEDS: levothyroxine 200 mcg Tablet PO (05:59)
--- NOTE | 2024-04-03 08:09 | P.PN_ITS ---
Subjective 2 Subjective: seen today on 6L NC says i feel worse than before on bactrim discussed code status and addressed patients questions Vitals/I&O/Wt Last Vital Signs Temp 97.8 F 04/03/24 04:00 Pulse 61 04/03/24 05:46 Resp 21 H 04/03/24 04:00 BP 123/59 04/03/24 04:00 Pulse Ox 98 04/03/24 04:00 O2 Del Method Nasal Cannula 04/03/24 01:49 O2 Flow Rate 6 04/03/24 01:49 FiO2 35 04/01/24 20:01 04/02/24 04/03/24 04/03/24 22:59 06:59 14:59 Intake Total 190 / 670 534 / 1204 Output Total 2150 / 2950 450 / 3400 Balance -1960 / -2280 84 / -2196 Weight last 48 hrs Weight 79.968 kg Weight 79.968 kg Weight 81.278 kg Physical Exam 2 Narrative: General: No acute distress, AO x3, on nasal canula HEENT: PERRLA, pupils bilaterally equal and reactive Chest: Bilateral normal vesicular breath sounds all over lung almaguer, crackles improved. CVS: S1-S2 regular, no murmurs, tachycardia, no gallops, no rubs Abdomen: Soft, nontender, no organomegaly, bowel sounds present Neuro: Able to move all 4 extremities. Urinary Catheter Management: Obrien: Cath Placed During This Visit: yes Reason for Continuing Indwelling Catheter: Accurate Measurement of Urinary Output in Critically Ill Patients Urinary Catheter Date of Insertion: 03/24/24 Urinary Catheter Time of Insertion: 05:45 Data 04/03/24 03:31 04/03/24 03:31 Micro: Microbiology 04/02/24 20:30 Legionella Urinary Antigen - Final Urine Catheterized A&P Assessment and plan (1) Acute hypoxemic respiratory failure: Most likely in setting of bilateral pneumonia along with baseline severe pulmonary hypertension as per echocardiogram. Appreciate CTA negative for pulmonary embolism Oxygen supplementation keeping saturation over 90%. Switch over to high flow nasal cannula decreased to work of breathing. BiPAP nightly. Out of bed to chair. Aggressive pulmonary toilet with I-S and Acapella. Will plan to add chest vest twice daily. Pulmicort twice daily, DuoNebs every 6 hour. Continue Solu-Medrol 20 mg twice daily for 1 more day. Will transition to oral prednisone in a.m. for taper. Patient continues to have good urine output. Hold off on further diuresis for now. Repeat BMP in afternoon. Sputum culture growing yeast. Continue with oral fluconazole to finish a 7-day course. Given slow improvement further workup including beta D glucan. LDH normal. Will continue to follow. Continue with aggressive pulmonary toilet. Continue with I-S and Acapella along with chest vest. Out of bed to chair. (2) Community acquired pneumonia: Sputum culture pending, MRSA swab negative. Respiratory viral panel, urine Legionella, bacterial antigen negative. Continue with meropenem to finish a 7-day course on 03/31. Last day of azithromycin on 03/28. MRSA negative so vancomycin discontinued. (3) Sepsis: Resolving. Present on admission. SIRS: Tachycardic, leukocytosis Source: Pneumonia End organ damage: Acute respiratory failure Lactic acid within normal limits Patient did receive full 30 mL/kg BW. Monitor blood pressures. Keep mean artery pressure 65 mmHg. (4) Type 2 diabetes mellitus: Diabetes rule out. A1c 5.8. Insulin sliding scale as patient is on high-dose steroids. (5) Hypertension: Goal blood pressure less than 140/90 mmHg. Takes losartan 12.5 mg, amlodipine 10 mg daily at home. For now we will continue to hold off on losartan. Continue with home dose of amlodipine. Uptitrate as per goal blood pressures. Echocardiogram shows EF 55 to 60%, grade 1 diastolic dysfunction, moderate TR, RVSP of 60 mmHg with severe pulmonary hypertension, mild to moderate AI. (6) Severe pulmonary hypertension: (7) Physical deconditioning: Plan Continue chronic home medications including levothyroxine, Celexa, atorvastatin, baby aspirin. CODE STATUS: Discussed in detail with the patient. Full code Started on clear liquid diet. If tolerating well will transition to regular diet by night. Protonix OPD prophylaxis Heparin 5000 every 12 hourly for DVT prophylaxis Physical therapy. Out of bed to chair. Patient states he is usually bedbound as prescribed by an orthopedic surgeon on 7 years ago after femur fracture ORIF. He states he usually transitions from bed to chair and tries to be nonweightbearing. X-ray femur left leg, x-ray right knee. Encourage patient to be out of bed to chair and ambulate as with physical therapy. Patient is agreeable. Plan for today 04/03: Antibiotics completed. Continue with fluconazole to finish a 7-day course as well. Continues to have good urine output. Echocardiogram showed severe pulmonary hypertension. order lasix 40 iv daily Continue fluid restriction of less than 1500 cc. Blood pressure stable. Continue with current antihypertensive. Continue with aggressive pulmonary toilet with chest vest. Counseled patient detail about continuous extensive workup with incentive spirometry to improve lung functions. Patient verbalized understanding. Pulm consulted. Appreciate recs pt is chronically bed bound. he states he normally does not ambulate. He would like to go home. Discharge plan: Home o2 eval today, plan to possibly go home in am check labs in AM ct chest abd pelvis completed. Reveals pneumomediastinum follow serial chest xray daily pcp sputum to be sent place on bactrim IV check BMP bid continue solumedrol 40 bid for 4-6 weeks check vasculitis workup sputum gm stain culture Attestations 2 Medical Necessity Statement*: Requires further hospitalization for management of hypoxic respiratory failure in setting of physical deconditioning in a patient who was admitted with bilateral community-acquired pneumonia, severe pulmonary hypertension as patient remains on high oxygen supplementation with frequent episodes of decompensation with minimal ambulation Diagnoses Acute hypoxemic respiratory failure J96.01 Community acquired pneumonia J18.9 Sepsis A41.9 Type 2 diabetes mellitus E11.9 Hypertension I10 Severe pulmonary hypertension I27.20 Physical deconditioning R53.81
[2024-04-03 08:39] LABS: Glucose Point of Care 290 mg/dL (70-110)
[2024-04-03] MEDS: budesonide 0.5 mg/2 mL Neb INHALATION ×2 (08:46→19:34)
[2024-04-03] MEDS: methylPREDNISolone sod succ 40 mg/mL INJ IVP (08:50)
[2024-04-03] MEDS: insulin lispro 100 unit/1 mL SUBCUT ×3 (08:50→20:43)
--- NOTE | 2024-04-03 09:43 | XRR_ITS ---
PROCEDURE INFORMATION: Exam: XR Chest Exam date and time: 04/03/2024 9:49 AM Age: 78 years old Clinical indication: Condition or disease; Other: Pneumomediastinum TECHNIQUE: Imaging protocol: Radiologic exam of the chest. Views: 1 view. COMPARISON: 1. CT chest wo con [id number] 04/02/2024 4:08 PM 2. CR XR chest 1V portable [id number] 03/28/2024 10:55 AM FINDINGS: Lungs: Stable [id number]-right lower lung predominant reticulation in keeping with known extensive fibrotic change. Pleural spaces: No substantial pleural effusion or pneumothorax. Heart/Mediastinum: No cardiomegaly. No appreciable pneumomediastinum. Bones/joints: Degenerative change along the spine and acromioclavicular joints. XR/XR chest 1V portable [id number] IMPRESSION: 1. No appreciable pneumomediastinum. 2. Stable abnormal lung findings in keeping with known fibrosis.
[2024-04-03] MEDS: nystatin 100,000 unit/mL UDC 5 mL 100000 UNIT PO ×4 (10:37→20:43)
[2024-04-03] MEDS: buPROPion SR (12 HR) 100 mg Tablet 200 MG PO ×2 (10:38→17:37)
[2024-04-03] MEDS: fluconazole 100 mg Tablet PO (10:38)
[2024-04-03] MEDS: amlodipine 10 mg Tablet PO (10:38)
[2024-04-03] MEDS: aspirin 81 mg EC Tablet PO (10:38)
[2024-04-03] MEDS: citalopram 20 mg Tablet PO (10:38)
[2024-04-03] MEDS: tamsulosin 0.4 mg Capsule 0.400000000000000022 MG PO (10:39)
[2024-04-03] MEDS: gabapentin 300 mg Capsule PO ×3 (10:39→20:43)
--- NOTE | 2024-04-03 13:32 | P.PN_ITS ---
Subjective 2 Subjective: Clinically unchanged-still requiring 6 L supplemental oxygen Chest x-ray no evidence of pneumomediastinum-patient denied any chest pain-no evidence of subcutaneous crepitus over chest wall or neck area -ABG on 4 L showed PaO2 55-PF ratio 150 Recommended to send PCP PCR induced sputum cultures -Will continue Bactrim for now Medications: Reviewed: Yes Vitals/I&O/Wt Last Vital Signs Temp 98 F 04/03/24 08:00 Pulse 73 04/03/24 13:15 Resp 20 H 04/03/24 13:05 BP 127/58 04/03/24 11:00 Pulse Ox 98 04/03/24 13:05 O2 Del Method Nasal Cannula 04/03/24 13:05 O2 Flow Rate 5 04/03/24 13:05 FiO2 35 04/01/24 20:01 04/02/24 04/03/24 04/03/24 22:59 06:59 14:59 Intake Total 190 / 670 534 / 1204 934 / 934 Output Total 2150 / 2950 450 / 3400 Balance -1960 / -2280 84 / -2196 934 / 934 Weight last 48 hrs Weight 176 lb 4.8 oz Weight 176 lb 4.8 oz Weight 179 lb 3 oz Physical Exam 2 Narrative: General: alert, NAD HEENT: conj clear, EOMI, PERRL, mmm, Neck: supple, no meningismus, no subcutaneous crepitus noted Heme: no cervical LAP Respiratory: Inspection: No visible deformity of the chest wall Palpation: Trachea is mildly deviated to the right, bilateral symmetric expansion, no subcutaneous crepitus noted Percussion: Bilateral tympanic percussion note both anterior and posteriorly Auscultation: Bilateral mild diffuse crepitations Cardiovascular: rrr, nl s1s2, no mrg Abdomen: soft, nt, nd, no r/g, bs+ Extremities: pulses +, no edema, no c/c : no CVA tenderness Skin: intact, no rash MSK: no back or neck pain Neurologic: grossly intact Urinary Catheter Management: Obrien: Cath Placed During This Visit: yes Reason for Continuing Indwelling Catheter: Accurate Measurement of Urinary Output in Critically Ill Patients Urinary Catheter Date of Insertion: 03/24/24 Urinary Catheter Time of Insertion: 05:45 Data 04/03/24 03:31 04/03/24 14:27 Other Labs: Radiology Impressions Chest CTA 03/24/24 12:06 IMPRESSION: 1. No pulmonary embolism 2. Dense diffuse bilateral pneumonic infiltrates as above. Associated mild mediastinal adenopathy and pronounced bilateral hilar adenopathy.. Previously seen subpleural 9 mm RLL nodule is unchanged. 3. Chronic findings as above Femur X-Ray 03/26/24 11:11 IMPRESSION: 1. Healed fracture of the lower humerus with plate and screw fixation. No acute fracture or hardware complication noted. Knee X-Ray 03/26/24 11:11 IMPRESSION: 1. 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 2. No fracture. Chest/Abdomen/Pelvis CT 04/02/24 08:35 IMPRESSION: 1. Advanced dense consolidations throughout both lungs. Consolidations are superimposed on additional opacifications consistent with UIP. It is difficult to identify the extent of acute on chronic disease. Very similar to 03/24/2024. Significant progression and predominantly new honeycombing and bronchiectasis as compared to 2019. 2. New moderate pneumomediastinum since 03/24/2024. Pneumomediastinum dissects into the RIGHT neck. 3. Cholelithiasis. No evidence for acute cholecystitis. 4. No appendicitis. 5. No GI tract obstruction. 6. No free fluid or free air. Chest CT 04/02/24 13:59 IMPRESSION: 1. No esophageal rupture. Gastrografin contrast is identified in the esophagus and stomach without leak into the mediastinum. 2. Pneumomediastinum is unchanged mostly in the retrosternal anterior mediastinum. 3. Severe emphysematous changes. Extensive end-stage honeycomb fibrosis, bronchiectasis and diffuse airspace opacity in the lungs is unchanged. This diffuse airspace density, which may represent pneumonia, pulmonary edema, or inflammatory pneumonitis such as ARDS. COMMENTS: The presence of pulmonary emphysema on CT is an independent risk factor for lung cancer. In the absence of a history or active diagnosis of lung cancer, it is recommended that this patient with emphysema be evaluated for enrollment in a low dose CT lung cancer screening program. Chest X-Ray 04/03/24 09:43 IMPRESSION: 1. No appreciable pneumomediastinum. 2. Stable abnormal lung findings in keeping with known fibrosis. Laboratory Results WBC 9.37 10^3/uL (3.29-11.43) 04/03/24 03:31 RBC 5.37 10^6/uL (3.85-5.65) 04/03/24 03:31 Hgb 14.70 g/dL (11.27-16.99) 04/03/24 03:31 Hct 43.6 % (37-53) 04/03/24 03:31 MCV 81.2 fl (82-101) L 04/03/24 03:31 MCH 27.4 pg (27-33) 04/03/24 03:31 MCHC 33.7 g/dL (30-55) 04/03/24 03:31 RDW 13.2 % (12.1-15.1) 04/03/24 03:31 Plt Count 452 10^3/cmm (157-399) H 04/03/24 03:31 MPV 9.0 fL (7.4-10.4) 04/03/24 03:31 Neut % (Auto) 88.8 % 04/03/24 03:31 Lymph % (Auto) 7.7 % 04/03/24 03:31 [place] % (Auto) 2.7 % 04/03/24 03:31 Eos % (Auto) 0.0 % 04/03/24 03:31 Baso % (Auto) 0.1 % 04/03/24 03:31 Neut # (Auto) 8.32 10^3/uL (1.8-7.7) H 04/03/24 03:31 Lymph # (Auto) 0.7 10^3/uL (0.8-4.8) L 04/03/24 03:31 [place] # (Auto) 0.3 10^3/uL (0.2-0.9) 04/03/24 03:31 Eos # (Auto) 0.0 10^3/uL (0.0-0.8) 04/03/24 03:31 Baso # (Auto) 0.0 10^3/uL (0.0-0.1) 04/03/24 03:31 Nucleated RBC % (auto) 0 % 04/03/24 03:31 Nucleated RBCs # 0.0 /100WBC 04/03/24 03:31 ESR 28 mm/hr (0-10) H 04/03/24 03:31 D-Dimer 2.63 ug/mLFEU (0-0.59) H 04/02/24 15:42 Specimen Type Arterial 04/03/24 17:25 Sample Site Brachial, right 04/03/24 17:25 ABG pH 7.48 (7.35-7.45) H 04/03/24 17:25 ABG pCO2 31.2 mmHg (35-45) L 04/03/24 17:25 ABG pO2 55.4 mmHg (80.0-100.0) L 04/03/24 17:25 ABG PO2/FiO2 Ratio 0 04/03/24 17:25 ABG HCO3 23.5 mmol/L (22-26) 04/03/24 17:25 ABG O2 Saturation 90.1 04/03/24 17:25 ABG Base Excess 0.8 mmol/L (-2.0-2.0) 04/03/24 17:25 Ozzie Test N/a 04/03/24 17:25 A-a O2 Gradient 20.8 mmHg (5-10) H 04/03/24 17:25 Hematocrit 41.2 % (42-52) L 04/03/24 17:25 Hgb O2 Saturation 88.6 % (95-100) L 04/03/24 17:25 Carboxyhemoglobin 1.1 %THgb (0.4-20.1) 04/03/24 17:25 Methemoglobin 0.6 % (0.4-1.5) 04/03/24 17:25 Total Hemoglobin 13.4 g/dL (14-18) L 04/03/24 17:25 Sodium 121.0 mmol/L (131-143) L 04/03/24 17:25 Potassium 4.7 mmol/L (3.5-5.0) 04/03/24 17:25 Glucose 330.0 mg/dL (70-115) H 04/03/24 17:25 Ionized Calcium 1.2 mmol/L (1.1-1.4) 04/03/24 17:25 O2 Delivery Device Nc 04/03/24 17:25 O2 Liters/Min 4.0 % 04/03/24 17:25 FiO2 36.0 % 04/03/24 17:25 Cabin Worker ID Gd 04/03/24 17:25 Sodium 123 mmol/L (136-145) L 04/03/24 14:27 Potassium 4.9 mmol/L (3.5-5.1) 04/03/24 14:27 Chloride 88 mmol/L (98-107) L 04/03/24 14:27 Carbon Dioxide 23 mmol/L (22-29) 04/03/24 14:27 Anion Gap 16.9 (5-19) 04/03/24 14:27 BUN 36 mg/dL (8-23) H 04/03/24 14:27 Creatinine 0.9 mg/dL (0.7-1.2) 04/03/24 14:27 GFR Calculation Not Reportable 04/03/24 14:27 Glucose 290 mg/dL (65-115) H 04/03/24 14:27 POC Glucose 213 mg/dL (70-110) H 04/03/24 20:19 Estimat Average Glucose 120 03/25/24 03:03 Hemoglobin A1c 5.8 % (4.0-6.0) 03/25/24 03:03 Calculated Osmolality 275 mOsm/kg (285-295) L 04/03/24 14:27 Lactic Acid 1.3 mmol/L (0.5-2.2) 03/24/24 12:04 Calcium 9.1 mg/dL (8.5-10.5) 04/03/24 14:27 Phosphorus 3.2 mg/dL (2.5-4.5) 03/25/24 03:03 Magnesium 2.4 mg/dL (1.7-2.3) H 04/03/24 03:31 Iron 18 ug/dL (59-158) L 03/24/24 14:09 TIBC 213 mcg/dl 03/24/24 14:09 % Saturation 8.4 % (20-50) L 03/24/24 14:09 Unsat Iron Binding 195 ug/dL (112-347) 03/24/24 14:09 Total Bilirubin 0.3 mg/dL (0.15-1.2) 03/31/24 02:24 AST 42 U/L (0-40) H 03/31/24 02:24 ALT 69 U/L (0-41) H 03/31/24 02:24 Alkaline Phosphatase 104 U/L (40-130) 03/31/24 02:24 Lactate Dehydrogenase 170 U/L (135-225) 04/02/24 15:42 Troponin T Baseline 48 ng/L (0-15) H 03/24/24 12:04 Troponin T 120 Minute 46.65 ng/L (0-15) H 03/24/24 14:09 Delta Troponin T -1.35 ABS# (0-10) L 03/24/24 14:09 Troponin T Hi Sens 6Hr 43.21 ng/L (0-15) H 03/24/24 19:00 Troponin T Hi Sens 6Hr Delta -4.79 ng/L (0-12) L 03/24/24 19:00 C-Reactive Protein 23.8 mg/L (0.0-4.9) H 04/03/24 03:31 NT-Pro-B Natriuret Pep 1546 pg/mL (0-450) H 03/28/24 05:10 Total Protein 6.6 g/dL (6.6-8.7) 03/31/24 02:24 Albumin 2.9 g/dL (3.5-5.2) L 03/31/24 02:24 Globulin 3.7 g/dL (1.3-4.6) 03/31/24 02:24 Triglycerides 59 mg/dL (0-150) 03/25/24 03:03 Cholesterol 108 mg/dL (0-200) 03/25/24 03:03 LDL Cholesterol, Calc 56 mg/dL (50-129) 03/25/24 03:03 HDL Cholesterol 40 mg/dL (60-100) L 03/25/24 03:03 LDL/HDL Ratio 1.40 RATIO (0.00-3.22) 03/25/24 03:03 Cholesterol/HDL Ratio 2.70 mg/dL (1.0-5.00) 03/25/24 03:03 Vitamin B12 268 pg/mL (232-1245) 03/24/24 14:09 Folate 4.7 ng/mL (4.5-32.2) 03/25/24 03:03 Procalcitonin 0.08 ng/mL (0-0.5) 04/02/24 15:42 TSH 2.17 uIU/mL (0.27-4.20) 03/24/24 14:09 Urine Color Yellow (Yellow) 03/24/24 19:20 Urine Appearance Cloudy (CLEAR) A 03/24/24 19:20 Urine pH 6.5 (5-7) 03/24/24 19:20 Ur Specific [place] 1.010 (1.005-1.030) 03/24/24 19:20 Urine Protein Trace (Negative) 03/24/24 19:20 Urine Glucose (UA) Trace (Normal) H 03/24/24 19:20 Urine Ketones 1+ (Negative) H 03/24/24 19:20 Urine Blood 2+ (Negative) H 03/24/24 19:20 Urine Nitrate Negative (Negative) 03/24/24 19:20 Urine Bilirubin Neg (Negative) 03/24/24 19:20 Urine Urobilinogen Neg mg/dL (Negative) 03/24/24 19:20 Ur Leukocyte Esterase 2+ (Negative) H 03/24/24 19:20 Urine RBC 5-10 /hpf (0-2) H 03/24/24 19:20 Urine WBC 25-40 /hpf (0-5) H 03/24/24 19:20 Ur Squamous Epith Cells 0-4 /hpf (0-5) H 03/24/24 19:20 Amorphous Sediment Not Reportable 03/24/24 19:20 Urine Bacteria Trace /hpf (NONE) 03/24/24 19:20 Urine Mucus Trace /hpf 03/24/24 19:20 Vancomycin Trough 13.7 ug/mL (10-15) 03/26/24 04:15 Rheumatoid Factor 14.0 IU/mL (0-14) 04/03/24 03:31 Adenovirus (PCR) Not detected (NOT DETECT) 03/24/24 16:45 C. pneumoniae DNA (PCR) Not detected (NOT DETECT) 03/24/24 16:45 Coronavirus 229E (PCR) Not detected (NOT DETECT) 03/24/24 16:45 Human Metapneumovir PCR Not detected (NOT DETECT) 03/24/24 16:45 Influenza A (H1) PCR Not detected (NOT DETECT) 03/24/24 16:45 Influ A (H1/09) PCR Not detected (NOT DETECT) 03/24/24 16:45 Influenza A (H3) PCR Not detected (NOT DETECT) 03/24/24 16:45 Influenza Type A (PCR) Not detected (NOT DETECT) 03/24/24 16:45 Influenza Type B (PCR) Not detected (NOT DETECT) 03/24/24 16:45 M. pneumoniae (PCR) Not detected (NOT DETECT) 03/24/24 16:45 Parainfluenza 1 (PCR) Not detected (NOT DETECT) 03/24/24 16:45 Parainfluenza 2 (PCR) Not detected (NOT DETECT) 03/24/24 16:45 Parainfluenza 3 (PCR) Not detected (NOT DETECT) 03/24/24 16:45 Parainfluenza 4 (PCR) Not detected (NOT DETECT) 03/24/24 16:45 RSV Type A (PCR) Not detected (NOT DETECT) 03/24/24 16:45 RSV Type B (PCR) Not detected (NOT DETECT) 03/24/24 16:45 Entero/Rhino (PCR) Not detected (NOT DETECT) 03/24/24 16:45 SARS-CoV-2 (PCR) Not detected (NOT DETECT) 03/24/24 16:45 MRSA (PCR) Not detected (NOT DETECTED) 03/24/24 19:20 Beta-(1,3)-D-Glucan 37 pg/ml 03/28/24 15:12 B-(1,3)-D-Glucan Intrp Negative (Negative) 03/28/24 15:12 Micro: Microbiology 04/02/24 20:30 Bacterial Antigens - Final Urine,Voided 04/02/24 20:30 Legionella Urinary Antigen - Final Urine Catheterized A&P Assessment and plan (1) Acute hypoxemic respiratory failure: This patient with underlying degenerative arthritis, pulmonary fibrosis with subpleural honeycombing worsening compared to 2019; admitted for hypoxic respiratory failure with superimposed groundglass opacities suspicious for pneumonia. He is currently adequately treated for bacterial pneumonia with the meropenem as well as azithromycin. Sputum cultures, bacterial antigens, Legionella antigen were negative. Today CT chest revealed persistent bilateral diffuse infiltrates-he does not have any risk factors for immunosuppression; his LDH is normal, beta D glucan is pending; recommended to send PCP PCR although less likely Upon review of 2019 CT chest-there is minimal subpleural honeycombing in the right lung base-comparatively CT scans during this admission have diffuse interstitial pattern definitely appears to be worsening however with superimposing groundglass opacities and consolidations it is difficult to interpret the extent of progression. Given his occupation [employer] throughout his life-it appears wood dust exposure is a significant risk factor. However he is also complaining of history of degenerative arthritis, bilateral hand joint stiffness-elevated ESR, CRP; Pending CTD panel to rule out underlying inflammatory diseases contributing to interstitial lung disease Patient may need PFTs as outpatient to check for the amount of restriction Patient reported he has been bedbound for more than 5 years which could contribute to his severe deconditioning. He needs aggressive physical therapy and pulmonary toileting. Overall given his high FiO2 requirement and diffuse infiltrates- started Bactrim however patient started becoming hyponatremic, LDH is normal and BD Glucan negative. PCP PCR pending. Most plausible etiology looks like acute exacerbation of interstitial lung disease; recommended to continue Solu-Medrol 40 Mg daily for at least 4 to 6 weeks (2) Acquired pneumomediastinum: CT chest today showed moderate pneumomediastinum with no evidence of pneumothorax Gastrografin study did not show any esophageal/gastric leak On physical examination-there is no subcutaneous crepitus over chest wall or right side of the neck Continue oxygen supplementation and monitor with serial chest x-rays (3) Severe pulmonary hypertension: Echocardiogram showed PASP > 65 with normal EF; there is severe TR; normal RV size and systolic function.; Appears this is secondary to group 3-interstitial lung disease Patient may have chronic hypoxia-however he reported of not being on oxygen Currently he is net -7 L since admission; can give Lasix 20 Mg daily with potassium supplementation as needed; supplemental oxygen to keep saturations greater than 89% (4) Pulmonary interstitial fibrosis: As discussed above we will obtain CTD panel to rule out underlying inflammatory disease (5) Wood-dust pneumonitis: (6) Stiffness of joints of both hands: (7) Physical deconditioning: Attestations 2 Medical Necessity Statement*: Close ICU monitoring for hypoxic respiratory failure and pneumomediastinum Time Spent in Patient Care: Greater than 35 minutes (>than 50% of time spent in counselling and/or direct pt care on unit) . Critical Care Time: This patient has a high probability of clinically significant, sudden or life threatening deterioration of the patient's (pulmonary, cardiac, renal) systems required my full, direct attention, the highest level of physician preparedness for urgent intervention and personal management. I managed/supervised life or organ supporting interventions that required frequent physician assessment. I devoted my full attention in the ICU to the direct care of this patient for the period of time indicated above. Time I spent with family or surrogate(s) is included only if the patient was incapable of providing necessary information or participating in decision making. This time includes the following services provided: Telemetry review Mechanical Ventilation Hemodynamic interpretation, assessment and management Review and interpretation of CXR Review and interpretation of lab values Review and interpretation of microbiologic data and culture results Review of medications and administration Review and interpretation of Nutrition requirements and management Discussion of management with other consultants and services Clinical update to family members [x] Data and vital sign review and interpretation [x] Patient assessment, examination and intervention [x] Documentation [x] Medication orders and management Time spent for teaching as well as performing procedures are billed separately and is not included in this note Coding Level of Care Code Acute Code for [facility] Fwd Diagnoses Acute hypoxemic respiratory failure J96.01 Acquired pneumomediastinum J98.2 Severe pulmonary hypertension I27.20 Pulmonary interstitial fibrosis J84.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 Time Spent (min) 56
[2024-04-03 15:10] LABS: Anion Gap 16.9 (5-19); Blood Urea Nitrogen 36 mg/dL (8-23); Calcium 9.1 mg/dL (8.5-10.5); Carbon Dioxide 23 mmol/L (22-29); Chloride 88 mmol/L (98-107); Glucose 290 mg/dL (65-115); Osmolality Calculated 275 mOsm/kg (285-295); Potassium 4.9 mmol/L (3.5-5.1); Sodium 123 mmol/L (136-145)
[2024-04-03] MEDS: FUROsemide 10 mg/mL SDV 4mL 40 MG IVP (15:45)
[2024-04-03 17:28] LABS: Glucose Point of Care 135 mg/dL (70-110)
[2024-04-03 17:28] LABS: Glucose Point of Care 165 mg/dL (70-110)
[2024-04-03 17:29] LABS: Glucose Point of Care 380 mg/dL (70-110)
[2024-04-03] MEDS: pantoprazole 40 mg SDV IVP (17:36)
[2024-04-03] MEDS: atorvastatin 40 mg Tablet 20 MG PO (17:37)
[2024-04-03] MEDS: sodium chloride 1 gm Tablet PO (17:37)
[2024-04-03 17:39] LABS: ABG PCO2 31.2 mmHg (35-45); ABG PH Result 7.48 (7.35-7.45); Alveolar-Arterial Oxygen Gradi 20.8 mmHg (5-10); Arterial Blood Gas Hematocrit 41.2 % (42-52); Base Excess ABG 0.8 mmol/L (-2.0-2.0); Blood Gas Operator Identificat GD; Blood Gas Sample Site Brachial, right; Blood Gas Sample Type Arterial; Carboxyhemoglobin 1.1 %THgb (0.4-20.1); HCO3 ABG 23.5 mmol/L (22-26); HGB O2 Sat 88.6 % (95-100); Ionized Calcium Level - ABG 1.2 mmol/L (1.1-1.4); Methemoglobin 0.6 % (0.4-1.5); Oxygen Device NC; Oxygen Saturation ABG 90.1; PO2 ABG 55.4 mmHg (80.0-100.0); PO2 FiO2 Ratio Arterial Blood 0; Potassium Level - ABG 4.7 mmol/L (3.5-5.0); Total Hemoglobin 13.4 g/dL (14-18)
--- NOTE | 2024-04-03 19:39 | PC.NURSE ---
Shift summary: Pt has remains resting in bed throughout the shift. Offers to get out of bed to chair declined. Offers to help turn and/or reposition declined. He did request to be scooted up in bed twice this shift for meals. He did decent eating his meals. He ate most of each meal. He called out being short of breath during breakfast. Pt encouraged to use pursed lip breathing and to stop and rest/breath between bites. He fared better doing this. Sinus rhythm noted on monitor. No changes in his O2 needs, 5lpm/NC entire shift. No crepitus noted with auscultation or palpating his chest and right side of neck, no complaints of pain. Lasix admin this afternoon. He had a total of 2375 of urine output this shift. No BM . No edema noted. His called twice to speak to him. Pt, and this nurse discussed his plan of care including possible LTAC for physical therapy and pulmonary rehab due to his deconditioned state. Both verbalized understanding.
[2024-04-03 19:40] LABS: Fungitell 1-3-B Glucan Assay 37 pg/ml; Interpretation Negative (Negative)
[2024-04-03 20:23] LABS: Glucose Point of Care 213 mg/dL (70-110)
[2024-04-04] VITALS (30 sets, daily range): BP systolic 108–138; BP diastolic 50–72; PULSE 64–78; RESP 17–31; TEMP 36–36.4; O2SAT 90–97
[2024-04-04] MEDS: ipratropium-albuterol 3 mL Neb INHALATION ×3 (01:09→13:12)
[2024-04-04 01:56] LABS: Blood Urea Nitrogen 37 mg/dL (8-23); Calcium 9.1 mg/dL (8.5-10.5); Carbon Dioxide 24 mmol/L (22-29); Chloride 87 mmol/L (98-107); Creatinine Clr Calc Pharmacy 60.2853; Glucose 110 mg/dL (65-115); Osmolality Calculated 265 mOsm/kg (285-295); Sodium 123 mmol/L (136-145)
[2024-04-04 01:57] LABS: Anion Gap 17.2 (5-19); Potassium 5.2 mmol/L (3.5-5.1)
[2024-04-04 04:59] LABS: Basophils % 0.1 %; Hematocrit 39.3 % (37-53); Lymphocytes # 1.3 10^3/uL (0.8-4.8); Lymphocytes % 7.5 %; Mean Corpuscular HGB Conc 34.1 g/dL (30-55); Mean Corpuscular Hemoglobin 27.2 pg (27-33); Mean Corpuscular Volume 79.7 fl (82-101); Mean Platelet Volume 8.9 fL (7.4-10.4); Monocytes # 0.8 10^3/uL (0.2-0.9); Monocytes % 4.7 %; Nucleated Red Blood Cells % 0 %; Platelet Count 488 10^3/cmm (157-399); Red Blood Count 4.93 10^6/uL (3.85-5.65); Red Cell Distribution Width 13.2 % (12.1-15.1); White Blood Count 16.77 10^3/uL (3.29-11.43)
[2024-04-04] MEDS: heparin 5,000 unit/mL INJ 1 mL 5000 UNIT SUBCUT ×2 (05:09→17:09)
[2024-04-04] MEDS: levothyroxine 200 mcg Tablet PO (05:09)
[2024-04-04 05:21] LABS: Alanine Aminotransferase 68 U/L (0-41); Albumin Level 3.1 g/dL (3.5-5.2); Alkaline Phosphatase 115 U/L (40-130); Anion Gap 17.5 (5-19); Aspartate Amino Transferase 26 U/L (0-40); Blood Urea Nitrogen 40 mg/dL (8-23); Calcium 8.9 mg/dL (8.5-10.5); Carbon Dioxide 24 mmol/L (22-29); Chloride 87 mmol/L (98-107); Creatinine Clr Calc Pharmacy 60.2853; Globulin 3.6 g/dL (1.3-4.6); Glucose 125 mg/dL (65-115); Magnesium 2.2 mg/dL (1.7-2.3); Osmolality Calculated 267 mOsm/kg (285-295); Potassium 5.5 mmol/L (3.5-5.1); Sodium 123 mmol/L (136-145); Total Bilirubin 0.2 mg/dL (0.15-1.2); Total Protein 6.7 g/dL (6.6-8.7)
[2024-04-04] MEDS: budesonide 0.5 mg/2 mL Neb INHALATION (07:25)
[2024-04-04 07:43] LABS: Glucose Point of Care 140 mg/dL (70-110)
--- NOTE | 2024-04-04 08:00 | XR_ITS ---
WS: [id number] XR chest 1V portable [id number] REASON FOR EXAM: follow up pneumomediatstinum FINDINGS: Compared to the previous day, the coarse reticular interstitial lung opacities are unchanged. Finding s of pneumomediastinum are again noted and are unchanged. No new findings or other interval change. XR/XR chest 1V portable [id number] IMPRESSION: Stable abnormal chest.
[2024-04-04] MEDS: methylPREDNISolone sod succ 40 mg/mL INJ IVP (09:09)
[2024-04-04] MEDS: nystatin 100,000 unit/mL UDC 5 mL 100000 UNIT PO ×3 (09:09→17:11)
[2024-04-04] MEDS: aspirin 81 mg EC Tablet PO (09:10)
[2024-04-04] MEDS: citalopram 20 mg Tablet PO (09:10)
[2024-04-04] MEDS: fluconazole 100 mg Tablet PO (09:10)
[2024-04-04] MEDS: gabapentin 300 mg Capsule PO ×2 (09:10→14:28)
[2024-04-04] MEDS: amlodipine 10 mg Tablet PO (09:10)
[2024-04-04] MEDS: buPROPion SR (12 HR) 100 mg Tablet 200 MG PO ×2 (09:10→17:10)
[2024-04-04] MEDS: tamsulosin 0.4 mg Capsule 0.400000000000000022 MG PO (09:10)
--- NOTE | 2024-04-04 09:34 | PC.SOCIAL ---
IMM Update Pg. 2 of IMM Updated and reviewed with patient, who verbalized understanding. Copy provided.
--- NOTE | 2024-04-04 11:23 | PC.NURSE ---
Pt has been offered assistance to get out of bed to recliner 3 times thus far this am. Pt has declined.
[2024-04-04] MEDS: insulin lispro 100 unit/1 mL SUBCUT ×2 (11:45→17:09)
[2024-04-04 12:29] LABS: Blood Urea Nitrogen 42 mg/dL (8-23); Calcium 8.8 mg/dL (8.5-10.5); Carbon Dioxide 21 mmol/L (22-29); Chloride 87 mmol/L (98-107); Creatinine Clr Calc Pharmacy 54.9704; Glucose 188 mg/dL (65-115); Osmolality Calculated 265 mOsm/kg (285-295); Sodium 120 mmol/L (136-145)
[2024-04-04 12:35] LABS: Anion Gap 17.2 (5-19); Potassium 5.2 mmol/L (3.5-5.1)
[2024-04-04 13:00] LABS: Anti-Double Strand DNA AB <1 IU/mL; JO-1 Antibody <1.0 NEG AI (<1.0 NEG); SS A Ro Sjogrens Antibody <1.0 NEG AI (<1.0 NEG); SS-B/LA IGG <1.0 NEG AI (<1.0 NEG); Smith Antibody <1.0 NEG AI (<1.0 NEG)
--- NOTE | 2024-04-04 13:01 | P.TS_ITS ---
Transfer Summary Providers Date of Admission: 03/24/24 16:16 Date of Discharge/Transfer: 04/04/24 Attending Provider at Admission: Akira Samuel MD Attending Provider at Transfer: Rebeka Billingsley MD Primary Care Provider: [facility] Transfer Plans: Anticipated date of transfer: 04/04/24 . Receiving Facility: [facility] . Diagnoses at Discharge Discharge Diagnosis (1) Acute hypoxemic respiratory failure: Status: Acute (2) Acquired pneumomediastinum: Status: Acute (3) Severe pulmonary hypertension: Status: Acute (4) Pulmonary interstitial fibrosis: Status: Acute (5) Wood-dust pneumonitis: Status: Acute (6) Stiffness of joints of both hands: Status: Acute (7) Physical deconditioning: Status: Acute Reason for Visit Reason for Visit sob Hospital Course Hospital Course 78-year-old presented to the ER with respiratory failure in the setting of bilateral community-acquired pneumonia. At baseline patient is mostly bedbound. He had an ORIF for femur around 7 years ago and he was told to be nonweightbearing. Patient can bear weight but is pretty reluctant. 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 Patient is in respiratory failure secondary to poor reserves and interstitial lung disease. He has been a kramer in the past. Usually after minimal ambulation even from going to commode to recliner from bed he desaturates down to 70s on 4 to 6 L of oxygen supplementation however does recover saturations to more than 90 within 10 to 15 minutes. Patient was receiving aggressive pulmonary toilet with chest vest. However throughout hospital stay patient was now desaturating upon any movement sitting in bed. He was unable to transfer from bed to chair any longer. He did complete 7-day course of vancomycin and meropenem. Fluconazole x [address] chest abdomen pelvis was repeated which showed pneumomediastinum extending up to the neck area. There was also extensive groundglass opacities bilaterally favoring UIP. ABG had P a O2 55. Please see attached labs for details. Patient was moved to ICU and placed on high flow. PCP pneumonia in 2 sputum was ordered. LDH normal, beta D glucan negative. Initially IV Bactrim was started however it was later discontinued. At this point pulmonology has been consulted and has recommended that patient be placed on Solu-Medrol 40 IV daily x 4 weeks at least and thereafter slow taper with treatment completion at 6-week josh. Patient will need extensive pulmonary rehab as he is deconditioned and has interstitial lung disease at this time or a pneumonitis. Please see pulmonology note. Patient does have evidence of 2 pressure injuries, one of them being stage II as documented by nursing staff. This morning it was noted that his perineal area scrotum, penis were appearing very erythematous. Nystatin powder was ordered. Of note Echocardiogram has showed severe pulmonary hypertension and diastolic heart failure. We have diuresed him intermittently with Lasix 20 and 40 in the last few days. At this time he is in fair condition and will be transferred to LTAC. Vitals are stable. Physical Exam Narrative: General: No acute distress, AO x3, on nasal canula HEENT: PERRLA, pupils bilaterally equal and reactive Chest: Bilateral normal vesicular breath sounds all over lung almaguer, crackles improved. CVS: S1-S2 regular, no murmurs, tachycardia, no gallops, no rubs Abdomen: Soft, nontender, no organomegaly, bowel sounds present Neuro: Able to move all 4 extremities. Urinary Catheter Management: Obrien: Cath Placed During This Visit: yes Reason for Continuing Indwelling Catheter: Accurate Measurement of Urinary Output in Critically Ill Patients Urinary Catheter Date of Insertion: 03/24/24 Urinary Catheter Time of Insertion: 05:45 TS Data Studies Completed and Pending Pending at discharge Category Date Time Status XR chest 1V portable [id number] Q1D Exams 04/05/24 08:00 Ordered XR chest 1V portable [id number] Q1D Exams 04/06/24 08:00 Ordered XR chest 1V portable [id number] Q1D Exams 04/07/24 08:00 Ordered XR chest 1V portable [id number] Q1D Exams 04/08/24 08:00 Ordered XR chest 1V portable [id number] Q1D Exams 04/09/24 08:00 Ordered PAULY Screen w/ Reflex Routine Lab 04/03/24 03:31 Results BMP [Basic Metabolic Panel] Q12H Lab 04/05/24 00:54 Ordered BMP [Basic Metabolic Panel] Q12H Lab 04/05/24 12:54 Ordered BMP [Basic Metabolic Panel] Q12H Lab 04/06/24 00:54 Ordered Cyclic Citrullinated Peptide Routine Lab 04/03/24 03:31 Received NEL-1 [NEL-1 Antibody] Routine Lab 04/03/24 03:31 Results Pneumocystis PCP [Pneumocystis jiroveci Qual PCR] Lab 04/02/24 14:06 Ordered Routine SS-B/LA Antibody IGG Routine Lab 04/03/24 03:31 Results SSA [SS A Ro Sjogrens Antibody] Routine Lab 04/03/24 03:31 Results Sputum Culture and Gram Stain Stat Lab 04/02/24 13:58 Uncollected Completed Studies During Hospitalization Category Date Time Status CT angio chest PE protcl [id number] Stat Cat Scan 03/24/24 12:[address] chest abdomen pelvis [[place] [id number] Cat Scan 04/02/24 08:35 Completed ] Urgent CT chest wo con [id number] Stat Cat Scan 04/02/24 13:59 Completed XR chest 1V portable [id number] Q1D Exams 04/04/24 08:00 Completed XR chest 1V portable [id number] Routine Exams 03/26/24 08:00 Completed XR chest 1V portable [id number] Routine Exams 03/28/24 10:26 Completed XR chest 1V portable [id number] Routine Exams 04/03/24 09:43 Completed XR chest 1V portable [id number] Stat Exams 03/24/24 11:05 Completed XR chest 1V portable [id number] Stat Exams 03/24/24 14:37 Completed XR femur LT min 2V* [id number] Routine Exams 03/26/24 11:11 Completed XR knee RT 3V* [id number] Routine Exams 03/26/24 11:11 Completed CV. echo complete* [id number] Routine Ultrasound 03/24/24 16:11 Completed Laboratory Last Values WBC 16.77 10^3/uL (3.29-11.43) H 04/04/24 04:20 RBC 4.93 10^6/uL (3.85-5.65) 04/04/24 04:20 Hgb 13.40 g/dL (11.27-16.99) 04/04/24 04:20 Hct 39.3 % (37-53) 04/04/24 04:20 MCV 79.7 fl (82-101) L 04/04/24 04:20 MCH 27.2 pg (27-33) 04/04/24 04:20 MCHC 34.1 g/dL (30-55) 04/04/24 04:20 RDW 13.2 % (12.1-15.1) 04/04/24 04:20 Plt Count 488 10^3/cmm (157-399) H 04/04/24 04:20 MPV 8.9 fL (7.4-10.4) 04/04/24 04:20 Neut % (Auto) 87.0 % 04/04/24 04:20 Lymph % (Auto) 7.5 % 04/04/24 04:20 [place] % (Auto) 4.7 % 04/04/24 04:20 Eos % (Auto) 0.0 % 04/04/24 04:20 Baso % (Auto) 0.1 % 04/04/24 04:20 Neut # (Auto) 14.60 10^3/uL (1.8-7.7) H 04/04/24 04:20 Lymph # (Auto) 1.3 10^3/uL (0.8-4.8) 04/04/24 04:20 [place] # (Auto) 0.8 10^3/uL (0.2-0.9) 04/04/24 04:20 Eos # (Auto) 0.0 10^3/uL (0.0-0.8) 04/04/24 04:20 Baso # (Auto) 0.0 10^3/uL (0.0-0.1) 04/04/24 04:20 Nucleated RBC % (auto) 0 % 04/04/24 04:20 Nucleated RBCs # 0.0 /100WBC 04/04/24 04:20 ESR 28 mm/hr (0-10) H 04/03/24 03:31 D-Dimer 2.63 ug/mLFEU (0-0.59) H 04/02/24 15:42 Specimen Type Arterial 04/03/24 17:25 Sample Site Brachial, right 04/03/24 17:25 ABG pH 7.48 (7.35-7.45) H 04/03/24 17:25 ABG pCO2 31.2 mmHg (35-45) L 04/03/24 17:25 ABG pO2 55.4 mmHg (80.0-100.0) L 04/03/24 17:25 ABG PO2/FiO2 Ratio 0 04/03/24 17:25 ABG HCO3 23.5 mmol/L (22-26) 04/03/24 17:25 ABG O2 Saturation 90.1 04/03/24 17:25 ABG Base Excess 0.8 mmol/L (-2.0-2.0) 04/03/24 17:25 Ozzie Test N/a 04/03/24 17:25 A-a O2 Gradient 20.8 mmHg (5-10) H 04/03/24 17:25 Hematocrit 41.2 % (42-52) L 04/03/24 17:25 Hgb O2 Saturation 88.6 % (95-100) L 04/03/24 17:25 Carboxyhemoglobin 1.1 %THgb (0.4-20.1) 04/03/24 17:25 Methemoglobin 0.6 % (0.4-1.5) 04/03/24 17:25 Total Hemoglobin 13.4 g/dL (14-18) L 04/03/24 17:25 Sodium 121.0 mmol/L (131-143) L 04/03/24 17:25 Potassium 4.7 mmol/L (3.5-5.0) 04/03/24 17:25 Glucose 330.0 mg/dL (70-115) H 04/03/24 17:25 Ionized Calcium 1.2 mmol/L (1.1-1.4) 04/03/24 17:25 O2 Delivery Device Nc 04/03/24 17:25 O2 Liters/Min 4.0 % 04/03/24 17:25 FiO2 36.0 % 04/03/24 17:25 Vice President [employer] ID Gd 04/03/24 17:25 Sodium 120 mmol/L (136-145) L 04/04/24 12:05 Potassium 5.2 mmol/L (3.5-5.1) H 04/04/24 12:05 Chloride 87 mmol/L (98-107) L 04/04/24 12:05 Carbon Dioxide 21 mmol/L (22-29) L 04/04/24 12:05 Anion Gap 17.2 (5-19) 04/04/24 12:05 BUN 42 mg/dL (8-23) H 04/04/24 12:05 Creatinine 1.2 mg/dL (0.7-1.2) 04/04/24 12:05 GFR Calculation Not Reportable 04/04/24 12:05 Glucose 188 mg/dL (65-115) H 04/04/24 12:05 POC Glucose 140 mg/dL (70-110) H 04/04/24 07:34 Estimat Average Glucose 120 03/25/24 03:03 Hemoglobin A1c 5.8 % (4.0-6.0) 03/25/24 03:03 Calculated Osmolality 265 mOsm/kg (285-295) L 04/04/24 12:05 Lactic Acid 1.3 mmol/L (0.5-2.2) 03/24/24 12:04 Calcium 8.8 mg/dL (8.5-10.5) 04/04/24 12:05 Phosphorus 3.2 mg/dL (2.5-4.5) 03/25/24 03:03 Magnesium 2.2 mg/dL (1.7-2.3) 04/04/24 04:20 Iron 18 ug/dL (59-158) L 03/24/24 14:09 TIBC 213 mcg/dl 03/24/24 14:09 % Saturation 8.4 % (20-50) L 03/24/24 14:09 Unsat Iron Binding 195 ug/dL (112-347) 03/24/24 14:09 Total Bilirubin 0.2 mg/dL (0.15-1.2) 04/04/24 04:20 AST 26 U/L (0-40) 04/04/24 04:20 ALT 68 U/L (0-41) H 04/04/24 04:20 Alkaline Phosphatase 115 U/L (40-130) 04/04/24 04:20 Lactate Dehydrogenase 170 U/L (135-225) 04/02/24 15:42 Troponin T Baseline 48 ng/L (0-15) H 03/24/24 12:04 Troponin T 120 Minute 46.65 ng/L (0-15) H 03/24/24 14:09 Delta Troponin T -1.35 ABS# (0-10) L 03/24/24 14:09 Troponin T Hi Sens 6Hr 43.21 ng/L (0-15) H 03/24/24 19:00 Troponin T Hi Sens 6Hr Delta -4.79 ng/L (0-12) L 03/24/24 19:00 C-Reactive Protein 23.8 mg/L (0.0-4.9) H 04/03/24 03:31 NT-Pro-B Natriuret Pep 1546 pg/mL (0-450) H 03/28/24 05:10 Total Protein 6.7 g/dL (6.6-8.7) 04/04/24 04:20 Albumin 3.1 g/dL (3.5-5.2) L 04/04/24 04:20 Globulin 3.6 g/dL (1.3-4.6) 04/04/24 04:20 Triglycerides 59 mg/dL (0-150) 03/25/24 03:03 Cholesterol 108 mg/dL (0-200) 03/25/24 03:03 LDL Cholesterol, Calc 56 mg/dL (50-129) 03/25/24 03:03 HDL Cholesterol 40 mg/dL (60-100) L 03/25/24 03:03 LDL/HDL Ratio 1.40 RATIO (0.00-3.22) 03/25/24 03:03 Cholesterol/HDL Ratio 2.70 mg/dL (1.0-5.00) 03/25/24 03:03 Vitamin B12 268 pg/mL (232-1245) 03/24/24 14:09 Folate 4.7 ng/mL (4.5-32.2) 03/25/24 03:03 Procalcitonin 0.08 ng/mL (0-0.5) 04/02/24 15:42 TSH 2.17 uIU/mL (0.27-4.20) 03/24/24 14:09 Urine Color Yellow (Yellow) 03/24/24 19:20 Urine Appearance Cloudy (CLEAR) A 03/24/24 19:20 Urine pH 6.5 (5-7) 03/24/24 19:20 Ur Specific [place] 1.010 (1.005-1.030) 03/24/24 19:20 Urine Protein Trace (Negative) 03/24/24 19:20 Urine Glucose (UA) Trace (Normal) H 03/24/24 19:20 Urine Ketones 1+ (Negative) H 03/24/24 19:20 Urine Blood 2+ (Negative) H 03/24/24 19:20 Urine Nitrate Negative (Negative) 03/24/24 19:20 Urine Bilirubin Neg (Negative) 03/24/24 19:20 Urine Urobilinogen Neg mg/dL (Negative) 03/24/24 19:20 Ur Leukocyte Esterase 2+ (Negative) H 03/24/24 19:20 Urine RBC 5-10 /hpf (0-2) H 03/24/24 19:20 Urine WBC 25-40 /hpf (0-5) H 03/24/24 19:20 Ur Squamous Epith Cells 0-4 /hpf (0-5) H 03/24/24 19:20 Amorphous Sediment Not Reportable 03/24/24 19:20 Urine Bacteria Trace /hpf (NONE) 03/24/24 19:20 Urine Mucus Trace /hpf 03/24/24 19:20 Vancomycin Trough 13.7 ug/mL (10-15) 03/26/24 04:15 Rheumatoid Factor 14.0 IU/mL (0-14) 04/03/24 03:31 NEL-1 Antibody <1.0 neg AI (<1.0 NEG) 04/03/24 03:31 SS-A/Ro Antibody <1.0 neg AI (<1.0 NEG) 04/03/24 03:31 SS-B/La IgG Antibody <1.0 neg AI (<1.0 NEG) 04/03/24 03:31 Sm (Thompson) Antibody <1.0 neg AI (<1.0 NEG) 04/03/24 03:31 Anti-ds DNA IgG Ab <1 IU/mL 04/03/24 03:31 Adenovirus (PCR) Not detected (NOT DETECT) 03/24/24 16:45 C. pneumoniae DNA (PCR) Not detected (NOT DETECT) 03/24/24 16:45 Coronavirus 229E (PCR) Not detected (NOT DETECT) 03/24/24 16:45 Human Metapneumovir PCR Not detected (NOT DETECT) 03/24/24 16:45 Influenza A (H1) PCR Not detected (NOT DETECT) 03/24/24 16:45 Influ A (H1/09) PCR Not detected (NOT DETECT) 03/24/24 16:45 Influenza A (H3) PCR Not detected (NOT DETECT) 03/24/24 16:45 Influenza Type A (PCR) Not detected (NOT DETECT) 03/24/24 16:45 Influenza Type B (PCR) Not detected (NOT DETECT) 03/24/24 16:45 M. pneumoniae (PCR) Not detected (NOT DETECT) 03/24/24 16:45 Parainfluenza 1 (PCR) Not detected (NOT DETECT) 03/24/24 16:45 Parainfluenza 2 (PCR) Not detected (NOT DETECT) 03/24/24 16:45 Parainfluenza 3 (PCR) Not detected (NOT DETECT) 03/24/24 16:45 Parainfluenza 4 (PCR) Not detected (NOT DETECT) 03/24/24 16:45 RSV Type A (PCR) Not detected (NOT DETECT) 03/24/24 16:45 RSV Type B (PCR) Not detected (NOT DETECT) 03/24/24 16:45 Entero/Rhino (PCR) Not detected (NOT DETECT) 03/24/24 16:45 SARS-CoV-2 (PCR) Not detected (NOT DETECT) 03/24/24 16:45 MRSA (PCR) Not detected (NOT DETECTED) 03/24/24 19:20 Beta-(1,3)-D-Glucan 37 pg/ml 03/28/24 15:12 B-(1,3)-D-Glucan Intrp Negative (Negative) 03/28/24 15:12 Radiology Impressions Chest CTA 03/24/24 12:06 IMPRESSION: 1. No pulmonary embolism 2. Dense diffuse bilateral pneumonic infiltrates as above. Associated mild mediastinal adenopathy and pronounced bilateral hilar adenopathy.. Previously seen subpleural 9 mm RLL nodule is unchanged. 3. Chronic findings as above Femur X-Ray 03/26/24 11:11 IMPRESSION: 1. Healed fracture of the lower humerus with plate and screw fixation. No acute fracture or hardware complication noted. Knee X-Ray 03/26/24 11:11 IMPRESSION: 1. 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 2. No fracture. Chest/Abdomen/Pelvis CT 04/02/24 08:35 IMPRESSION: 1. Advanced dense consolidations throughout both lungs. Consolidations are superimposed on additional opacifications consistent with UIP. It is difficult to identify the extent of acute on chronic disease. Very similar to 03/24/2024. Significant progression and predominantly new honeycombing and bronchiectasis as compared to 2019. 2. New moderate pneumomediastinum since 03/24/2024. Pneumomediastinum dissects into the RIGHT neck. 3. Cholelithiasis. No evidence for acute cholecystitis. 4. No appendicitis. 5. No GI tract obstruction. 6. No free fluid or free air. Chest CT 04/02/24 13:59 IMPRESSION: 1. No esophageal rupture. Gastrografin contrast is identified in the esophagus and stomach without leak into the mediastinum. 2. Pneumomediastinum is unchanged mostly in the retrosternal anterior mediastinum. 3. Severe emphysematous changes. Extensive end-stage honeycomb fibrosis, bronchiectasis and diffuse airspace opacity in the lungs is unchanged. This diffuse airspace density, which may represent pneumonia, pulmonary edema, or inflammatory pneumonitis such as ARDS. COMMENTS: The presence of pulmonary emphysema on CT is an independent risk factor for lung cancer. In the absence of a history or active diagnosis of lung cancer, it is recommended that this patient with emphysema be evaluated for enrollment in a low dose CT lung cancer screening program. Chest X-Ray 04/04/24 08:00 IMPRESSION: Stable abnormal chest. Recent Clincial Data Last Vital Signs Temp 96.8 F L 04/04/24 08:00 Pulse 72 04/04/24 12:00 Resp 26 H 04/04/24 12:00 BP 127/57 04/04/24 12:00 Pulse Ox 92 04/04/24 12:00 O2 Del Method Nasal Cannula 04/04/24 12:00 O2 Flow Rate 4 04/04/24 11:00 FiO2 35 04/01/24 20:01 Vital Signs Temp Pulse Resp BP Pulse Ox O2 Del Method O2 Flow Rate 04/04/24 12:00 72 26 H 127/57 92 Nasal Cannula 04/04/24 11:00 72 26 H 127/59 92 Nasal Cannula 4 04/04/24 10:00 71 25 H 127/59 95 Nasal Cannula 4 04/04/24 09:30 70 27 H 109/50 96 Nasal Cannula 4 04/04/24 09:00 74 25 H 115/55 92 Nasal Cannula 4 04/04/24 08:00 96.8 F L 68 20 H 126/57 96 Nasal Cannula 4 04/04/24 07:25 70 H 22 L Nasal Cannula 4 04/04/24 07:00 65 25 H 120/54 90 Nasal Cannula 4 04/04/24 05:59 64 04/04/24 05:00 65 17 119/56 95 04/04/24 04:00 65 26 H 113/61 95 04/04/24 04:00 97.5 F L 04/04/24 03:00 67 24 H 115/53 93 04/04/24 02:00 66 23 H 117/54 94 04/04/24 01:13 65 18 97 Nasal Cannula 4 04/04/24 01:09 67 18 95 Nasal Cannula 4 Intake & Output/Weight 04/02/24 04/03/24 04/04/24 04/05/24 06:59 06:59 06:59 06:59 Intake Total 720 / 720 1204 / 1204 2268 / 2268 480 / 480 Output Total 3400 / 3400 3400 / 3400 2925 / 2925 Balance -2680 / -2680 -2196 / -2196 -657 / -657 480 / 480 Weight 81.278 kg 79.968 kg 78.97 kg Vitals Last Vital Signs Temp 96.8 F L 04/04/24 08:00 Pulse 72 04/04/24 12:00 Resp 26 H 04/04/24 12:00 BP 127/57 04/04/24 12:00 Pulse Ox 92 04/04/24 12:00 O2 Del Method Nasal Cannula 04/04/24 12:00 O2 Flow Rate 4 04/04/24 11:00 FiO2 35 04/01/24 20:01 TS Medications Medications Acetaminophen (Acetaminophen 325 Mg Tablet) 650 mg PO Q6H PRN PRN Reason: Mild/Mod Pain Or Temp >/= 101 Albuterol/Ipratropium (Ipratropium-Albuterol 3 Ml Neb) 3 ml INHALATION Q6H.RESP THEE Last Admin: 04/04/24 07:25 Dose: 3 ml Amlodipine Besylate (Amlodipine 10 Mg Tablet) 10 mg PO DAILY THEE Last Admin: 04/04/24 09:10 Dose: 10 mg Aspirin (Aspirin 81 Mg Ec Tablet) 81 mg PO DAILY THEE Last Admin: 04/04/24 09:10 Dose: 81 mg Atorvastatin Calcium (Atorvastatin 40 Mg Tablet) 20 mg PO QPM THEE Last Admin: 04/03/24 17:37 Dose: 20 mg Bisacodyl (Bisacodyl 5 Mg Tablet) 10 mg PO DAILY PRN; Protocol PRN Reason: Constipation (see protocol) Budesonide (Budesonide 0.5 Mg/2 Ml Neb) 0.5 mg INHALATION BID.RESPIRATORY THEE Last Admin: 04/04/24 07:25 Dose: 0.5 mg Bupropion HCl (Bupropion Sr (12 Hr) 100 Mg Tablet) 200 mg PO BID COUNT INCLUDES THE [facility] Last Admin: 04/04/24 09:10 Dose: 200 mg Citalopram Hydrobromide (Citalopram 20 Mg Tablet) 20 mg PO DAILY THEE Last Admin: 04/04/24 09:10 Dose: 20 mg Fluconazole (Fluconazole 100 Mg Tablet) 100 mg PO DAILY THEE Stop: 04/04/24 15:14 Last Admin: 04/04/24 09:10 Dose: 100 mg Furosemide (Furosemide 10 Mg/Ml Sdv 4ml) 40 mg IVP Q24H THEE Last Admin: 04/03/24 15:45 Dose: 40 mg Gabapentin (Gabapentin 300 Mg Capsule) 300 mg PO TID COUNT INCLUDES THE [facility] Last Admin: 04/04/24 09:10 Dose: 300 mg Heparin Sodium (Porcine) (Heparin 5,000 Unit/Ml Inj 1 Ml) 5,000 unit SUBCUT Q12H COUNT INCLUDES THE [facility] Last Admin: 04/04/24 05:09 Dose: 5,000 unit Dextrose (D5w) 500 mls @ 0 mls/hr IV ONCE PRN; Protocol PRN Reason: Adult Acute Hypoglycemia Prot Dextrose (D10w) 125 mls @ 750 mls/hr IV PRN PRN; Protocol PRN Reason: Adult Acute Hypoglycemia Nursing Protocol Dextrose (D10w) 250 mls @ 1,000 mls/hr IV PRN PRN; Protocol PRN Reason: Adult Acute Hypoglycemia Nursing Protocol Sodium Chloride (Sodium Chloride 0.9%) 1,000 mls @ 75 mls/hr IV .[id number] COUNT INCLUDES THE [facility] Insulin Human Lispro (Insulin Lispro 100 Unit/1 Ml) 0 unit SUBCUT WM&BEDTIME THEE; Protocol Last Admin: 04/04/24 11:45 Dose: 2 unit Lactulose (Lactulose Oral Liq 20 Gm/30 Ml Udc) 10 gm PO DAILY PRN; Protocol PRN Reason: Constipation (see protocol) Last Admin: 04/01/24 08:56 Dose: 10 gm Lanolin (Lanolin Oint 7 Gm) 1 applic TOPICAL PRN PRN PRN Reason: DRYNESS Last Admin: 03/30/24 16:58 Dose: 1 applic Levothyroxine Sodium (Levothyroxine 200 Mcg Tablet) 200 mcg PO QAM COUNT INCLUDES THE [facility] Last Admin: 04/04/24 05:09 Dose: 200 mcg Magnesium Hydroxide (Magnesium Hydroxide 30 Ml Udc) 30 ml PO DAILY PRN; Protocol PRN Reason: Constipation (see protocol) Methylprednisolone Sodium Succinate (Methylprednisolone Sod Succ 40 Mg/Ml Inj) 40 mg IVP DAILY COUNT INCLUDES THE [facility] Last Admin: 04/04/24 09:09 Dose: 40 mg Nystatin (Nystatin 100,000 Unit/Ml Udc 5 Ml) 100,000 unit PO QID THEE Last Admin: 04/04/24 09:09 Dose: 100,000 unit Nystatin (Nystatin Powder 15 Gm Btl) 1 applic TOPICAL QID THEE Ondansetron HCl (Ondansetron 2 Mg/Ml Sdv 2 Ml) 4 mg IVP Q8H PRN PRN Reason: vomiting, or N/V if npo Pantoprazole Sodium (Pantoprazole 40 Mg Sdv) 40 mg IVP Q24H COUNT INCLUDES THE [facility] Last Admin: 04/03/24 17:36 Dose: 40 mg Tamsulosin HCl (Tamsulosin 0.4 Mg Capsule) 0.4 mg PO DAILY COUNT INCLUDES THE [facility] Last Admin: 04/04/24 09:10 Dose: 0.4 mg Discontinued Medications Acetylcysteine (Acetylcysteine 200 Mg/Ml Sdv 4 Ml) 100 mg INHALATION Q6H.RESP COUNT INCLUDES THE [facility] Last Admin: 04/03/24 08:43 Dose: Not Given Albuterol Sulfate (Albuterol 2.5 Mg/3 Ml Neb) 2.5 mg INHALATION ONCE ONE Stop: 03/24/24 14:38 Last Admin: 03/24/24 14:56 Dose: 2.5 mg Albuterol/Ipratropium (Ipratropium-Albuterol 3 Ml Neb) 3 ml INHALATION ONCE ONE Stop: 03/24/24 14:38 Last Admin: 03/24/24 14:56 Dose: 3 ml Albuterol/Ipratropium (Ipratropium-Albuterol 3 Ml Neb) 3 ml INHALATION QID.RESPIRATORY THEE Azithromycin (Azithromycin 250 Mg Tablet) 500 mg PO DAILY THEE; Protocol Stop: 03/28/24 15:19 Last Admin: 03/28/24 09:31 Dose: 500 mg Furosemide (Furosemide 10 Mg/Ml Sdv 2ml) 20 mg IVP ONCE ONE Stop: 03/25/24 21:23 Last Admin: 03/25/24 21:41 Dose: 20 mg Furosemide (Furosemide 20 Mg Tablet) 20 mg PO ONCE ONE Stop: 03/27/24 11:17 Last Admin: 03/27/24 12:25 Dose: 20 mg Furosemide (Furosemide 20 Mg Tablet) 20 mg PO ONCE ONE Stop: 03/30/24 12:43 Last Admin: 03/30/24 13:49 Dose: 20 mg Furosemide (Furosemide 10 Mg/Ml Sdv 2ml) 20 mg IVP ONCE ONE Stop: 04/02/24 12:12 Last Admin: 04/02/24 13:14 Dose: 20 mg Gabapentin (Gabapentin 300 Mg Capsule) 300 mg PO TID THEE Last Admin: 03/28/24 19:40 Dose: Not Given Meropenem 500 mg/ Sodium (Chloride) 50 mls @ 100 mls/hr IV ONCE ONE; Protocol Stop: 03/24/24 15:09 Last Infusion: 03/24/24 15:26 Dose: Infused Linezolid (Zyvox Premix) 600 mg in 300 mls @ 300 mls/hr IV ONCE ONE; Protocol Stop: 03/24/24 15:39 Last Infusion: 03/24/24 16:35 Dose: Infused Sodium Chloride (Sodium Chloride 0.9%) 1,000 mls @ 999 mls/hr IV .Q1H1M ONE Stop: 03/24/24 16:46 Last Infusion: 03/24/24 17:58 Dose: Infused Sodium Chloride (Sodium Chloride 0.9%) 1,000 mls @ 999 mls/hr IV .Q1H1M ONE Stop: 03/24/24 16:47 Last Infusion: 03/24/24 17:59 Dose: Infused Meropenem 1,000 mg/ Sodium (Chloride) 50 mls @ 100 mls/hr IV Q8H THEE; Protocol Last Admin: 03/24/24 16:50 Dose: Not Given Vancomycin HCl 1,000 mg/ (Sodium Chloride) 250 mls @ 250 mls/hr IV Q12H THEE; Protocol Last Infusion: 03/26/24 06:40 Dose: Infused Sodium Chloride (Sodium Chloride 0.9%) 1,000 mls @ 75 mls/hr IV .[id number] COUNT INCLUDES THE [facility] Last Infusion: 03/25/24 18:17 Dose: Infused Meropenem 1,000 mg/ Sodium (Chloride) 50 mls @ 100 mls/hr IV Q8H COUNT INCLUDES THE [facility]; Protocol Stop: 03/31/24 21:59 Last Infusion: 03/31/24 15:13 Dose: Infused Trimethoprim/Sulfamethoxazole (544 mg/ Dextrose) 534 mls @ 427.2 mls/hr IV Q8H THEE; Protocol Last Admin: 04/03/24 19:24 Dose: Not Given Trimethoprim/Sulfamethoxazole (544 mg/ Dextrose) 534 mls @ 427.2 mls/hr IV Q8H THEE; Protocol Last Infusion: 04/03/24 19:24 Dose: Infused Trimethoprim/Sulfamethoxazole (544 mg/ Dextrose) 534 mls @ 427.2 mls/hr IV Q8H THEE; Protocol Iohexol (Iohexol 350 Mg/Ml 500 Ml Btl (Per Ml)) 0 ml IV ONCE ONE Stop: 03/24/24 14:50 Last Admin: 03/24/24 14:50 Dose: 71 ml Iohexol (Iohexol 350 Mg/Ml 500 Ml Btl (Per Ml)) 0 ml PO ONCE ONE Stop: 04/02/24 16:13 Last Admin: 04/02/24 16:12 Dose: 10 ml Methylprednisolone Sodium Succinate (Methylprednisolone Sod Succ 125 Mg/2 Ml Inj) 125 mg IVP ONCE ONE Stop: 03/24/24 14:38 Last Admin: 03/24/24 14:42 Dose: 125 mg Methylprednisolone Sodium Succinate (Methylprednisolone Sod Succ 40 Mg/Ml Inj) 40 mg IVP Q6H COUNT INCLUDES THE [facility] Last Admin: 03/25/24 08:43 Dose: 40 mg Methylprednisolone Sodium Succinate (Methylprednisolone Sod Succ 40 Mg/Ml Inj) 40 mg IVP BID COUNT INCLUDES THE [facility] Last Admin: 03/27/24 08:39 Dose: 40 mg Methylprednisolone Sodium Succinate (Methylprednisolone Sod Succ 40 Mg/Ml Inj) 20 mg IVP BID COUNT INCLUDES THE [facility] Last Admin: 04/01/24 17:32 Dose: 20 mg Methylprednisolone Sodium Succinate (Methylprednisolone Sod Succ 40 Mg/Ml Inj) 20 mg IVP DAILY COUNT INCLUDES THE [facility] Last Admin: 04/02/24 08:40 Dose: 20 mg Morphine Sulfate (Morphine 4 Mg/Ml Sdv 1 Ml) 2 mg IVP Q4H PRN PRN Reason: SEVERE PAIN Sodium Chloride (Sodium Chloride 1 Gm Tablet) 1 gm PO BID COUNT INCLUDES THE [facility] Stop: 04/03/24 18:01 Last Admin: 04/03/24 17:37 Dose: 1 gm Allergies doxycycline Allergy (Verified 03/03/21 09:50) ALGY-Hives Penicillins Allergy (Verified 03/03/21 09:50) ALGY-Hives Sulfa (Sulfonamide Antibiotics) Allergy (Verified 03/03/21 09:50) ALGY-Hives Home Medications amitriptyline 10 mg tablet 20 mg PO BEDTIME 03/24/24 [History Confirmed 03/24/24] amlodipine 10 mg tablet 10 mg PO DAILY 03/24/24 [History Confirmed 03/24/24] aspirin 81 mg tablet,delayed release 81 mg PO DAILY 03/24/24 [History Confirmed 03/24/24] bupropion HCl 200 mg tablet,12 hr sustained-release 200 mg PO BID 03/24/24 [History Confirmed 03/24/24] citalopram 40 mg tablet 20 mg PO DAILY 03/24/24 [History Confirmed 03/24/24] gabapentin 300 mg capsule 300 mg PO TID 03/24/24 [History Confirmed 03/24/24] hydrocodone 5 mg-acetaminophen 325 mg tablet 1 tab PO BID PRN Pain (Scale Score 1-3) 03/24/24 [History Confirmed 03/24/24] ibuprofen 800 mg tablet 800 mg PO TID 03/24/24 [History Confirmed 03/24/24] levothyroxine 200 mcg tablet 200 mcg PO QAM 03/24/24 [History Confirmed 03/24/24] losartan 25 mg tablet 12.5 mg PO DAILY 03/24/24 [History Confirmed 03/24/24] methocarbamol 750 mg tablet 750 mg PO TID 03/24/24 [History Confirmed 03/24/24] omeprazole 20 mg tablet,delayed release 20 mg PO BID 03/24/24 [History Confirmed 03/24/24] pravastatin 40 mg tablet 40 mg PO QPM 03/24/24 [History Confirmed 03/24/24] pyridoxine (vitamin B6) 25 mg tablet (Vitamin B-6) 25 mg PO DAILY 03/24/24 [History Confirmed 03/24/24] tamsulosin 0.4 mg capsule 0.4 mg PO DAILY 03/24/24 [History Confirmed 03/24/24] Discharge Plan Discharge Patient Disposition: Xfer Other Condition: Stable Prescriptions: No Action citalopram 40 mg Tablet 20 mg PO DAILY pravastatin 40 mg Tablet 40 mg PO QPM ibuprofen 800 mg Tablet 800 mg PO TID hydrocodone-acetaminophen 5-325 mg Tablet 1 tab PO BID PRN (Reason: Pain (Scale Score 1-3)) Vitamin B-6 25 mg Tablet 25 mg PO DAILY Aspir-81 81 mg Tablet,Delayed Release (Dr/Ec) 81 mg PO DAILY methocarbamol 750 mg Tablet 750 mg PO TID tamsulosin 0.4 mg Capsule 0.4 mg PO DAILY amitriptyline 10 mg Tablet 20 mg PO BEDTIME amlodipine 10 mg Tablet 10 mg PO DAILY losartan 25 mg Tablet 12.5 mg PO DAILY gabapentin 300 mg Capsule 300 mg PO TID levothyroxine 200 mcg Tablet 200 mcg PO QAM bupropion HCl 200 mg Tablet Sustained-Release 12 Hr 200 mg PO BID omeprazole 20 mg Tablet,Delayed Release (Dr/Ec) 20 mg PO BID Discharge Orders: Discharge Order (Routine); Ordered 04/04/24 Ordered By: Rebeka Billingsley Other Ambulatory Orders: DME: Oxygen (Order) Location: None Selected Ordered By: Rebeka Billingsley Referrals: [facility] [Primary Care Provider] - Transfer Attestations Time Spent in Transfer Care: greater than 30 min Quality Metrics Clinical Quality Measures [ No reported AMI, CVA or VTE this stay] Coding Level of Care Code 42508 Total time (in minutes) for Discharge: 40 Diagnoses Acute hypoxemic respiratory failure J96.01 Acquired pneumomediastinum J98.2 Severe pulmonary hypertension I27.20 Pulmonary interstitial fibrosis J84.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
--- NOTE | 2024-04-04 13:52 | PM.PN ---
Subjective Subjective: Clinically unchanged-still requiring 6 L supplemental oxygen Chest x-ray unchanged pneumomediastinum-patient denied any chest pain-no evidence of subcutaneous crepitus over chest wall or neck area -Patient is being transferred to LTAC Medications: Reviewed: Yes Vitals/I&O/Wt Last Vital Signs Temp 96.8 F L 04/04/24 08:00 Pulse 70 04/04/24 13:12 Resp 24 H 04/04/24 13:12 BP 127/57 04/04/24 12:00 Pulse Ox 96 04/04/24 13:12 O2 Del Method Nasal Cannula 04/04/24 13:12 O2 Flow Rate 4 04/04/24 13:12 FiO2 35 04/01/24 20:01 04/03/24 04/04/24 04/04/24 22:59 06:59 14:59 Intake Total 934 / 2268 480 / 480 Output Total 1325 / 2325 600 / 2925 Balance -391 / -57 -600 / -657 480 / 480 Weight last 48 hrs Weight 174 lb 1.6 oz Weight 176 lb 4.8 oz Weight 176 lb 4.8 oz Physical Exam Narrative: General: alert, NAD HEENT: conj clear, EOMI, PERRL, mmm, Neck: supple, no meningismus, no subcutaneous crepitus noted Heme: no cervical LAP Respiratory: Inspection: No visible deformity of the chest wall Palpation: Trachea is mildly deviated to the right, bilateral symmetric expansion, no subcutaneous crepitus noted Percussion: Bilateral tympanic percussion note both anterior and posteriorly Auscultation: Bilateral mild diffuse crepitations Cardiovascular: rrr, nl s1s2, no mrg Abdomen: soft, nt, nd, no r/g, bs+ Extremities: pulses +, no edema, no c/c : no CVA tenderness Skin: intact, no rash MSK: no back or neck pain Neurologic: grossly intact Urinary Catheter Management: Obrien: Cath Placed During This Visit: yes Reason for Continuing Indwelling Catheter: Accurate Measurement of Urinary Output in Critically Ill Patients Urinary Catheter Date of Insertion: 03/24/24 Urinary Catheter Time of Insertion: 05:45 Data 04/04/24 04:20 04/04/24 12:05 Other Labs: Radiology Impressions Chest CTA 03/24/24 12:06 IMPRESSION: 1. No pulmonary embolism 2. Dense diffuse bilateral pneumonic infiltrates as above. Associated mild mediastinal adenopathy and pronounced bilateral hilar adenopathy.. Previously seen subpleural 9 mm RLL nodule is unchanged. 3. Chronic findings as above Femur X-Ray 03/26/24 11:11 IMPRESSION: 1. Healed fracture of the lower humerus with plate and screw fixation. No acute fracture or hardware complication noted. Knee X-Ray 03/26/24 11:11 IMPRESSION: 1. 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 2. No fracture. Chest/Abdomen/Pelvis CT 04/02/24 08:35 IMPRESSION: 1. Advanced dense consolidations throughout both lungs. Consolidations are superimposed on additional opacifications consistent with UIP. It is difficult to identify the extent of acute on chronic disease. Very similar to 03/24/2024. Significant progression and predominantly new honeycombing and bronchiectasis as compared to 2019. 2. New moderate pneumomediastinum since 03/24/2024. Pneumomediastinum dissects into the RIGHT neck. 3. Cholelithiasis. No evidence for acute cholecystitis. 4. No appendicitis. 5. No GI tract obstruction. 6. No free fluid or free air. Chest CT 04/02/24 13:59 IMPRESSION: 1. No esophageal rupture. Gastrografin contrast is identified in the esophagus and stomach without leak into the mediastinum. 2. Pneumomediastinum is unchanged mostly in the retrosternal anterior mediastinum. 3. Severe emphysematous changes. Extensive end-stage honeycomb fibrosis, bronchiectasis and diffuse airspace opacity in the lungs is unchanged. This diffuse airspace density, which may represent pneumonia, pulmonary edema, or inflammatory pneumonitis such as ARDS. COMMENTS: The presence of pulmonary emphysema on CT is an independent risk factor for lung cancer. In the absence of a history or active diagnosis of lung cancer, it is recommended that this patient with emphysema be evaluated for enrollment in a low dose CT lung cancer screening program. Chest X-Ray 04/04/24 08:00 IMPRESSION: Stable abnormal chest. Laboratory Results WBC 16.77 10^3/uL (3.29-11.43) H 04/04/24 04:20 RBC 4.93 10^6/uL (3.85-5.65) 04/04/24 04:20 Hgb 13.40 g/dL (11.27-16.99) 04/04/24 04:20 Hct 39.3 % (37-53) 04/04/24 04:20 MCV 79.7 fl (82-101) L 04/04/24 04:20 MCH 27.2 pg (27-33) 04/04/24 04:20 MCHC 34.1 g/dL (30-55) 04/04/24 04:20 RDW 13.2 % (12.1-15.1) 04/04/24 04:20 Plt Count 488 10^3/cmm (157-399) H 04/04/24 04:20 MPV 8.9 fL (7.4-10.4) 04/04/24 04:20 Neut % (Auto) 87.0 % 04/04/24 04:20 Lymph % (Auto) 7.5 % 04/04/24 04:20 Cache % (Auto) 4.7 % 04/04/24 04:20 Eos % (Auto) 0.0 % 04/04/24 04:20 Baso % (Auto) 0.1 % 04/04/24 04:20 Neut # (Auto) 14.60 10^3/uL (1.8-7.7) H 04/04/24 04:20 Lymph # (Auto) 1.3 10^3/uL (0.8-4.8) 04/04/24 04:20 Cache # (Auto) 0.8 10^3/uL (0.2-0.9) 04/04/24 04:20 Eos # (Auto) 0.0 10^3/uL (0.0-0.8) 04/04/24 04:20 Baso # (Auto) 0.0 10^3/uL (0.0-0.1) 04/04/24 04:20 Nucleated RBC % (auto) 0 % 04/04/24 04:20 Nucleated RBCs # 0.0 /100WBC 04/04/24 04:20 ESR 28 mm/hr (0-10) H 04/03/24 03:31 D-Dimer 2.63 ug/mLFEU (0-0.59) H 04/02/24 15:42 Specimen Type Arterial 04/03/24 17:25 Sample Site Brachial, right 04/03/24 17:25 ABG pH 7.48 (7.35-7.45) H 04/03/24 17:25 ABG pCO2 31.2 mmHg (35-45) L 04/03/24 17:25 ABG pO2 55.4 mmHg (80.0-100.0) L 04/03/24 17:25 ABG PO2/FiO2 Ratio 0 04/03/24 17:25 ABG HCO3 23.5 mmol/L (22-26) 04/03/24 17:25 ABG O2 Saturation 90.1 04/03/24 17:25 ABG Base Excess 0.8 mmol/L (-2.0-2.0) 04/03/24 17:25 Ozzie Test N/a 04/03/24 17:25 A-a O2 Gradient 20.8 mmHg (5-10) H 04/03/24 17:25 Hematocrit 41.2 % (42-52) L 04/03/24 17:25 Hgb O2 Saturation 88.6 % (95-100) L 04/03/24 17:25 Carboxyhemoglobin 1.1 %THgb (0.4-20.1) 04/03/24 17:25 Methemoglobin 0.6 % (0.4-1.5) 04/03/24 17:25 Total Hemoglobin 13.4 g/dL (14-18) L 04/03/24 17:25 Sodium 121.0 mmol/L (131-143) L 04/03/24 17:25 Potassium 4.7 mmol/L (3.5-5.0) 04/03/24 17:25 Glucose 330.0 mg/dL (70-115) H 04/03/24 17:25 Ionized Calcium 1.2 mmol/L (1.1-1.4) 04/03/24 17:25 O2 Delivery Device Nc 04/03/24 17:25 O2 Liters/Min 4.0 % 04/03/24 17:25 FiO2 36.0 % 04/03/24 17:25 Operating Cost Clerk ID Gd 04/03/24 17:25 Sodium 120 mmol/L (136-145) L 04/04/24 12:05 Potassium 5.2 mmol/L (3.5-5.1) H 04/04/24 12:05 Chloride 87 mmol/L (98-107) L 04/04/24 12:05 Carbon Dioxide 21 mmol/L (22-29) L 04/04/24 12:05 Anion Gap 17.2 (5-19) 04/04/24 12:05 BUN 42 mg/dL (8-23) H 04/04/24 12:05 Creatinine 1.2 mg/dL (0.7-1.2) 04/04/24 12:05 GFR Calculation Not Reportable 04/04/24 12:05 Glucose 188 mg/dL (65-115) H 04/04/24 12:05 POC Glucose 226 mg/dL (70-110) H 04/04/24 17:00 Estimat Average Glucose 120 03/25/24 03:03 Hemoglobin A1c 5.8 % (4.0-6.0) 03/25/24 03:03 Calculated Osmolality 265 mOsm/kg (285-295) L 04/04/24 12:05 Lactic Acid 1.3 mmol/L (0.5-2.2) 03/24/24 12:04 Calcium 8.8 mg/dL (8.5-10.5) 04/04/24 12:05 Phosphorus 3.2 mg/dL (2.5-4.5) 03/25/24 03:03 Magnesium 2.2 mg/dL (1.7-2.3) 04/04/24 04:20 Iron 18 ug/dL (59-158) L 03/24/24 14:09 TIBC 213 mcg/dl 03/24/24 14:09 % Saturation 8.4 % (20-50) L 03/24/24 14:09 Unsat Iron Binding 195 ug/dL (112-347) 03/24/24 14:09 Total Bilirubin 0.2 mg/dL (0.15-1.2) 04/04/24 04:20 AST 26 U/L (0-40) 04/04/24 04:20 ALT 68 U/L (0-41) H 04/04/24 04:20 Alkaline Phosphatase 115 U/L (40-130) 04/04/24 04:20 Lactate Dehydrogenase 170 U/L (135-225) 04/02/24 15:42 Troponin T Baseline 48 ng/L (0-15) H 03/24/24 12:04 Troponin T 120 Minute 46.65 ng/L (0-15) H 03/24/24 14:09 Delta Troponin T -1.35 ABS# (0-10) L 03/24/24 14:09 Troponin T Hi Sens 6Hr 43.21 ng/L (0-15) H 03/24/24 19:00 Troponin T Hi Sens 6Hr Delta -4.79 ng/L (0-12) L 03/24/24 19:00 C-Reactive Protein 23.8 mg/L (0.0-4.9) H 04/03/24 03:31 NT-Pro-B Natriuret Pep 1546 pg/mL (0-450) H 03/28/24 05:10 Total Protein 6.7 g/dL (6.6-8.7) 04/04/24 04:20 Albumin 3.1 g/dL (3.5-5.2) L 04/04/24 04:20 Globulin 3.6 g/dL (1.3-4.6) 04/04/24 04:20 Triglycerides 59 mg/dL (0-150) 03/25/24 03:03 Cholesterol 108 mg/dL (0-200) 03/25/24 03:03 LDL Cholesterol, Calc 56 mg/dL (50-129) 03/25/24 03:03 HDL Cholesterol 40 mg/dL (60-100) L 03/25/24 03:03 LDL/HDL Ratio 1.40 RATIO (0.00-3.22) 03/25/24 03:03 Cholesterol/HDL Ratio 2.70 mg/dL (1.0-5.00) 03/25/24 03:03 Vitamin B12 268 pg/mL (232-1245) 03/24/24 14:09 Folate 4.7 ng/mL (4.5-32.2) 03/25/24 03:03 Procalcitonin 0.08 ng/mL (0-0.5) 04/02/24 15:42 TSH 2.17 uIU/mL (0.27-4.20) 03/24/24 14:09 Urine Color Yellow (Yellow) 03/24/24 19:20 Urine Appearance Cloudy (CLEAR) A 03/24/24 19:20 Urine pH 6.5 (5-7) 03/24/24 19:20 Ur Specific [place] 1.010 (1.005-1.030) 03/24/24 19:20 Urine Protein Trace (Negative) 03/24/24 19:20 Urine Glucose (UA) Trace (Normal) H 03/24/24 19:20 Urine Ketones 1+ (Negative) H 03/24/24 19:20 Urine Blood 2+ (Negative) H 03/24/24 19:20 Urine Nitrate Negative (Negative) 03/24/24 19:20 Urine Bilirubin Neg (Negative) 03/24/24 19:20 Urine Urobilinogen Neg mg/dL (Negative) 03/24/24 19:20 Ur Leukocyte Esterase 2+ (Negative) H 03/24/24 19:20 Urine RBC 5-10 /hpf (0-2) H 03/24/24 19:20 Urine WBC 25-40 /hpf (0-5) H 03/24/24 19:20 Ur Squamous Epith Cells 0-4 /hpf (0-5) H 03/24/24 19:20 Amorphous Sediment Not Reportable 03/24/24 19:20 Urine Bacteria Trace /hpf (NONE) 03/24/24 19:20 Urine Mucus Trace /hpf 03/24/24 19:20 Vancomycin Trough 13.7 ug/mL (10-15) 03/26/24 04:15 Rheumatoid Factor 14.0 IU/mL (0-14) 04/03/24 03:31 Cycl Citrul Peptide IgG <16 UNITS 04/03/24 03:31 PAULY Screen Negative (NEGATIVE) 04/03/24 03:31 NEL-1 Antibody <1.0 neg AI (<1.0 NEG) 04/03/24 03:31 SS-A/Ro Antibody <1.0 neg AI (<1.0 NEG) 04/03/24 03:31 SS-B/La IgG Antibody <1.0 neg AI (<1.0 NEG) 04/03/24 03:31 Sm (Thompson) Antibody <1.0 neg AI (<1.0 NEG) 04/03/24 03:31 Anti-ds DNA IgG Ab <1 IU/mL 04/03/24 03:31 Adenovirus (PCR) Not detected (NOT DETECT) 03/24/24 16:45 C. pneumoniae DNA (PCR) Not detected (NOT DETECT) 03/24/24 16:45 Coronavirus 229E (PCR) Not detected (NOT DETECT) 03/24/24 16:45 Human Metapneumovir PCR Not detected (NOT DETECT) 03/24/24 16:45 Influenza A (H1) PCR Not detected (NOT DETECT) 03/24/24 16:45 Influ A (H1/09) PCR Not detected (NOT DETECT) 03/24/24 16:45 Influenza A (H3) PCR Not detected (NOT DETECT) 03/24/24 16:45 Influenza Type A (PCR) Not detected (NOT DETECT) 03/24/24 16:45 Influenza Type B (PCR) Not detected (NOT DETECT) 03/24/24 16:45 M. pneumoniae (PCR) Not detected (NOT DETECT) 03/24/24 16:45 Parainfluenza 1 (PCR) Not detected (NOT DETECT) 03/24/24 16:45 Parainfluenza 2 (PCR) Not detected (NOT DETECT) 03/24/24 16:45 Parainfluenza 3 (PCR) Not detected (NOT DETECT) 03/24/24 16:45 Parainfluenza 4 (PCR) Not detected (NOT DETECT) 03/24/24 16:45 RSV Type A (PCR) Not detected (NOT DETECT) 03/24/24 16:45 RSV Type B (PCR) Not detected (NOT DETECT) 03/24/24 16:45 Entero/Rhino (PCR) Not detected (NOT DETECT) 03/24/24 16:45 SARS-CoV-2 (PCR) Not detected (NOT DETECT) 03/24/24 16:45 MRSA (PCR) Not detected (NOT DETECTED) 03/24/24 19:20 Beta-(1,3)-D-Glucan 37 pg/ml 03/28/24 15:12 B-(1,3)-D-Glucan Intrp Negative (Negative) 03/28/24 15:12 Micro: Microbiology 04/02/24 20:30 Bacterial Antigens - Final Urine,Voided A&P Assessment and plan (1) Acute hypoxemic respiratory failure: This patient with underlying degenerative arthritis, pulmonary fibrosis with subpleural honeycombing worsening compared to 2019; admitted for hypoxic respiratory failure with superimposed groundglass opacities suspicious for pneumonia. He is currently adequately treated for bacterial pneumonia with the meropenem as well as azithromycin. Sputum cultures, bacterial antigens, Legionella antigen were negative. Today CT chest revealed persistent bilateral diffuse infiltrates-he does not have any risk factors for immunosuppression; his LDH is normal, beta D glucan is pending; recommended to send PCP PCR although less likely Upon review of 2019 CT chest-there is minimal subpleural honeycombing in the right lung base-comparatively CT scans during this admission have diffuse interstitial pattern definitely appears to be worsening however with superimposing groundglass opacities and consolidations it is difficult to interpret the extent of progression. Given his occupation [employer] throughout his life-it appears wood dust exposure is a significant risk factor. However he is also complaining of history of degenerative arthritis, bilateral hand joint stiffness-elevated ESR, CRP; Pending CTD panel to rule out underlying inflammatory diseases contributing to interstitial lung disease Patient may need PFTs as outpatient to check for the amount of restriction Patient reported he has been bedbound for more than 5 years which could contribute to his severe deconditioning. He needs aggressive physical therapy and pulmonary toileting. Overall given his high FiO2 requirement and diffuse infiltrates- started Bactrim while PCP PCR pending; however patient started becoming hyponatremic, LDH is normal and BD Glucan negative and with no immunosuppression-discontinued Bactrim Most plausible etiology looks like acute exacerbation of interstitial lung disease; recommended to continue Solu-Medrol 40 Mg daily for at least 4 to 6 weeks He is being transferred to LTAC (2) Acquired pneumomediastinum: CT chest today showed moderate pneumomediastinum with no evidence of pneumothorax Gastrografin study did not show any esophageal/gastric leak On physical examination-there is no subcutaneous crepitus over chest wall or right side of the neck Chest x-ray today did not show any worsening of pneumomediastinum Continue oxygen supplementation and monitor with serial chest x-rays (3) Severe pulmonary hypertension: Echocardiogram showed PASP > 65 with normal EF; there is severe TR; normal RV size and systolic function.; Appears this is secondary to group 3-interstitial lung disease Patient may have chronic hypoxia-however he reported of not being on oxygen Currently he is net -7 L since admission; can give Lasix 20 Mg daily with potassium supplementation as needed; supplemental oxygen to keep saturations greater than 89% (4) 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 Critical Care Time: This patient has a high probability of clinically significant, sudden or life threatening deterioration of the patient's (pulmonary, cardiac, renal) systems required my full, direct attention, the highest level of physician preparedness for urgent intervention and personal management. I managed/supervised life or organ supporting interventions that required frequent physician assessment. I devoted my full attention in the ICU to the direct care of this patient for the period of time indicated above. Time I spent with family or surrogate(s) is included only if the patient was incapable of providing necessary information or participating in decision making. This time includes the following services provided: Telemetry review Mechanical Ventilation Hemodynamic interpretation, assessment and management Review and interpretation of CXR Review and interpretation of lab values Review and interpretation of microbiologic data and culture results Review of medications and administration Review and interpretation of Nutrition requirements and management Discussion of management with other consultants and services Clinical update to family members [x] Data and vital sign review and interpretation [x] Patient assessment, examination and intervention [x] Documentation [x] Medication orders and management Time spent for teaching as well as performing procedures are billed separately and is not included in this note Coding Level of Care Code Acute Code for [facility] Diagnoses Acute hypoxemic respiratory failure J96.01 Acquired pneumomediastinum J98.2 Severe pulmonary hypertension I27.20 Pulmonary interstitial 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
[2024-04-04] MEDS: sodium chloride 0.9% 1,000 ML 75 ML IV (14:27)
[2024-04-04] MEDS: nystatin powder 15 gm Btl 1 APPLIC TOPICAL ×2 (14:28→17:09)
[2024-04-04 15:04] LABS: Cyclic Citrullinated Peptide <16 UNITS
[2024-04-04 15:30] LABS: Anti-Nuclear Antibody Screen NEGATIVE (NEGATIVE)
--- NOTE | 2024-04-04 16:10 | PC.NURSE ---
Report called to [facility] in [facility]. Report given to Justin Corral RN. All questions answered.
--- NOTE | 2024-04-04 16:30 | PC.NURSE ---
Pt's , Mrs. Wiggins, Notified via telephone that pt's transfer to [facility] would be this evening. verbalized agreement and understanding.
[2024-04-04 17:03] LABS: Glucose Point of Care 226 mg/dL (70-110)
[2024-04-04 17:03] LABS: Glucose Point of Care 162 mg/dL (70-110)
[2024-04-04] MEDS: pantoprazole 40 mg SDV IVP (17:09)
[2024-04-04] MEDS: atorvastatin 40 mg Tablet 20 MG PO (17:12)
--- NOTE | 2024-04-04 17:35 | PC.NURSE ---
Shift summary: Pt remained resting in bed this sift. He refused offers to assist to recliner. He did allow staff to turn him once and change his bed linens. It was noted he does have a pressure injury stage 2 , at that time. He also has excoriated areas on his lower left buttock and penis and scrotum. Nystatin powder ordered and administered. His sodium level is low at 120, NS IVF started. Sinus first degree block noted on monitor. He is using oxygen at 4lpm/NC now. His lung sounds are much improved. He has called the staff into room tiwce stating he wasn't getting enough air, both times his nasal cannula was not fully lined up in his nostrils. Urine out put of 950 ml. No Bm noted this shift. Pt has not complaint of any pain even with his excoriated private area.
== END 2024-04-04 19:30 | DRG 871 ==
LOC: ER 15:55 → ICU 16:17 → MEDSURG 03-25 14:23 → ICU 04-02 15:58
PROVIDERS: Internal Medicine Pulmonary Disease; Admitting Provider Student in an Organized Health Care Education/Training Program; Emergency Provider Emergency Medicine; Visit Provider Internal Medicine
DX: A41.9 Sepsis, unspecified organism (principal); J18.9 Pneumonia, unspecified organism; J96.01 Acute respiratory failure with hypoxia; I50.32 Chronic diastolic (congestive) heart failure; Z11.52 Encounter for screening for COVID-19; I11.0 Hypertensive heart disease with heart failure; E78.5 Hyperlipidemia, unspecified; E03.9 Hypothyroidism, unspecified; Z79.82 Long term (current) use of aspirin; K21.9 Gastro-esophageal reflux disease without esophagitis; E11.9 Type 2 diabetes mellitus without complications; F17.200 Nicotine dependence, unspecified, uncomplicated; I27.20 Pulmonary hypertension, unspecified; Z74.01 Bed confinement status; J47.9 Bronchiectasis, uncomplicated; B37.9 Candidiasis, unspecified; I08.1 Rheumatic disorders of both mitral and tricuspid valves; J98.2 Interstitial emphysema; L89.322 Pressure ulcer of left buttock, stage 2; M25.642 Stiffness of left hand, not elsewhere classified; M25.641 Stiffness of right hand, not elsewhere classified
CPT/HCPCS: 36415; 36416; 36592; 36600; 51702; 71045; 71250; 71275; 73552; 73562; 74176; 80048; 80051; 80053; 80061; 80202; 81001; 82330; 82607; 82746; 82805; 82962; 83036; 83540; 83550; 83605; 83615; 83735; 83880; 84100; 84145; 84443; 84484; 85025; 85378; 85651; 86038; 86140; 86200; 86225; 86235; 86403; 86431; 87040; 87070; 87086; 87106; 87449; 87486; 87581; 87633; 87641; 93005; 93306; 94640; 94660; 94664; 94669; 94760; 96365; 96367; 96372; 96375; 96376; 97110; 97161; 97530; 99291; C9113; J1644; J1815; J1940; J2020; J2185; J2919; J3370; J3490; J7030; J7050; J7060; J7608; J7613; J7626; Q0144; Q9967